=== PATIENT | male | born 1960 | race Caucasian/White ===

== ENCOUNTER 2016-07-23 08:04 | Inpatient (IN) | payer MEDICAID ==
[~2016-07-23] VITALS: Ht 180.3 cm; Wt 80.5 kg
[2016-07-23] VITALS (15 sets, daily range): BP systolic 80–159; BP diastolic 44–93
[2016-07-23] MEDS ORDERED: ACETAMINOPHEN 650 MG SUPP RC ONE (08:05)
--- NOTE | 2016-07-23 08:05 | NUR ---
Dr. Morales evaluating patient at bedside.
--- NOTE | 2016-07-23 08:05 | NUR ---
0755--Patient was BIBA at this time and taken to bed 01 via gurney per EMS.
--- NOTE | 2016-07-23 08:05 | NUR ---
PLACED BUSTER Amiigo CARESCAPE R860 VENTILATOR PLUGGED INTO RED OULTET TO A PORTEX #8 DCT CUFF PRESSURE CHECKED FOR MOV RN'S AT BEDSIDE FOR IV INSERTION, PHYSICAL HYGIENE AND OTHER PATIENT CARE LAY UP OPERATOR UNABLE TO OBTAIN OTHER VENTILATOR READINGS AT THIS TIME DUE TO FOREMENTIONED AND PATIENT MOVEMENT
--- NOTE | 2016-07-23 08:05 | NUR ---
RT at bedside.
[2016-07-23] MEDS ORDERED: ACETAMINOPHEN 325 MG SUPP RC ONE (08:10)
--- NOTE | 2016-07-23 08:14 | NUR ---
BIBA DUE RESP DISTRESS AND FEVER, APHASIC,FROM COMMUNITY EXTENDED, HX OF VENT DEPENDENTDENT DUE TO CVA, HX OF SEIZURES,MRSA SPUTUM, DM, HTN . PT EYES OPEN WITH TRACH, PORTEX 8, EMS BAGGING PT UPON ARRIVAL, PER EMS PT ALSO HAS EPISODES OF VOMITING DURING TRANSPORT, NOTED YELLOWISH OUTPUT ON GOWN, VITAL SIGN OBTAINED, PT WITH FEVER, COOLING MEAUSRES, WET WASH CLOT ON FOREHEAD, NOTED SMALL YELLOWISH BRUISE ON LEFT ARM, PT CONTRACTED ON UPPER AND LOWER EXTREMITIES, WITH GT, DRESSING APPLIED ON GT AND CHECK FOR RESIDUAL,NO RESIDUAL NOTED , ABLE TO FLUSH GT WITH 30 ML WATER, WITH CONDOM CATH IN PLACE, YELLOWISH URINE NOTED, DR. ENCISO AT BEDSIDE, AND CHARGE NURSE PUTTING IV LINE, WILL CHECK SACRAL LATER. HOB UP. Addendum: 07/23/16 at 0840 by [email or web address] SUCTIONED PT.
[2016-07-23] MEDS ORDERED: NACL 0.9% 1,000 ML IV SCH ×2 (08:19→14:40)
--- NOTE | 2016-07-23 08:30 | NUR ---
ER DIRECTOR Mauricio at bedside.
--- NOTE | 2016-07-23 08:33 | NUR ---
DR. ENCISO AWARE OF THE RESULT OF URINE DIPSTICK
--- NOTE | 2016-07-23 08:33 | NUR ---
LAB/XRAY AT BEDSIDE.
--- NOTE | 2016-07-23 08:39 | NUR ---
LAB AT BEDSIDE , DIRECTOR BUSTER TRYING TO PUT AN IV
[2016-07-23] MEDS ORDERED: LANOXIN0.125 MG GT (09:07)
[2016-07-23] MEDS ORDERED: ZOFRAN4 M1 GT (09:07)
[2016-07-23] MEDS ORDERED: DIOVAN80 M1 GT (09:07)
[2016-07-23] MEDS ORDERED: DULCOLAX10 M2 RC (09:07)
[2016-07-23] MEDS ORDERED: TYLENOL325 M2 GT (09:07)
[2016-07-23] MEDS ORDERED: ZAFIRLUKAST10 MG GT (09:07)
[2016-07-23] MEDS ORDERED: HYDRALAZINE10 MG GT (09:07)
[2016-07-23] MEDS ORDERED: NEXIUM20 MG GT (09:07)
[2016-07-23] MEDS ORDERED: DILANTIN-1125 MG/5 M GT (09:07)
[2016-07-23] MEDS ORDERED: KEPPRA100 MG/ML GT (09:07)
[2016-07-23] MEDS ORDERED: FERROUS SULF GT (09:07)
[2016-07-23] MEDS ORDERED: VITAMIN C500 MG/5 M GT (09:07)
[2016-07-23] MEDS ORDERED: NORCO 325 MG-51 TAB GT (09:07)
[2016-07-23] MEDS ORDERED: PRO STAT PO (09:07)
[2016-07-23] MEDS ORDERED: MULTIPLE VITAMI1 T25 GT (09:07)
--- NOTE | 2016-07-23 09:30 | NUR ---
ABG RESULTS GIVEN TO . ER PHYSICIAN REQUESTED PT BE PLACED ON FIO2 100%. VENT CHANGE CONFIRMED WITH ER PHYSICIAN.
--- NOTE | 2016-07-23 09:37 | NUR ---
DR. ENCISO INSERTING CENTRAL LINE AT BEDSIDE AT THIS TIME. WILL CONTINUE TO MONITOR.
--- NOTE | 2016-07-23 09:48 | NUR ---
DR. ENCISO FINISHED WITH CENTRAL LINE PLACEMENT ON RIGHT SUBCLAVIAN, WAITING FOR XRAY TO VERIFY PLACEMENT, PT EYES OPEN, PER DR. ENCISO ONE PORT HAS NO BLOOD RETURN, WILL RECHECK WHAT PORT HAS NO BLOOD RETURN , NOTED DRESSING ON SACRAL, WILL RECHECK MORE LATER.
--- NOTE | 2016-07-23 09:51 | NUR ---
XRAY AT BEDSIDE.
[2016-07-23] MEDS ORDERED: PIPERACILLIN/TAZOBACTAM 3.375 GM in DEXTROSE 5% 50 ML IV ONE (09:55)
[2016-07-23] MEDS ORDERED: NACL 0.9% 250 ML IV ONE (09:55)
[2016-07-23] MEDS ORDERED: NACL 0.9% 1,500 ML IV ONE (09:55)
[2016-07-23] MEDS ORDERED: PIPERACILLIN/TAZOBACTAM 3.375 GM VIAL IV ONE (10:01)
--- NOTE | 2016-07-23 10:12 | NUR ---
PER DR. ENCISO RED PORT NO BLOOD RETURN, PT EYES OPEN, MD AWARE STILL WITH FEVER AND PT PERSPIRING, LATEST VITAL SIGN OBTAINED, RT AT BEDSIDE,PER DR. ENCISO OK TO USE CENTRAL LINE.
[2016-07-23] MEDS ORDERED: ACETAMINOPHEN 325 MG TAB PO PRN (10:25)
[2016-07-23] MEDS ORDERED: ONDANSETRON 4 MG/2 ML VIAL IVP PRN ×2 (10:25→11:41)
[2016-07-23] MEDS ORDERED: DOCUSATE SODIUM 100 MG GELCAP PO PRN (10:25)
[2016-07-23] MEDS ORDERED: MORPHINE SULFATE 2 MG/ML SYR IVP PRN (10:25)
--- NOTE | 2016-07-23 10:25 | NUR ---
PATIENT TRANSFERRED TO RADIOLOGY FOR CT SCAN OF CHEST/ABDOMINAL REMOVED FROM VENTILATOR PLACED ON AMBU BAG TO SUPPLEMENTAL OXYGEN VIA E-TANK AT 15 LPM BAG DEPRESSION EVERY SIX SECONDS HR 112 SATURATION 100%
--- NOTE | 2016-07-23 10:26 | NUR ---
PT WENT TO CT VIA [facility] ASSSISTED BY CHARGE NURSE, AND RT WITH SECURITY SYSTEMS INTEGRATOR, PT EYES OPEN
--- NOTE | 2016-07-23 10:36 | NUR ---
TOLERATED CT SCAN PROCEDURE WELL WITHOUT INCIDENT TRANSFERRED BACK TO ED-1 AMBU BAG TO TRACH WITH SUPPLEMENATL OXYGEN AT 15 LPM BAG DEPRESSION EVERY SIX SECONDS HR 114 SATURATION 100% PLACED BACK ON A CorvaliusAPE R860 VENTILATOR WITH SAME SETIINGS PREVIOUS
--- NOTE | 2016-07-23 10:40 | NUR ---
Patient back from CT via [facility].
--- NOTE | 2016-07-23 10:45 | NUR ---
AWAKE TOLERATING VENTILATOR WELL WIHOUT INCIDENT BREATH SOUNDS RHONCHI BILATERAL WITH GOOD CHEST RISE DEEP TRACHEAL SUCTION FOR MODERATE THIN YELLOW SECRETIONS AIRWAY PATENT
--- NOTE | 2016-07-23 10:48 | NUR ---
PATIENT PRESENTING WITH EMESIS AT THIS TIME ORAL PHARYNGEAL SUCTION FOR COPIOUS GASTRIC CONTENT RN AT BEDSIDE AWARE
--- NOTE | 2016-07-23 10:50 | NUR ---
RT AT BEDSIDE SUCTIONING PT
[2016-07-23] MEDS ORDERED: ALBUTEROL SULFATE/IPRATROPIU 3 ML SOL IH PRN ×2 (11:05→11:40)
--- NOTE | 2016-07-23 11:07 | NUR ---
CHARGE NURSE INSERTING NEW CONDOM CATH
[2016-07-23] MEDS ORDERED: hydrALAZINE 10 MG TAB GT PRN (11:15)
[2016-07-23] MEDS ORDERED: ACETAMINOPHEN 325 MG TAB GT PRN (11:15)
[2016-07-23] MEDS ORDERED: HYDROcodone/APAP 5/325 MG 1 TAB TAB GT PRN ×2 (11:15)
[2016-07-23] MEDS: PHENYTOIN 100 MG/4 ML UDC GT SCH ×2 (11:15→21:19)
[2016-07-23] MEDS ORDERED: ONDANSETRON 4 MG TAB GT PRN (11:15)
[2016-07-23] MEDS ORDERED: BISACODYL 10 MG SUPP RC PRN (11:15)
--- NOTE | 2016-07-23 11:23 | NUR ---
Pt report given to junior. Transfer of care at this time.
--- NOTE | 2016-07-23 11:35 | NUR ---
PATIENT AND VENTILATOR TRANSFERRED TO ICU-7 PATIENT REMOVED CARESCAPE R860 VENTILATOR PLACED ON AMBU BAG TO TRACHEOSTOMY SUPPLEMENTAL OXYGEN PROVIDED VIA E-TANK AT 15 LPM BAG DEPRESSIN EVERY SIX SECONDS HR 106 SATURATION 100% TOLERATED TRANSFER WELL WITHOUT INCIDENT Aries BAZZI RCP AND Gabriel MANCINI RCP ATTENDING TRANSFER
--- NOTE | 2016-07-23 11:36 | NUR ---
Patient taken to ICU via gurney per nurse/RT.
--- NOTE | 2016-07-23 11:43 | NUR ---
PLACED PATIENT BACK ON A [employer] R860 VENTILATOR TO TRACHEOSTOMY TUBE WITH SAME SETTINGS NOTED PREVIUOSLY
--- NOTE | 2016-07-23 11:47 | NUR ---
ADMITTED 55 YEAR OLD MALE FROM ER VIA RNEY WITH A DX OF SEPSIS, ASPIRATION PNA, UTI. PT IS APHASIC, UNABLE TO FOLLOW SIMPLE COMMANDS, NON VERBAL, ABLE TO RESPOND TO PAINFUL STIMULI, VITALS STABLE AT THIS TIME, AFEBRILE WITH ST ON MONITOR, PT IS ON TRACH TO VENT WITH SETTINGS OF AC RATE OF 10, TIDAL VOLUME 600, FIO2 100%, PEEP OF 5, RHONCHI AUSCULTATED NOTED WITH GOOD CHEST RISING, PT HAS G-TUBE IN PLACE NOTED, ACTIVE BOWEL SOUNDS AUSCULTATED, CONDOM CATHETER IN PLACE WITH NO DRAINAGE NOTED AT THIS TIME, HAS SACRAL AREA DECUBITUS NOTED WITH MINIMAL DRAINAGE NOTED ON THE DRESSING, PT'S LEFT LEG IS CONTRACTED, NO S/S OF RESPIRATORY DISTRESS OR DISCOMFORT NOTED, MRSA SWAB COLLECTED, SAFETY/FALL/ASPIRATION/SZ PRECAUTION ENFORCED, WILL CONTINUE TO MONITOR.
--- NOTE | 2016-07-23 11:55 | NUR ---
DR. BAKER VISITED THE PT. WILL FOLLOW UP WITH ORDERS.
[2016-07-23] MEDS: CLINDAMYCIN 300 MG in DEXTROSE 5% 50 ML IV SCH ×3 (12:20→23:35)
--- NOTE | 2016-07-23 12:20 | NUR ---
DUE DILANTIN MEDICATION HELD, NOTIFIED PHARMACIST LITO REGARDING CURRENT DILANTIN LEVEL, PER LITO, HOLD THE DILANTIN.
--- NOTE | 2016-07-23 12:39 | NUR ---
PT ON VENTILATOR. VENT SETTINGS AC 10, VT 600, PEEP 5 AND FIO2 60%. TRACH CARE COMPLETED, GAUZE CHANGED ALONG WITH TRACH TIE AND INNER CANNULA. SITE AROUND STOMA SHOWS SLIGHT REDNESS AREA CLEANED. PT TRACH SIZE IS 8 PORTEX. AIRWAY IS PATENT AND TRACH IS SECURE. VENT ALARMS ARE ON AND FUNCTIONING. AMBU BAG IS PRESENT AT BEDSIDE. VENT IS PLUGGED INTO RED OUTLET. WILL CONTINUE TO MONITOR.
--- NOTE | 2016-07-23 13:03 | NUR ---
WOUND CARE NURSE AT BEDSIDE EVALUATING PT. PT HAD A LARGE SOLID BOWEL MOVEMENT, CLEANED AND CHANGED, WILL CONTINUE TO MONITOR.
[2016-07-23] MEDS: LEVOFLOXACIN 750 MG/D5W PREMIX 150 ML IV SCH (13:19)
[2016-07-23] MEDS: NACL 0.9% 1,000 ML IV SCH ×3 (13:20→21:34)
--- NOTE | 2016-07-23 13:20 | NUR ---
BP 81/58. DR. BEAULIEU NOTIFIED.
[2016-07-23] MEDS: ALBUTEROL SULFATE/IPRATROPIU 3 ML SOL IH SCH ×3 (15:14→23:18)
--- NOTE | 2016-07-23 15:22 | NUR ---
PT SUCTIONED OBTAINED LARGE AMOUNT OF BLOOD TINGED YELLOW SECRETIONS, AIRWAY IS PATENT. TRACH IS SECURE. WILL CONTINUE TO MONITOR.
--- NOTE | 2016-07-23 15:40 | NUR ---
PT CLEAN AND DRY, PT HAD LARGE AMOUNT OF SALIVA NOTED ON GOWN.
--- NOTE | 2016-07-23 16:19 | NUR ---
WOUND CARE EVALUATION NOTES: REASONS FOR EVALUATION: SACRAL WOUND COMPLETE SKIN ASSESSMENT DONE ON THIS 55 Y/O MALE PATIENT FROM [facility] TO [facility], WITH INITIAL DIAGNOSIS OF SEPSIS/ASPIRATION PNEUMONIA. PAST MEDICAL HISTORY INCLUDE CVA, CHRONIC RESPIRATORY FAILURE, DIABETES, HYPERTENSION AND SEIZURES. ALL ABOVE INFORMATION WAS OBTAINED FROM THE ADMISSION H&P. LABS ARE WBC 21.9, H/H 13.1/40.3, GLUCOSE 234, ALBUMIN 3.2, PT/INR 11.2/1.2 AND PTT 23.4. CURRENT MEDS INCLUDE MULTIVITAMINS, LEVOFLOXACIN, CLINDAMYCIN, NORCO AND MORPHINE. PATIENT IS AWAKE, NON VERBAL, EYES ARE NOT ABLE TO TRACK MOVEMENTS. SKIN WARM TO TOUCH WNL, TOENAILS WNL, NO EDEMA, FEW HAIR GROWTH AND +2 BILATERAL PEDAL PULSES. FC 14 FR PATENT AND INTACT TO YELLOW URINE IN MODERATE AMOUNT. RIGHT SUBCLAVIAN CENTRAL LINE NOTED WITH DRESSING DRY AND INTACT. NEEDS MAX ASSISTANCE IN TURNING. INITIAL PLAN OF CARE AND PRESSURE PREVENTIVE MEASURES DISCUSSED, UNABLE TO VERBALIZE UNDERSTANDING. WILL REINFORCE TEACHING. INTEGUMENTARY: COCCYX - ST III. PW WITH FUNGAL LIKE RASH RECOMMENDATIONS: -CLEANSE SACRALCOCCYX WITH NS AND GAUZE, PAT DRY, APPLY THERAHONEY GEL TO WOUND BED, ANTIGUNGAL CLEAR OINT TO PERIWOUND, COVER WITH COMPOSITE DRESSING Q DAY AND PRN WITH SOILING/DISPLACEMENT -TURN AND REPOSITION PATIETN Q 2H TO LEFT AND RIGHT SIDE ONLY TO OFFLOAD SACRALCOCCYX -ASSESS AND MONITOR SKIN CONDITION DURING POSITION CHANGE, PLEASE PAY PARTICULAR ATTENTION TO SACRALCOCCYX, ELBOWS AND HEELS -OFFLOAD BILATERAL HEELS BY PLACING PILLOWS UNDER CALVES AT ALL TIMES, UNLESS OTHERWISE CONTRAINDICATED -KEEP SKIN CLEAN AND DRY AT ALL TIMES. RECOMMENDATIONS DISCUSSED WITH PRIMARY RN AND RESIDENT PHYSICIAN, DR. VORA. WILL FOLLOW UP PATIENT Q 7 DAYS AND PRN. PLEASE CONTACT [facility] FOR ANY CONCERNS, QUESTIONS AND CHANGES IN WOUND CONDITION.
--- NOTE | 2016-07-23 17:18 | NUR ---
FIO2 DECREASED TO 50%. PT REMAINS ON DOCUMENTED VENT SETTINGS AC 10, VT 600, PEEP 5 FIO2 50%. PT SUCTIONED OBTAINED MODERATE AMOUNT OF THICK YELLOW SECRETIONS, AIRWAY IS PATENT. TRACH SECURE. VENT ALARMS REMAIN ON AND FUNCTIONING.
--- NOTE | 2016-07-23 17:23 | NUR ---
CALLED AND SPOKE TO DR. VORA AND INFORMED THAT PT HAS NO URINE NOTED ON CONDOM CATH. NEW ORDERS RECEIVED, WILL CARRY OUT NEW ORDER.
--- NOTE | 2016-07-23 17:35 | NUR ---
ENDORSED PT TO ADAL RAMIREZ FOR CONTINUITY OF CARE. PT IS STABLE AT THIS TIME.
--- NOTE | 2016-07-23 17:40 | NUR ---
ASSUMED CARE. TRACH TO VENT TV 600, FI02 50%, AC 10, PEEP 5. NO RESP. DISTRESS NOTED. RT. TLC W/ SMALL BLEEDING NOTED. IV 0.9 NS AT 120 ML/HR. GT TUBE INTACT. NPO FOR NOW. CONDOM CATH. LEAKING. COMPLETE BED BATH DONE. LINENS CHANGED. SCDS TO LOWER EXT.
--- NOTE | 2016-07-23 18:00 | NUR ---
OLIVARES CATH FR. 16 INSERTED ASEPTICALLY, OBTAINED 50 YELLOWISH URINE WITH WHITISH SEDIMENTS.
--- NOTE | 2016-07-23 19:35 | NUR ---
RECEIVED REPORT FROM CHARGE NURSE JAMES GALEAS. PATIENT IS AAOX1, NONVERBAL. EYES OPEN SPONTANEOUSLY BUT DOES NOT TRACK. PATIENT UNABLE TO FOLLOW VERBAL COMMANDS. BUE AND BLE ARE CONTRACTED. BREATH SOUNDS ARE CLEAR UPON AUSCULTATION. PATIENT IS TRACH TO VENT WITH SETTINGS OF FIO2 OF 50%, TIDAL VOLUME OF 600, A/C 10, AND PEEP OF 5. BOWEL SOUNDS ARE PRESENT. ABDOMEN IS DISTENDED, BUT IT IS SOFT AND NON-TENDER. THERE IS A G-TUBE PRESENT IN LEFT UPPER QUADRANT. THERE IS A OLIVARES CATHETER DRAINING TO GRAVITY WITH MODERATE AMOUNT OF YELLOW URINE NOTED. SCDS ARE IN PLACE FOR VTE PROPHYLAXIS. THERE IS A ISRAEL CATHETER IN THE THE RIGHT SUBCLAVIAN RECEIVING NORMAL SALINE AT 120 ML/HR. SITE IS DRY, INTACT AND ASYMPTOMATIC. THERE IS A SACRAL PRESSURE WOUND COVERED WITH DRESSING THAT IS DRY AND INTACT. HOB AT 30 DEGREES WITH BED IN LOW POSITION. CONTINUE TO MONITOR PATIENT.
--- NOTE | 2016-07-23 19:39 | NUR ---
PT RECEIVED FROM IRAM ON NOTED VENT SETTINGS. PT AWAKE, HAS A #8 PORTEX [address] IN [address]. BS COARSE BILATERALLY, DIMINISHED AFTER HHN TX AND SUCTIONING OF SCANT AMT THIN PINK TINGED SECRETIONS. NO ADVERSE EFFECTS NOTED. VENT ALARMS ON AND AUDIBLE, VENT PLUGGED INTO RED ELECTRICAL OUTLET, AMBU BAG ON SIDE OF VENT.
--- NOTE | 2016-07-23 19:50 | NUR ---
VAP ORAL CARE RENDERED. NO S/S OF SOB NOTED. CHANGED CVP DRESSING. CONTINUE TO MONITOR PATIENT.
--- NOTE | 2016-07-23 19:55 | NUR ---
PATIENT REPOSITIONED FOR COMFORT.
[2016-07-23] MEDS ORDERED: NACL 0.9% 1,000 ML IV PRN (20:50)
[2016-07-23] MEDS ORDERED: INSULIN ASPART SLIDING SCALE 100 UNITS/ML VIAL SUBQ PRN (20:50)
--- NOTE | 2016-07-23 20:50 | NUR ---
DR. VORA ON UNIT. PROVIDED DOCTOR WITH PATIENT'S STATUS. NEW PRN ORDERS GIVEN. WILL FOLLOW UP WITH NEW ORDERS.
[2016-07-23] MEDS ORDERED: VALSARTAN 80 MG TAB GT SCH (21:00)
[2016-07-23] MEDS ORDERED: levETIRAcetam 100 MG/ML ORASYR GT SCH (21:00)
[2016-07-23] MEDS: FERROUS SULFATE 300 MG/5 ML UDC GT SCH (21:17)
[2016-07-23] MEDS: SACCHAROMYCES 250 MG CAP GT SCH (21:17)
[2016-07-23] MEDS: MONTELUKAST SODIUM 10 MG TAB GT SCH (21:18)
--- NOTE | 2016-07-23 21:24 | NUR ---
VENT CHECKED. NO DISTRESS NOTED. NO SUCTIONING NEEDED AT THIS TIME.
[2016-07-23] MEDS: BLOOD GLUCOSE MONITORING 1 DEV DEV FS SCH (21:36)
--- NOTE | 2016-07-23 21:38 | NUR ---
TOLERATED SCHEDULED MEDICATION ADMINISTRATION WELL. DID NOT ADMINISTER SCHEDULED 2099 DIOVAN R/T BP IS 91/72. BLOOD SUGAR IS 112. NO INSULIN COVERAGE NEEDED AT THIS TIME. CONTINUE TO MONITOR PATIENT. Addendum: 07/23/16 at 2156 by Oscar Chavez RN CHARGE NURSE MADELYN GALEAS MADE AWARE THAT SCHEDULED 2099 DIOVAN WAS NOT ADMINISTERED R/T BP IS 91/72.
--- NOTE | 2016-07-23 22:32 | NUR ---
PATIENT REPOSITIONED FOR COMFORT. NO SIGNS OF SOB OR RESPIRATORY DISTRESS NOTED. HEAD OF THE BED AT 30 DEGREES WITH BED IN LOW POSITION. CONTINUE TO MONITOR PATIENT.
--- NOTE | 2016-07-23 23:32 | NUR ---
VENT CHECKED, PT AWAKE, INLINE HHN TX GIVEN. BS CLEAR. PT LAVAGED AND SUCTIONED SM AMT CREAM COLORED SECRETIONS. NO ADVERSE EFFECTS NOTED.
--- NOTE | 2016-07-23 23:41 | NUR ---
VAP ORAL CARE RENDERED. NO SIGNS OF SOB OR RESPIRATORY DISTRESS NOTED. HOB AT 30 DEGREES WITH BED IN LOW POSITION. CONTINUE TO MONITOR PATIENT.
[2016-07-24] VITALS (73 sets, daily range): BP systolic 67–143; BP diastolic 39–88
--- NOTE | 2016-07-24 01:13 | NUR ---
PATIENT REPOSITIONED FOR COMFORT. NO SIGNS OF SOB NOTED. HOB AT 30 DEGREES WITH BED IN LOW POSITION. CONTINUE TO MONITOR PATIENT.
[2016-07-24] MEDS: NACL 0.9% 1,000 ML IV SCH ×2 (01:16→09:02)
--- NOTE | 2016-07-24 01:40 | NUR ---
VENT CHECKED. PT AWAKE, BS APPEAR CLEAR, NO SUCTIONING NEEDED.
[2016-07-24] MEDS: ALBUTEROL SULFATE/IPRATROPIU 3 ML SOL IH SCH ×6 (03:43→23:45)
--- NOTE | 2016-07-24 04:00 | NUR ---
VENT CHECKED. HME AND TRACH GAUZE CHANGED. PT GIVEN HHN TX INLINE, LAVAGED AND SUCTIONED SMALL AMT CREAMY SECRETIONS. NO ADVERSE EFFECTS NOTED.
--- NOTE | 2016-07-24 04:30 | NUR ---
MORNING CARE RENDERED. BED BATH PROVIDED. CHANGED PATIENT'S GOWN AND LINENS. VAP ORAL CARE RENDERED. PATIENT REPOSITIONED FOR COMFORT. HOB AT 30 DEGREES WITH BED IN LOW POSITION. CONTINUE TO MONITOR PATIENT.
--- NOTE | 2016-07-24 04:50 | NUR ---
PATIENT RESTING IN BED, WATCHING TV. OFFERED TO ASSISTANCE FOR MORNING CARE TO PATIENT. PATIENT REFUSED MORNING CARE AT THIS TIME AND STATED "I WANT TO WAIT. I GOT A BATH YESTERDAY." PATIENT'S NEEDS MET AT THIS TIME. HOB AT 30 DEGREES WITH BED IN LOW POSITION. CALL LIGHT WITHIN PATIENT'S REACH. CONTINUE TO MONITOR PATIENT. Addendum: 07/24/16 at 0452 by Oscar Chavez RN WRONG PATIENT.
--- NOTE | 2016-07-24 04:52 | NUR ---
SOLE INKER AT BEDSIDE FOR SCHEDULED MORNING LAB DRAW.
[2016-07-24] MEDS: CLINDAMYCIN 300 MG in DEXTROSE 5% 50 ML IV SCH ×4 (06:25→23:19)
[2016-07-24] MEDS: BLOOD GLUCOSE MONITORING 1 DEV DEV FS SCH ×4 (06:28→21:08)
--- NOTE | 2016-07-24 06:32 | NUR ---
RECEIVED PT ON CARESCAPE ON A\C 12 VT 600 PEEP 5 FIO2 50 ALARMS ARE ON AND FUNCTIONAL BMV HOB PTS TRACH PORTEX 8 IS SECURE PT IN HF QUIET BS COARSE I\L LAVAGE AND SX LG YELLOW HHN GIVEN I\L WITH 3 MG DUONEB Addendum: 07/24/16 at 0857 by Kamilla Mae RT CORRECT RR IS 10
--- NOTE | 2016-07-24 06:42 | NUR ---
PATIENT REPOSITIONED FOR COMFORT. NO SIGNS OF SOB NOTED. HOB AT 30 DEGREES WITH BED IN LOW POSITION. CONTINUE TO MONITOR PATIENT.
--- NOTE | 2016-07-24 07:08 | NUR ---
ENDORSED CONTINUITY OF CARE TO LIZETH GALEAS.
--- NOTE | 2016-07-24 07:40 | NUR ---
RECEIVED REPORT FROM DRISS GALEAS. PATIENT IS NONVERBAL. OPEN EYES SPONTANEOUSLY BUT DOES NOT FOLLOW COMMANDS. BUE AND BLE ARE CONTRACTED. BREATH SOUNDS WHEEZES UPON AUSCULTATION. PATIENT IS TRACH TO VENT WITH SETTINGS OF FIO2 OF 50%, TIDAL VOLUME OF 600, A/C 10, AND PEEP OF 5. ACTIVE BOWEL SOUNDS . ABDOMEN IS DISTENDED, SOFT . G-TUBE PRESENT IN LEFT UPPER QUADRANT. THERE IS A OLIVARES CATHETER DRAINING TO GRAVITY WITH MODERATE AMOUNT OF LIGHT RIA URINE NOTED. SCDS ARE IN PLACE FOR VTE PROPHYLAXIS. A ISRAEL CATHETER IN THE THE RIGHT SUBCLAVIAN RECEIVING NORMAL SALINE AT 120 ML/HR. SITE IS DRY, INTACT AND ASYMPTOMATIC. SACRAL PRESSURE WOUND COVERED WITH DRESSING SITE DRY AND INTACT. NO FEVER AT THIS TIME. HOB AT 30 DEGREES WITH BED IN LOW POSITION. CONTINUE TO MONITOR PATIENT.
--- NOTE | 2016-07-24 07:54 | NUR ---
PATIENT HAS BEEN SCREENED AND CATEGORIZED HIGH NUTRITION RISK. PATIENT WILL BE SEEN WITHIN 1-2 DAYS OF ADMISSION. 07/24/16-07/25/[address]
[2016-07-24] MEDS ORDERED: LORazepam 2 MG/ML VIAL IVP PRN (08:00)
--- NOTE | 2016-07-24 08:13 | NUR ---
PT HAD SEIZURE FOR 45 SECONDS, ON AND OFF. TWITCH EYES AND MOUTH, SHAKING BUE. DR. APODACA AT BEDSIDE TO ASSESS PT. PER , ATIVAN 2MG IVP. ORDER CARRIED OUT, WILL CONTINUE TO MONITOR.
--- NOTE | 2016-07-24 08:54 | NUR ---
VENT CHECK BS CLEAR AIRWAY IS PATENT DECREASE FIO2 TO 40
[2016-07-24] MEDS: MULTIVITAMIN/MINERALS 15 ML UDBTL PO SCH (09:00)
[2016-07-24] MEDS ORDERED: levETIRAcetam 100 MG/ML ORASYR GT SCH (09:00)
[2016-07-24] MEDS: NOREPINEPHRINE 4 MG in DEXTROSE 5% 250 ML IV PRN ×3 (09:35→21:30)
--- NOTE | 2016-07-24 09:35 | NUR ---
STARTED PT ON LEVOPHED DRIP DUE TO PT'S HYPOTENSION PER MD ORDER.
[2016-07-24] MEDS: LANSOPRAZOLE 30 MG CAPDR GT SCH (09:39)
[2016-07-24] MEDS: DIGOXIN 0.125 MG TAB GT SCH (09:40)
[2016-07-24] MEDS: FERROUS SULFATE 300 MG/5 ML UDC GT SCH ×2 (09:40→21:09)
[2016-07-24] MEDS: SACCHAROMYCES 250 MG CAP GT SCH ×2 (09:42→21:09)
--- NOTE | 2016-07-24 10:00 | NUR ---
REPOSITIONED PT. PT HAD MODERATE AMOUNT OF GREENISH SOFT STOOL, CLEANED PT. SUCTIONED PT .
--- NOTE | 2016-07-24 10:16 | NUR ---
VENT CHECK BS COARSE I\L LAVAGE AND SX LG YELLOW I\L HHN WITH 3 MG DUONEB
--- NOTE | 2016-07-24 12:05 | NUR ---
PT IS UNRESPONSIVE TO NAME STIMULI. SMALL AMOUNT OF SOFT GREENISH STOOL NOTED WHEN REPOSITIONING PT. CLEANED PT. NO S/S OF RESPIRATORY DISTRESS NOTED. WILL CONTINUE TO MONITOR.
[2016-07-24] MEDS: FLUCONAZOLE 100 MG/NS PREMIX 50 ML IV SCH (12:12)
[2016-07-24] MEDS: HYDROCORTISONE NA SUCC 100 MG/2 ML VIAL IV SCH ×3 (12:27→23:20)
--- NOTE | 2016-07-24 12:56 | NUR ---
VENT CHECK BS CLEAR AIRWAY IS PATENT
--- NOTE | 2016-07-24 13:24 | NUR ---
07/24/16 RD INITIAL ASSESSMENT COMPLETED PLEASE REFER TO NUTRITION ASSESSMENT UNDER CARE ACTIVITY FOR ESTIMATED NUTRITIONAL NEEDS. RD RECOMMENDATIONS: 1. WHEN MEDICALLY APPROPRIATE CONSIDER INITIATE TUBE FEEDINGS NUTREN PULMONARY AT 10 ML/HR AND ADVANCE TOLERATED 10 ML Q6H TO GOAL OF 65 ML/HR --AT GOAL TUBE FEEDING PROVIDES 1560 ML TOTAL VOLUME, 2340 KCAL, 106 GM PROTEIN, 1220 ML FREE WATER AND MEETS 100% OF PT ESTIMATED KCAL AND 96% OF PT ESTIMATED PROTEIN NEEDS 2. RD WILL F/U 2-3 DAYS; HIGH RISK. HYACINTH KHAN RD
[2016-07-24] MEDS: PIPER/TAZO 3.375GM/D5W PREMIX 50 ML IV SCH ×2 (13:30→21:16)
--- NOTE | 2016-07-24 14:10 | NUR ---
REPOSITIONED PT. NO S/S OF RESPIRATORY DISTRESS NOTED. WILL CONTINUE TO MONITOR.
[2016-07-24] MEDS: LEVOFLOXACIN 750 MG/D5W PREMIX 150 ML IV SCH (14:19)
--- NOTE | 2016-07-24 14:52 | NUR ---
VENT CHECK BS COARSE I\L LAVAGE AND SX LG YELLOW CHANGE INNER CANNULA PORTEX 8 TRACH TIE GAUZE WITHOUT INCIDENT Addendum: 07/24/16 at 1511 by Kamilla Mae RT HHN GIVEN I\L WITH 3 MG DUONEB
[2016-07-24] MEDS: levETIRAcetam 1,000 MG in NACL 0.9% 100 ML IV SCH (16:25)
--- NOTE | 2016-07-24 16:48 | NUR ---
VENT CHECK BS COARSE I\L LAVAGE AND SX MOD YELLOW DECREASE FIO2 TO 30 SPO2 100
--- NOTE | 2016-07-24 17:00 | NUR ---
PT TEMP CHECKED 100 F. COOL MEASURE INITIATED. PUT COOL TOWEL ON PT'S FOREHEAD. WILL RECHECK.
--- NOTE | 2016-07-24 18:05 | NUR ---
PT OPEN EYES. PT SMALL AMOUNT OF GREENISH SOFT STOOL,CLEANED PT. NO S/S OF RESPIRATORY DISTRESS NOTED. STILL ON LEVOPHED DRIP 13MCG/MIN. VITALS STABLE AT THIS TIME. WILL CONTINUE TO MONITOR.
--- NOTE | 2016-07-24 19:10 | NUR ---
REPORT GIVEN TO DRISS GALEAS FOR THE CONTINUITY OF CARE. PT IN STABLE CONDITION AT THIS TIME.
[2016-07-24] MEDS ORDERED: THERAHONEY GEL 42.5 GM TP PRN (19:30)
--- NOTE | 2016-07-24 19:30 | NUR ---
RECEIVED PT ON THE SAME VENT SETTINGS, MED NEB IN LINE, SX LARGE WHITE FROTHY SECRETION, CHANGED DRESSING.
--- NOTE | 2016-07-24 19:48 | NUR ---
RECEIVED REPORT FROM LIZETH GALEAS. PATIENT IS AAOX1, NONVERBAL. EYES OPEN SPONTANEOUSLY BUT DOES NOT TRACK. PATIENT UNABLE TO FOLLOW VERBAL COMMANDS. BUE AND BLE ARE CONTRACTED. BREATH SOUNDS ARE CLEAR UPON AUSCULTATION. PATIENT IS TRACH TO VENT WITH SETTINGS OF FIO2 OF 50%, TIDAL VOLUME OF 600, A/C 10, AND PEEP OF 5. RESPIRATORY THERAPIST AT BEDSIDE TO COLLECT SPUTUM CULTURE PER DOCTOR'S ORDERS. BOWEL SOUNDS ARE PRESENT. ABDOMEN IS DISTENDED, BUT IT IS SOFT AND NON-TENDER. THERE IS A G-TUBE PRESENT IN LEFT UPPER QUADRANT. THERE IS A OLIVARES CATHETER DRAINING TO GRAVITY WITH MODERATE AMOUNT OF YELLOW URINE NOTED. SCDS ARE IN PLACE FOR VTE PROPHYLAXIS. THERE IS A ISRAEL CATHETER IN THE THE RIGHT SUBCLAVIAN RECEIVING NORMAL SALINE AT 50 ML/HR AND LEVOPHED AT 13 MCG/MIN. SITE IS DRY, INTACT AND ASYMPTOMATIC. THERE IS A SACRAL PRESSURE WOUND COVERED WITH DRESSING THAT IS DRY AND INTACT. VAP ORAL RENDERED. HOB AT 30 DEGREES WITH BED IN LOW POSITION. CONTINUE TO MONITOR PATIENT.
[2016-07-24] MEDS: MONTELUKAST SODIUM 10 MG TAB GT SCH (21:09)
--- NOTE | 2016-07-24 21:19 | NUR ---
TOLERATED SCHEDULED MEDICATIONS WELL WITH NO SIGNS OF SOB OR RESPIRATORY DISTRESS NOTED. BLOOD SUGAR IS 127. NO INSULIN COVERAGE NEEDED AT THIS TIME. SUCTIONED ORAL SECTION. MINIMAL AMOUNT OF WHITE CREAMY SPUTUM NOTED. HOB AT 30 DEGREES WITH BED IN LOW POSITION. CONTINUE TO MONITOR PATIENT.
--- NOTE | 2016-07-24 22:06 | NUR ---
PATIENT REPOSITIONED FOR COMFORT. NO SIGNS OF SOB OR RESPIRATORY DISTRESS NOTED. HOB AT 30 DEGREES WITH BED IN LOW POSITION. CONTINUE TO MONITOR PATIENT.
--- NOTE | 2016-07-24 23:28 | NUR ---
VAP ORAL CARE RENDERED.
[2016-07-25] VITALS (32 sets, daily range): BP systolic 93–147; BP diastolic 52–90
--- NOTE | 2016-07-25 01:11 | NUR ---
PATIENT REPOSITIONED FOR COMFORT. NO SIGNS OF SOB NOTED. HOB AT 30 DEGREES WITH BED IN LOW POSITION. CONTINUE TO MONITOR PATIENT.
[2016-07-25] MEDS: levETIRAcetam 1,000 MG in NACL 0.9% 100 ML IV SCH ×3 (01:12→16:56)
--- NOTE | 2016-07-25 01:30 | NUR ---
SX LARGE WHITE FROTHY SECRETION, NO DISTRESS NOTED
[2016-07-25] MEDS: NACL 0.9% 1,000 ML IV SCH (03:02)
--- NOTE | 2016-07-25 03:40 | NUR ---
MORNING CARE RENDERED. PATIENT HAD SMALL BM OF DARK GREEN LOOSE STOOL. BED BATH AND PERINEAL CARE PROVIDED. CHANGED LINENS AND GOWN. PATIENT REPOSITIONED FOR COMFORT. VAP ORAL CARE RENDERED. HOB AT 30 DEGREES WITH BED IN LOW POSITION. CONTINUE TO MONITOR PATIENT.
[2016-07-25] MEDS: ALBUTEROL SULFATE/IPRATROPIU 3 ML SOL IH SCH ×6 (03:50→23:59)
[2016-07-25] MEDS: PIPER/TAZO 3.375GM/D5W PREMIX 50 ML IV SCH ×3 (04:48→21:35)
[2016-07-25] MEDS: CLINDAMYCIN 300 MG in DEXTROSE 5% 50 ML IV SCH ×3 (05:54→17:50)
[2016-07-25] MEDS ORDERED: HYDROCORTISONE NA SUCC 100 MG/2 ML VIAL ONE (06:36)
[2016-07-25] MEDS: BLOOD GLUCOSE MONITORING 1 DEV DEV FS SCH ×4 (06:38→21:14)
[2016-07-25] MEDS: HYDROCORTISONE NA SUCC 100 MG/2 ML VIAL IV SCH ×3 (06:40→17:49)
--- NOTE | 2016-07-25 06:40 | NUR ---
BLOOD SUGAR IS 71. NO INSULIN COVERAGE IS NEEDED. CONTINUE TO MONITOR.
--- NOTE | 2016-07-25 06:57 | NUR ---
REC'D PT ON CARESCAPE VENT WITH SETTINGS AC10 VT 600 PEEP 5 FIO2 30% ALARMS ON AND FUNCTIONING PROPERLY, AMBU BAG AT SIDE OF VENTILATOR AND VENTILATOR IS PLUGGED INTO RED OUTLET, I\E TX GIVEN WITH DUONEB 3ML WITH NO ADVERSE REACTION POST TX B\S ARE COARSE BILATERALLY, SNX PT MODERATE AMT OF THICK CREAM COLOR SECRETIONS, PT IS TRACH WITH PORTEX #8 AND SKIN INTEGRITY IS INTACT.
--- NOTE | 2016-07-25 07:09 | NUR ---
ENDORSED CONTINUITY OF CARE TO LIZETH GALEAS.
--- NOTE | 2016-07-25 07:35 | NUR ---
RECEIVED REPORT FROM DRISS GALEAS. PATIENT IS NONVERBAL. EYES OPEN SPONTANEOUSLY BUT DOES NOT FOLLOW VERBAL COMMANDS. BUE AND BLE ARE CONTRACTED. BREATH SOUNDS ARE DIMINISHED UPON AUSCULTATION. PATIENT IS TRACH TO VENT WITH SETTINGS OF FIO2 OF 30%, TV 600, A/C 10, PEEP OF 5. BOWEL SOUNDS ACTIVE, ABDOMEN SOFT AND NON-TENDER. A G-TUBE PRESENT IN LEFT UPPER QUADRANT. OLIVARES CATHETER DRAINING TO GRAVITY WITH SMALL AMOUNT OF YELLOW URINE NOTED. SCDS ARE IN PLACE . CENTRAL LINE IN THE THE RIGHT SUBCLAVIAN RECEIVING NORMAL SALINE AT 50 ML/HR . SITE IS DRY, INTACT AND ASYMPTOMATIC. SACRAL PRESSURE WOUND COVERED WITH DRESSING WHICH IS DRY AND INTACT. VAP ORAL RENDERED. HOB AT 30 DEGREES WITH BED IN LOW POSITION. TEMP CHECKED 100.5, COOL MEASURE INITIATED. WILL CONTINUE TO MONITOR PATIENT. Addendum: 07/25/16 at 0810 by Tess Gillespie RN [employer] RECEIVED SHOWS [facility] S/S OF RESPIRATORY DISTRESS NOTED.
--- NOTE | 2016-07-25 08:05 | NUR ---
TEMP CHECKED 99.8 F. REPOSITIONED PT. SUCTIONED PT WITH SMALL AMOUNT OF CLEAR SECRETION . WILL CONTINUE TO MONITOR.
--- NOTE | 2016-07-25 08:46 | NUR ---
VENT CHECK, NO SXN REQUIRED AT THIS TIME, AIRWAY PATENT AND PT IS RESTING WITH NO SIGNS OF DISTRESS NOTED AT THIS TIME
[2016-07-25] MEDS: THERAHONEY GEL 42.5 GM TP SCH (09:00)
[2016-07-25] MEDS: ANTIFUNGAL CLEAR OINTMENT TP SCH (09:00)
[2016-07-25] MEDS ORDERED: levETIRAcetam 100 MG/ML VIAL IV ONE (09:18)
[2016-07-25] MEDS: DIGOXIN 0.125 MG TAB GT SCH (09:23)
[2016-07-25] MEDS: FERROUS SULFATE 300 MG/5 ML UDC GT SCH ×2 (09:24→21:34)
[2016-07-25] MEDS: LANSOPRAZOLE 30 MG CAPDR GT SCH (09:24)
[2016-07-25] MEDS: MULTIVITAMIN/MINERALS 15 ML UDBTL PO SCH (09:24)
[2016-07-25] MEDS: SACCHAROMYCES 250 MG CAP GT SCH ×2 (09:24→21:35)
--- NOTE | 2016-07-25 10:27 | NUR ---
VENT CHECK, I\L TX GIVEN WITH DUONEB 3ML WITH NO ADVERSE REACTION POST TX, B\S ARE COARSE BILATERALLY, SXN PT LARGE AMT OF CREAM COLOR SECRETIONS, PT IS RESTING WITH NO SIGNS OF DISTRESS NOTED AT THIS TIME
--- NOTE | 2016-07-25 10:32 | NUR ---
TEMP CHECKED 100.5 F, TYLENOL 325 MG GIVEN PER MD ORDER. WILL RECHECK.
--- NOTE | 2016-07-25 11:10 | NUR ---
TEMP CHECKED 99.3 F. WILL CONTINUE TO MONITOR.
[2016-07-25] MEDS: FLUCONAZOLE 100 MG/NS PREMIX 50 ML IV SCH (12:31)
--- NOTE | 2016-07-25 13:15 | NUR ---
PT DOES NOT FOLLOW COMMANDS. SUCTIONED PT WITH MODERATE AMOUNT OF CLEAR SECRETION. CLEANED PT.
--- NOTE | 2016-07-25 13:24 | NUR ---
VENT CHECK, NO SXN REQUIRED AT THIS TIME, PT IS RESTING WITH NO SIGNS OF DISTRESS NOTED AT THIS TIME
[2016-07-25] MEDS: LEVOFLOXACIN 750 MG/D5W PREMIX 150 ML IV SCH (13:46)
--- NOTE | 2016-07-25 14:12 | NUR ---
REPOSITION PT. SUCTIONED PT WITH SMALL AMOUNT OF CLEAR SECRETION. NO S/S OF RESPIRATORY DISTRESS NOTED, WILL CONTINUE TO MONITOR.
[2016-07-25] MEDS ORDERED: LIDOCAINE 1% 500 MG/50 ML VIAL INJ SCH (14:30)
--- NOTE | 2016-07-25 14:52 | NUR ---
WENT TO DO EEG BUT X-RAY DOING A LONG TEST. WILL DO EEG IN AM. DR DOLAN NOTIFIED.
--- NOTE | 2016-07-25 14:57 | NUR ---
PT HAVING XRAY PROCEDURE DONE THAT KEEPS TAKING XRAYS FOR THE NEXT HOUR
[2016-07-25] MEDS ORDERED: FUROSEMIDE 40 MG/4 ML VIAL IVP SCH (15:00)
--- NOTE | 2016-07-25 15:47 | NUR ---
SS NOTE: SENT CURRENT MICROBIOLOGY TO [facility], RECEIVED FAX CONFIRMATION
--- NOTE | 2016-07-25 16:05 | NUR ---
VENT CHECK, SXN PT SMALL AMT OF THICK CREAM COLOR SECRETIONS, PT IS DONE WITH XRAY PROCEDURE
--- NOTE | 2016-07-25 16:13 | NUR ---
PT HAD LARGE AMOUNT OF LIQUID GREENISH STOOL. CLEANED PT, CHANGED LINEN, GOWN , BED BATH GIVEN, WILL CONTINUE TO MONITOR.
--- NOTE | 2016-07-25 17:10 | NUR ---
VENT CHECK, SXN PT MODERATE AMT OF THICK CREAM COLOR SECRETIONS, PT IS GETTING CLEANED
--- NOTE | 2016-07-25 18:10 | NUR ---
PT HAD LARGE AMOUNT OF LIQUID GREENISH STOOL, CLEANED PT, REPOSITIONED PT. NO SOB. WILL CONTINUE TO MONITOR.
--- NOTE | 2016-07-25 19:15 | NUR ---
REPORT GIVEN TO JEWEL GALEAS. PT IN STABLE CONDITION AT THIS TIME. VITALS WITHIN NORMAL.
--- NOTE | 2016-07-25 19:15 | NUR ---
RECEIVED REPORT FROM ADAL STANLEY. PATIENT IS NONVERBAL. EYES OPEN SPONTANEOUSLY BUT DOES NOT FOLLOW VERBAL COMMANDS. TRACH TO VENT WITH SETTINGS OF FIO2 OF 30%, TV 600, A/C 10, PEEP 5. BREATHING EVEN AND UNLABORED, DIMINISHED LUNG SOUNDS. SR ON MONITOR. CENTRAL LINE AT RIGHT SUBCLAVIAN, C/D/I, RUNNING NS AT 50 ML/HR. ACTIVE BOWEL SOUNDS. GT PRESENT, RESIDUAL 30ML. NO TUBE FEEDING ORDER AT THIS TIME. ON OLIVARES CATHETER, DRAINING WELL TO GRAVITY WITH YELLOW URINE. BUE AND BLE ARE CONTRACTED. SCD'S IN PLACE. AFEBRILE, SKIN IS WARM AND DRY TO TOUCH, SACRAL PRESSURE WOUND PRESENT (SEE WOUND ASSESSMENT). SAFETY PRECAUTION, ASPIRATION PRECAUTION, AND SEIZURE PRECAUTION IN PLACE, VSS, WILL CONTINUE TO MONITOR.
--- NOTE | 2016-07-25 20:00 | NUR ---
POSITION CHANGED FOR OFF LOAD PRESSURE, ORAL CARE PROVIDED, NO CHANGE OF CONDITION AT THIS TIME, VSS.
[2016-07-25] MEDS ORDERED: PHENYTOIN 100 MG/4 ML UDC GT SCH (21:00)
--- NOTE | 2016-07-25 21:00 | NUR ---
SCHEDULED MEDICATION GIVEN VIA GT TUBE, PATIENT TOLERATED WELL.
[2016-07-25] MEDS: MONTELUKAST SODIUM 10 MG TAB GT SCH (21:35)
[2016-07-25] MEDS: PHENYTOIN 100 MG/4 ML UDC GT SCH (21:35)
--- NOTE | 2016-07-25 22:00 | NUR ---
NO CHANGE OF CONDITION, POSITION CHANGED FOR OFF LOAD PRESSURE.
[2016-07-26] VITALS (24 sets, daily range): BP systolic 99–144; BP diastolic 50–92
--- NOTE | 2016-07-26 | NUR ---
NO CHANGE OF CONDITION AT THIS TIME, POSITION CHANGED FOR OFF LOAD PRESSURE, ORAL CARE PROVIDED.
[2016-07-26] MEDS: HYDROCORTISONE NA SUCC 100 MG/2 ML VIAL IV SCH ×4 (00:04→18:01)
[2016-07-26] MEDS: CLINDAMYCIN 300 MG in DEXTROSE 5% 50 ML IV SCH (00:05)
--- NOTE | 2016-07-26 00:16 | NUR ---
ADMINISTERED HHNTX, SUCTION MOD AMT OF THIN/THICK/FROTHY CREAM SECRETIONS, CHANGED CHRISTINA, HME, TRACH GAUZE AND TRACH TIE, TOLERATED WELL. NO RESP DISTRESS NOTED, TOLERATING SUPPORT WELL.
--- NOTE | 2016-07-26 00:50 | NUR ---
DR. MAYFIELD CAME TO SEE PATIENT, NEW ORDER OBTAINED AND CARRIED OUT.
[2016-07-26] MEDS ORDERED: TOBRAMYCIN PER PHARMACY MC PRN ×2 (00:55)
[2016-07-26] MEDS: levETIRAcetam 1,000 MG in NACL 0.9% 100 ML IV SCH ×3 (01:16→18:00)
--- NOTE | 2016-07-26 02:00 | NUR ---
POSITION CHANGED FOR OFF LOAD PRESSURE, NO CHANGE OF CONDITION AT THIS TIME.
[2016-07-26] MEDS ORDERED: TOBRAMYCIN IV SCH (03:05)
[2016-07-26] MEDS ORDERED: DEXTROSE 5% IV SCH (03:05)
[2016-07-26] MEDS ORDERED: TOBRAMYCIN 80 MG/2 ML VIAL ONE ×2 (03:34→03:44)
[2016-07-26] MEDS: ALBUTEROL SULFATE/IPRATROPIU 3 ML SOL IH SCH ×6 (03:43→23:24)
[2016-07-26] MEDS ORDERED: MEROPENEM 1,000 MG in NACL 0.9% 100 ML IV SCH (03:56)
[2016-07-26] MEDS ORDERED: MEROPENEM 500 MG VIAL IV ONE (03:58)
--- NOTE | 2016-07-26 04:00 | NUR ---
AM CARE PROVIDED, [place] CARE PROVIDED, ORAL CARE PROVIDED. POSITION CHANGED FOR OFF LOAD PRESSURE.
[2016-07-26] MEDS ORDERED: HYDROCORTISONE NA SUCC 100 MG/2 ML VIAL ONE (05:59)
[2016-07-26] MEDS: NACL 0.9% 1,000 ML IV SCH (06:00)
--- NOTE | 2016-07-26 06:00 | NUR ---
NO CHANGE OF CONDITION, POSITION CHANGED FOR OFF LOAD PRESSURE.
[2016-07-26] MEDS: BLOOD GLUCOSE MONITORING 1 DEV DEV FS SCH ×4 (06:58→21:15)
--- NOTE | 2016-07-26 07:20 | NUR ---
REPORT GIVEN TO ADAL RANDHAWA. PT IN STABLE CONDITION AT THIS TIME. VITALS WITHIN NORMAL.
--- NOTE | 2016-07-26 07:30 | NUR ---
REPORT RECEIVED FROM JEWEL RN, PT AWAKE, BREATHING NORMALLY, TRACH TO VENT, VENT SETTING AT FIO2 30%, RESP 10, AND PEEP OF FIVE, LUNG SOUNDS DIMINISHED TO LOWER LOBES, SB TO SR ON THE MONITOR, S1 S2 HEARD,BOWEL SOUND PRESENT TO ALL QUADRANTS, MD APODACA MADE AWARE OF GT FEEDING POSSIBILITIES, BLADER NON DISTENDED, OLIVARES CATHETER INTACT AND DRAINING WELL. SKIN NON INTACT TO COCCYX AND SCROTUM, WILL CONTINUE TO MONITOR CLOSELY.
--- NOTE | 2016-07-26 07:51 | NUR ---
RECEIVED ON A [employer] R860 VENTILATOR PLUGGED INTO RED OUTLET TOLERATING WELL WITHOUT ADVERSE REACTIONS TO A PORTEX #8 DCT AIRWAY SECURED WITH A STOCKED TRACH TIE CUFF PRESSURE CHECKED FOR MOV AMBU BAG NOTED AT HOB LOC QUIET BREATH SOUNDS RHONCHI BILATERAL WITH GOOD CHEST RISE DEEP TRACHEAL SUCTION FOR LARGE THICK YELLOW SECRETIONS AIRWAY PATENT
--- NOTE | 2016-07-26 08:00 | NUR ---
DR. APODACA AND DR. XAVIER IS AWARE OF NO BLOOD RETURN FROM CENTRAL LINE. BOTH MD AWARE OF PT HR RANGING FROM 38 TO 70, NO NEW ORDER AT THIS TIME.
[2016-07-26] MEDS: PHENYTOIN 100 MG/4 ML UDC GT SCH ×2 (08:50→21:56)
[2016-07-26] MEDS: FERROUS SULFATE 300 MG/5 ML UDC GT SCH ×2 (08:50→21:56)
[2016-07-26] MEDS: DIGOXIN 0.125 MG TAB GT SCH (08:51)
[2016-07-26] MEDS: SACCHAROMYCES 250 MG CAP GT SCH ×2 (08:51→21:56)
[2016-07-26] MEDS: LANSOPRAZOLE 30 MG CAPDR GT SCH (08:51)
--- NOTE | 2016-07-26 08:52 | NUR ---
PT HR RANGING FROM 60 TO 70, LANOXIN GIVEN, MADE AWARE.
[2016-07-26] MEDS ORDERED: KCL 20 MEQ/WATER INJ PREMIX 200 ML IV SCH (09:00)
--- NOTE | 2016-07-26 09:05 | NUR ---
HEPARIN 166 UNITS INSTILL IN R SUBCLAVIAN CATHETER TO CHECK PLACEMENT, AT BED SIDE.
--- NOTE | 2016-07-26 09:07 | NUR ---
NOTIFIED DR. XAVIER THAT PATIENT'S HR GOES DOWN TO 35 TO 38 PERIODICALLY, BP 134/56. AWARE.
--- NOTE | 2016-07-26 09:20 | NUR ---
C-XRAY IS DONE FOR CENTRAL LINE PLACEMENT
--- NOTE | 2016-07-26 09:44 | NUR ---
NO EVIDENCE OF PULMONARY DISTRESS NOTED AT THIS TIME BREATH SOUNDS CLEAR BILATERAL WITH GOOD CHEST RISE
--- NOTE | 2016-07-26 10:04 | NUR ---
NOTIFIED DR. XAVIER THAT PATIENT'S XRAY IMAGE IS UP. ALSO THAT CENTRAL LINE IS STILL CLOTTED AND HR IS SUSTAINED AT 39BPM WITH BP 118/59. RN'S ARE TRYING TO PUT IN A PERIPHERAL IV AT THIS TIME TO GIVE POTASSIUM. STATED HE WILL PLAN TO PUT ANOTHER CENTRAL LINE IN.
[2016-07-26] MEDS: MULTIVITAMIN/MINERALS 15 ML UDBTL PO SCH (10:28)
[2016-07-26] MEDS: ANTIFUNGAL CLEAR OINTMENT TP SCH (10:29)
[2016-07-26] MEDS: THERAHONEY GEL 42.5 GM TP SCH (10:30)
--- NOTE | 2016-07-26 10:30 | NUR ---
PT HAD BM, REPOSITIONED, ORAL CARE PROVIDED, SECRETION NOTED. WILL CONTINUE TO MONITOR.
--- NOTE | 2016-07-26 12:16 | NUR ---
ASLEEP RESTING WELL NO DISTRESS NOTED BREATH SOUNDS CLEAR BILATERAL WITH GOOD CHEST RISE AIRWAY PATENT
--- NOTE | 2016-07-26 12:25 | NUR ---
EQUIPMENT CHANGED: PORTEX SUCTION CATHETER, DIC, HME, OMINI FLEX AND NEB STEPHANIE ADAPTER TOLERATED PROCEDURE WELL WITHOUT INCIDENT
--- NOTE | 2016-07-26 12:49 | NUR ---
PT ASLEEP, HR 66 ON THE MONITOR, REPOSITIONED, ORAL CARE PROVIDED.
[2016-07-26] MEDS: MEROPENEM 1,000 MG in NACL 0.9% 100 ML IV SCH ×2 (12:59→21:56)
--- NOTE | 2016-07-26 13:32 | NUR ---
ASLEEP RESTING WELL NO APPARENT DISTRESS NOTED BREATH SOUNDS RHONCHI BILATERAL GOOD CHEST RISE DEEP TRACHEAL SUCTION FOR LARGE THICK YELLOW SECRETIONS AIRWAY PATENT
--- NOTE | 2016-07-26 13:48 | NUR ---
PT COMFORTABLE, RT AT BEDSIDE, WILL CONTINUE TO MONITOR, NO S/S OF ANY DISTRESS AT THIS TIME.
--- NOTE | 2016-07-26 14:47 | NUR ---
DR. VORA AND STUDENT AT BEDSIDE TO REINSERT PT'S CENTRAL LINE.
--- NOTE | 2016-07-26 15:20 | NUR ---
RESIDENT MD'S AT BEDSIDE FOR CENTRAL LINE INSERTION TECHNICAL EDUCATION TEACHER TO ATTEMPT HHN THERAPY AT A LATER TIME NO SOB NOTED
[2016-07-26] MEDS ORDERED: INSULIN LISPRO SLIDING SCALE 100 UNITS/ML VIAL SUBQ PRN (15:55)
--- NOTE | 2016-07-26 15:58 | NUR ---
CENTRAL LINE PROCEDURE DONE LOC ASLEEP NO DISTRESS NOTED BREATH SOUNDS CLEAR BILATERAL GOOD CHEST RISE
[2016-07-26] MEDS ORDERED: ATROPINE 0.4 MG/ML VIAL IVP PRN (16:00)
--- NOTE | 2016-07-26 17:35 | NUR ---
NO RESPIRATORY DISTRESS NOTED BREATH SOUNDS COARSE RHONCHI BILATERAL GOOD CHEST RISE DEEP TRACHEAL SUCTION FOR LARGE THICK YELLOW SECRETIONS AIRWAY PATENT TRACH CARE DONE NO SKIN BREAKDOWN NOTED AT STOMA SITE TRACH DRAIN SPONGE CHANGED
[2016-07-26] MEDS ORDERED: PROBIOTIC SCREEN 1 EA MISC MC PRN (17:55)
--- NOTE | 2016-07-26 19:18 | NUR ---
REPORT GIVEN TO ADAL HOLLOWAY.
--- NOTE | 2016-07-26 19:20 | NUR ---
RECEIVED REPORT FROM ADAL RANDHAWA. PATIENT IS NONVERBAL. EYES OPEN SPONTANEOUSLY BUT DOES NOT FOLLOW VERBAL COMMANDS. TRACH TO VENT WITH SETTINGS OF FIO2 OF 30%, TV 600, A/C 10, PEEP 5. BREATHING EVEN AND UNLABORED, DIMINISHED LUNG SOUNDS. SB ON MONITOR. CENTRAL LINE AT RIGHT SUBCLAVIAN, ONLY BROWN CORD PATENT WITH GOOD BLOOD RETURN, WHITE CORD AND BLUE CORD ARE LEAKING WHEN FLUSH WITH NS, NO BLOOD RETURN AT THIS TIME. PERIPHERAL IV 24GA TO LEFT HAND, RUNNING NS AT 50 ML/HR. ACTIVE BOWEL SOUNDS. GT PRESENT, RESIDUAL 0ML. TUBE FEEDING WITH DIABETISOURCE AC AT 20ML/HR AND FREE WATER 100ML Q6HR. ON OLIVARES CATHETER, DRAINING WELL TO GRAVITY WITH DARK YELLOW URINE. BUE AND BLE ARE CONTRACTED. SCD'S IN PLACE. AFEBRILE, SKIN IS WARM AND DRY TO TOUCH, SACRAL PRESSURE WOUND PRESENT (SEE WOUND ASSESSMENT). SAFETY PRECAUTION, ASPIRATION PRECAUTION, AND SEIZURE PRECAUTION IN PLACE, VSS, WILL CONTINUE TO MONITOR. Addendum: 07/26/16 at 2107 by Anoop Brown RN CENTRAL LINE NOT ABLE TO USE AT THIS TIME DUE TO TWO LINES LEAKING AND NO BLOOD RETURN, WILL INFORM .
--- NOTE | 2016-07-26 20:20 | NUR ---
POSITION CHANGED FOR OFF LOAD PRESSURE, ORAL CARE PROVIDED, NO CHANGE OF CONDITION AT THIS TIME, VSS.
--- NOTE | 2016-07-26 21:20 | NUR ---
DR. MAYFIELD CAME IN TO SEE PATIENT, NO NEW ORDER AT THIS TIME.
--- NOTE | 2016-07-26 21:40 | NUR ---
SCHEDULED MEDICATION GIVEN VIA GT TUBE, PATIENT TOLERATED WELL, NO ADVERSE EFFECT NOTED.
[2016-07-26] MEDS: MONTELUKAST SODIUM 10 MG TAB GT SCH (21:56)
--- NOTE | 2016-07-26 22:15 | NUR ---
NO CHANGE OF CONDITION, POSITION CHANGED FOR OFF LOAD PRESSURE.
[2016-07-27] VITALS (24 sets, daily range): BP systolic 80–178; BP diastolic 47–111
--- NOTE | 2016-07-27 | NUR ---
NO CHANGE OF CONDITION AT THIS TIME, POSITION CHANGED FOR OFF LOAD PRESSURE.
[2016-07-27] MEDS: HYDROCORTISONE NA SUCC 100 MG/2 ML VIAL IV SCH ×4 (00:29→17:41)
[2016-07-27] MEDS: levETIRAcetam 1,000 MG in NACL 0.9% 100 ML IV SCH ×3 (00:29→17:12)
--- NOTE | 2016-07-27 02:00 | NUR ---
POSITION CHANGED FOR OFF LOAD PRESSURE, NO CHANGE OF CONDITION AT THIS TIME.
[2016-07-27] MEDS: ALBUTEROL SULFATE/IPRATROPIU 3 ML SOL IH SCH ×6 (03:34→23:19)
--- NOTE | 2016-07-27 04:00 | NUR ---
AM CARE PROVIDED, PATIENT HAD A WATERARY GREENISH COLORED STOOL, [place] CARE PROVIDED, ORAL CARE PROVIDED. POSITION CHANGED FOR OFF LOAD PRESSURE.
[2016-07-27] MEDS: MEROPENEM 1,000 MG in NACL 0.9% 100 ML IV SCH ×3 (04:49→21:31)
[2016-07-27] MEDS: NACL 0.9% 1,000 ML IV SCH ×2 (05:00→21:30)
--- NOTE | 2016-07-27 06:00 | NUR ---
NO CHANGE OF CONDITION AT THIS TIME, POSITION CHANGED FOR OFF LOAD PRESSURE.
[2016-07-27] MEDS: BLOOD GLUCOSE MONITORING 1 DEV DEV FS SCH ×4 (06:54→22:46)
--- NOTE | 2016-07-27 06:55 | NUR ---
RECEIVED TRACH PT ON VENT WITH PORTEX 8 TRACH. VENT SETTINGS AC 10, VT 600, PEEP 5 AND FIO2 30%. PT SUCTIONED AND OBTAINED MINIMAL AMOUNTS OF CLEAR/WHITE SECRETIONS. AIRWAY IS PATENT, TRACH IS SECURE. PT IS AWAKE , NOT ALERT. PT IS NOT SOB AND NOT IN RESPIRATORY DISTRESS AT THIS TIME. VENT IS PLUGGED INTO RED OUTLET WITH ALARMS ON AND FUNCTIONING. AMBU BAG IS PRESENT AT BEDSIDE .WILL CONTINUE TO MONITOR.
[2016-07-27] MEDS ORDERED: HYDROCORTISONE NA SUCC 100 MG/2 ML VIAL ONE (06:59)
--- NOTE | 2016-07-27 08:00 | NUR ---
RECEIVED REPORT FROM JEWEL GALEAS. PATIENT IS UNRESPONSIVE TO NAME STIMULI. BUSINESS LAW PROFESSOR SHOWS SB. TRACH TO VENT WITH SETTINGS OF FIO2 = 30%, TV 600, A/C 10, PEEP 5. BREATHING EVEN AND UNLABORED, DIMINISHED LUNG SOUNDS. CENTRAL LINE AT RIGHT SUBCLAVIAN, ONLY BROWN CORD PATENT WITH GOOD BLOOD RETURN, WHITE CORD AND BLUE CORD ARE LEAKING WHEN FLUSH WITH NS, NO BLOOD RETURN . PERIPHERAL IV 24GA TO LEFT HAND, RUNNING NS AT 50 ML/HR. ACTIVE BOWEL SOUNDS. GT PRESENT,NO RESIDUAL . TUBE FEEDING WITH DIABETISOURCE AC AT 20ML/HR AND FREE WATER 100ML Q6HR. ON OLIVARES CATHETER, DRAINING WELL TO GRAVITY WITH SMALL AMOUNT OF YELLOW URINE. BUE AND BLE ARE CONTRACTED. NO FEVER, BUE WEEPING, SACRAL PRESSURE WOUND PRESENT (SEE WOUND ASSESSMENT). SCD'S IN PLACE.SAFETY PRECAUTION, ASPIRATION PRECAUTION AND SEIZURE PRECAUTION IN PLACE, VSS, WILL CONTINUE TO MONITOR.
--- NOTE | 2016-07-27 08:30 | NUR ---
BEDSIDE MONITOR STILL SHOWS SB, PT DOES NOT OPEN EYES AT THIS TIME. ORAL CARE GIVEN, REPOSITIONED PT TO MAKE PT COMFORTABLE, OFF LOAD PRESSURE AREA. WILL CONTINUE TO MONITOR.
--- NOTE | 2016-07-27 09:10 | NUR ---
DR. VORA AWARE THE CENTRAL LINE DOES NOT HAVE BLOOD RETURN .
--- NOTE | 2016-07-27 09:11 | NUR ---
VENT CHECK COMPLETED. PT NOT SOB AND NOT IN RESPIRATORY DISTRESS AT THIS TIME. WILL CONTINUE TO MONITOR.
[2016-07-27] MEDS: SACCHAROMYCES 250 MG CAP GT SCH ×2 (09:29→21:30)
[2016-07-27] MEDS: MULTIVITAMIN/MINERALS 15 ML UDBTL PO SCH (09:29)
[2016-07-27] MEDS: FERROUS SULFATE 300 MG/5 ML UDC GT SCH ×2 (09:29→21:30)
[2016-07-27] MEDS: PHENYTOIN 100 MG/4 ML UDC GT SCH ×2 (09:29→21:30)
[2016-07-27] MEDS: LANSOPRAZOLE 30 MG CAPDR GT SCH (09:29)
[2016-07-27] MEDS: ANTIFUNGAL CLEAR OINTMENT TP SCH (09:31)
[2016-07-27] MEDS: THERAHONEY GEL 42.5 GM TP SCH (09:32)
[2016-07-27] MEDS: TOBRAMYCIN 500 MG in DEXTROSE 5% 100 ML IV SCH (10:15)
--- NOTE | 2016-07-27 10:20 | NUR ---
SUCTIONED PT WITH SMALL AMOUNT OF CLEAR SECRETION, NO SOB AT THIS TIME. REPOSITIONED PT.
--- NOTE | 2016-07-27 12:24 | NUR ---
PT SUCTIONED OBTAINED SMALL AMOUNT OF WHITE/CLEAR SECRETIONS. AIRWAY IS PATENT TRACH SECURE. PT ORALLY SUCTIONED OBTAINED SMALL AMOUNT OF CLEAR SECRETIONS. PT NOT IN ANY DISTRESS. WILL CONTINUE TO MONITOR.
--- NOTE | 2016-07-27 12:30 | NUR ---
CARDIOLOGY CALLED IN TO UPDATE IN PATIENT 'S CONDITION,MADE AWARE OF PATIENT STILL HAS SINUS BRADYCARDIA WITH HEART RATE IS IN 40'S/MIN AND BP IS WITHIN NORMAL. ORDERS RECEIVED FOR EKG , ECHOCARDIOGRAM,TROPONIN AND DIGOXIN LEVEL. NURSE LIZETH WAS INFORMED.
--- NOTE | 2016-07-27 13:27 | NUR ---
FORK LIFT MECHANIC AT BEDSIDE.
--- NOTE | 2016-07-27 13:38 | NUR ---
PT SUCTIONED OBTAINED SMALL AMOUNT OF PALE YELLOW SECRETIONS,AIRWAY IS PATENT, TRACH SECURE. WILL CONTINUE TO MONITOR.
--- NOTE | 2016-07-27 15:12 | NUR ---
07/27/16 RD FOLLOW UP COMPLETED PLEASE REFER TO NUTRITION ASSESSMENT UNDER CARE ACTIVITY FOR ESTIMATED NUTRITIONAL NEEDS. RD RECOMMENDATIONS: 1. RECOMMEND INCREASE TUBE FEEDING 10 ML Q6H TOLERATED TO GOAL OF DIABETISOURCE AC AT 65 ML/HR WITH PROSOURCE BID VIA GTUBE --AT GOAL TUBE FEEDING AND PROTEIN SUPPLEMENTATION TOGETHER WILL PROVIDE 1710 ML TOTAL VOLUME, 2136 KCAL, 131 GM PROTEIN, 1374 ML FREE WATER AND MEETS 98% OF PT ESTIMATED KCAL NEEDS AND 100% OF PT ESTIMATED PROTEIN NEEDS 2. RD WILL F/U 2-3 DAYS; HIGH RISK. HYACINTH KHAN RD
--- NOTE | 2016-07-27 16:15 | NUR ---
PT OPENS EYES SPONTANEOUSLY, TURNED PT, PT HAD MODERATE AMOUNT OF BROWNISH SOFT STOOL, CLEANED PT, WILL CONTINUE TO MONITOR.
[2016-07-27] MEDS ORDERED: LEVOTHYROXINE 0.025 MG TAB PO SCH (16:50)
[2016-07-27] MEDS ORDERED: LEVOTHYROXINE 0.025 MG TAB GT SCH (16:51)
--- NOTE | 2016-07-27 17:04 | NUR ---
PT REMAINS ON DOCUMENTED SETTINGS. PT SUCTIONED OBTAINED SMALL AMOUNT OF WHITE SECRETIONS. AIRWAY IS PATENT TRACH SECURE. VENT ALARMS REMAIN ON AND FUNCTIONING. PT NOT SOB AND NOT IN RESPIRATORY DISTRESS AT THIS TIME.
--- NOTE | 2016-07-27 19:10 | NUR ---
REPORT GIVEN TO VINCE GALEAS. PT HR 45, BP 148/62, O2 SAT 100% AT THIS TIME.
--- NOTE | 2016-07-27 20:07 | NUR ---
IN BED TRACH TO VENT BR UP GT, TF CONNECTED HOB UP IC OK, CENTRAL LINE NOT IN USE, PER REPORT, CATHFLO GIVEN, NOT WORKING, MD AWARE NO CVP OLIVARES IN [id number] PEEP5 RATE 10
[2016-07-27] MEDS: MONTELUKAST SODIUM 10 MG TAB GT SCH (21:29)
[2016-07-28] VITALS (24 sets, daily range): BP systolic 103–163; BP diastolic 58–93
[2016-07-28] MEDS: HYDROCORTISONE NA SUCC 100 MG/2 ML VIAL IV SCH ×4 (00:26→18:00)
[2016-07-28] MEDS: levETIRAcetam 1,000 MG in NACL 0.9% 100 ML IV SCH ×3 (00:26→18:00)
[2016-07-28] MEDS: ALBUTEROL SULFATE/IPRATROPIU 3 ML SOL IH SCH ×6 (03:32→23:17)
[2016-07-28] MEDS: MEROPENEM 1,000 MG in NACL 0.9% 100 ML IV SCH ×3 (04:06→20:03)
[2016-07-28] MEDS: BLOOD GLUCOSE MONITORING 1 DEV DEV FS SCH ×4 (06:28→20:43)
--- NOTE | 2016-07-28 06:44 | NUR ---
BED SCALE SCREEN STUCK ON KASEY, MSW AWARE
--- NOTE | 2016-07-28 06:45 | NUR ---
NO NEURO CHANGES SBP LESS THAN 160 (PRN HYDRALAZINE FOR 160+) NO DISTRESS NO SOB FREQUENT SUCTIONING TURNED, HAD BM OLIVARES DRAINING, LOW OUTPUT BASELINE
--- NOTE | 2016-07-28 07:35 | NUR ---
RECEIVED PATIENT ON BED.INITIAL ASSESSMENT DONE TO PATIENT.TRACHE TO VENT WITH VENT SETTING FOLLOWS.FIO2=30 PERCENT,UJ=557,AC=10.PEEP=5.PT IS NOT IN ANY CARDIORESPIRATORY DISTRESS.LEFT HAND 24 GAUGE PIV WITH NS AT 50 ML/H.NO SIGNS OF INFILTRATION .SB ON THE MONITOR.OLIVARES TO GRAVITY.GTUBE WITH DIABETISOURCE AT 40 ML/H.NO RESIDUAL NOTED.RIGHT SUBCLAVIAN TRIPLE LUMEN CENTRAL CATHETER INTACT.NO BLOOD RETURN NOTED.DR XAVIER MADE AWARE.
--- NOTE | 2016-07-28 07:35 | NUR ---
RECEIVED PT ON CARESCAPE ON A/C 10 VT 600 PEEP 5 FIO2 30 ALARMS ARE ON AND FUNCTIONAL BMV HOB PTS TRACH PORTEX 8 IS SECURE BS RHONCI I\L LAVAGE AND SX MOD YELLOW [\L HHN GIVEN WITH 3 MG DUONEB VENT PLUGGED INTO RED OUTLET
--- NOTE | 2016-07-28 07:45 | NUR ---
tube feeding goal 70. was increased to 40ml/hr
[2016-07-28] MEDS ORDERED: LEVOTHYROXINE 200 MCG VIAL IV SCH (09:00)
[2016-07-28] MEDS: FERROUS SULFATE 300 MG/5 ML UDC GT SCH ×2 (09:04→20:01)
[2016-07-28] MEDS: PHENYTOIN 100 MG/4 ML UDC GT SCH ×2 (09:04→20:01)
[2016-07-28] MEDS: SACCHAROMYCES 250 MG CAP GT SCH ×2 (09:04→20:02)
[2016-07-28] MEDS: LANSOPRAZOLE 30 MG CAPDR GT SCH (09:04)
[2016-07-28] MEDS: LEVOTHYROXINE 0.025 MG TAB GT SCH (09:04)
[2016-07-28] MEDS: MULTIVITAMIN/MINERALS 15 ML UDBTL PO SCH (09:05)
[2016-07-28] MEDS: TOBRAMYCIN 500 MG in DEXTROSE 5% 100 ML IV SCH (09:07)
[2016-07-28] MEDS: ANTIFUNGAL CLEAR OINTMENT TP SCH (09:09)
[2016-07-28] MEDS: THERAHONEY GEL 42.5 GM TP SCH (09:10)
--- NOTE | 2016-07-28 09:19 | NUR ---
VENT CHECK BS RHONCI I\L LAVAGE AND SX MOD YELLOW CHANGE GAUZE
[2016-07-28] MEDS ORDERED: POTASSIUM CHLORIDE 20% 40 MEQ/15 ML UDC GT SCH (11:00)
--- NOTE | 2016-07-28 11:28 | NUR ---
VENT CHECK BS RHONCI I\L LAVAGE AND SX LG YELLOW HHN GIVEN I\L WITH 3 MG DUONEB
--- NOTE | 2016-07-28 13:12 | NUR ---
VENT CHECK BS RHONCI I\L LAVAGE AND SX MOD YELLOW ORALLY SX COPIOUS YELLOW CHANGE INNER CANNULA PORTEX 8 TRACH TIE GAUZE WITHOUT INCIDENT
[2016-07-28] MEDS: LIDOCAINE 1% 500 MG/50 ML VIAL INJ SCH ×3 (13:38→19:36)
--- NOTE | 2016-07-28 15:20 | NUR ---
DR XAVIER REMOVED RIGHT SUBCLAVIAN TRIPLE LUMEN CATHETER.NO BLEEDING NOTED.
[2016-07-28] MEDS: NACL 0.9% 1,000 ML IV SCH (18:00)
--- NOTE | 2016-07-28 19:21 | NUR ---
PT RECEIVED FROM [facility] ON NOTED VENT SETTINGS. PT AWAKE, HAS A #[address] BS COARSE DIMINISHED BILATERALLY, HHN TX GIVEN INLINE. PT LAVAGED AND SUCTIONED SMALL AMT THIN CREAMY SECRETIONS. NO ADVERSE EFFECTS NOTED. VENT ALARMS ON AND AUDIBLE. VENT PLUGGED INTO RED ELECTRICAL OUTLET. AMBU BAG ON SIDE OF VENT.
--- NOTE | 2016-07-28 19:21 | NUR ---
RECEIVED REPORT FROM DAY NURSE SWETA RN AT PATIENT BEDSIDE FOR TRANSFER OF CARE. PT OPENS EYES SPONTANEOUSLY PT IS TRACH TO VENT WITH SETTINGS AT FIO2 30%, TV 600, AC 10, PEEP 5 WITH NOS/S OF RESP DISTRESS AT THIS TIME. AFTERNOON NANNY SHOWS NSR AT THIS TIME AT A RATE OF 67. PT HAS LEFT HAND #24G IV SITE RUNNING NS AT 50ML/HR. GOOD BLOOD RETURN NOTED. PT HAS G-TUBE FEEDING OF DIABETISOURCE RUNNING AT 50ML/HR AT THIS TIME WITH NO GASTRIC RESIDUAL NOTED. PT HAS SACRAL WOUND NOTED. PT HAS OLIVARES CATHETER IN PLACE. SCDS IN PLACE. BED IN LOW POSITION. WILL CONTINUE TO CLOSELY MONITOR.
[2016-07-28] MEDS: MONTELUKAST SODIUM 10 MG TAB GT SCH (20:02)
--- NOTE | 2016-07-28 21:25 | NUR ---
VENT CHECKED. PT QUIET. NO SUCTIONING NEEDED AT THIS TIME.
--- NOTE | 2016-07-28 22:15 | NUR ---
PT TURNED REPOSITIONED. PT SUCTIONED. NO SOB NOTED. TUBE FEEDING BAG CHANGED AND RATE INCREASED TO 65ML/HR AT THIS TIME. WILL CONTINUE TO CLOSELY MONITOR.
--- NOTE | 2016-07-28 23:36 | NUR ---
VENT CHECKED. PT ASLEEP, HHN TX GIVEN VIA INLINE. PT BREATH SOUNDS COARSE DIMINISHED. PT SUCTIONED SMALL AMT THIN CREAM COLORED SECRETIONS. NO ADVERSE EFFECTS NOTED.
[2016-07-29] VITALS (24 sets, daily range): BP systolic 122–151; BP diastolic 68–101
[2016-07-29] MEDS: HYDROCORTISONE NA SUCC 100 MG/2 ML VIAL IV SCH ×5 (00:34→23:53)
--- NOTE | 2016-07-29 00:35 | NUR ---
PT RESTING IN BED. MEDS GIVEN. TOLERATING WELL. NO SOB NOTED. WILL CONTINUE TO CLOSELY MONITOR.
[2016-07-29] MEDS: levETIRAcetam 1,000 MG in NACL 0.9% 100 ML IV SCH ×3 (00:36→16:39)
--- NOTE | 2016-07-29 01:28 | NUR ---
VENT CHECKED. PT ASLEEP. NO DISTRESS/SOB NOTED. ORALLY SUCTIONED FOR MOD AMT WHITE/CLEAR SECRETIONS. NO ADVERSE EFFECTS NOTED.
--- NOTE | 2016-07-29 02:45 | NUR ---
PT RESTING IN BED. PT SUCTIONED. SAFETY PRECAUTIONS STILL MAINTAINED. WILL CONTINUE TO MONITOR.
--- NOTE | 2016-07-29 03:44 | NUR ---
VENT CHECKED. PT AWAKE, BREATH SOUNDS COARSE DIMINISHED, HHN TX GIVEN INLINE. HME AND TRACH GAUZE CHANGED. NO ADVERSE EFFECTS NOTED.
[2016-07-29] MEDS: ALBUTEROL SULFATE/IPRATROPIU 3 ML SOL IH SCH ×6 (03:47→23:06)
[2016-07-29] MEDS: NACL 0.9% 1,000 ML IV SCH (04:40)
[2016-07-29] MEDS: MEROPENEM 1,000 MG in NACL 0.9% 100 ML IV SCH ×3 (04:41→21:01)
--- NOTE | 2016-07-29 05:10 | NUR ---
MORNING CARE RENDERED. PT BATHED, LINEN CHANGED, HUNG NEW BAG OF NS, INCREASED G-TUBE FEEDING RATE TO 65ML/HR. NO SOB NOTED. WILL CONTINUE TO MONITOR.
[2016-07-29] MEDS ORDERED: HYDROCORTISONE NA SUCC 100 MG/2 ML VIAL ONE (06:36)
[2016-07-29] MEDS: BLOOD GLUCOSE MONITORING 1 DEV DEV FS SCH ×4 (06:53→21:37)
--- NOTE | 2016-07-29 06:57 | NUR ---
REC'D PT ON CARESCAPE VENT SETTINGS AC10VT 600 PEEP 5 FIO2 30% ALARMS ON AND FUNCTIONING PROPERLY AMBU BAG IS AT SIDE OF VENT AND VENT IS PLUGGED INTO RED OUTLET, I\L GIVEN WITH DUONEB 3ML WITH NO ADVERSE REACTION POST TX B\S ARE COARSE BILATERALLY, SXN PT SMALL AMT OF CREAM COLOR SECRETIONS, PT IS TRACH WITH PORTEX 8 AND SKIN INTEGRITY IS INTACT-
--- NOTE | 2016-07-29 07:13 | NUR ---
ENDORSED PLAN OF CARE TO DAY NURSE ADAL STANLEY FOR CONTINUATION OF CARE. PT STABLE AT THIS TIME. NO SIGNS OF DISCOMFORT OR DISTRESS AT THIS TIME.
--- NOTE | 2016-07-29 07:40 | NUR ---
RECEIVED BEDSIDE REPORT FROM LEO GALEAS. PT OPENS EYES SPONTANEOUSLY BUT DOES NOT FOLLOW COMMANDS. BEDSIDE MONITOR SHOWS SB. PT TRACH TO VENTING SETTING AT FIO2=30%,AC 10,VT 600, PEEP 5. NO S/S OF RESPIRATORY DISTRESS NOTED. G-TUBE FEEDING IN PLACE RUNNING DIABETISOURCE AC AT 65ML/HR, NO RESIDUAL AT THIS TIME. ABDOMEN SOFT WITH ACTIVE BOWEL SOUND, OLIVARES CATH IN PLACE WITH SMALL AMOUNT OF CLEAR YELLOW URINE. SCDS IN PLACE, PT UNABLE TO MOVE ALL HIS EXTREMITIES. HOB ELEVATED 30 DEGREES. ASPIRATION/FALL/SEIZURE PRECAUTION MEASURES IN PLACE. ORAL CARE GIVEN, NO FEVER AT THIS TIME.REPOSITIONED PT, PT IS NON VERBAL, REINFORCEMENT NEEDED. WILL CONTINUE TO CLOSELY MONITOR PT.
[2016-07-29] MEDS: LEVOTHYROXINE 0.025 MG TAB GT SCH (07:41)
[2016-07-29] MEDS ORDERED: MAG SULF 2000 MG/WATER PREMIX 50 ML IV SCH (08:30)
--- NOTE | 2016-07-29 09:16 | NUR ---
VENT CHECK, NO SXN REQUIRED AT THIS TIME, B\S ARE COARSE AND AIRWAY IS PATENT
[2016-07-29] MEDS: PHENYTOIN 100 MG/4 ML UDC GT SCH ×2 (09:36→20:59)
[2016-07-29] MEDS: MULTIVITAMIN/MINERALS 15 ML UDBTL PO SCH (09:36)
[2016-07-29] MEDS: FERROUS SULFATE 300 MG/5 ML UDC GT SCH ×2 (09:36→21:00)
[2016-07-29] MEDS: LANSOPRAZOLE 30 MG CAPDR GT SCH (09:37)
[2016-07-29] MEDS: THERAHONEY GEL 42.5 GM TP SCH (09:37)
[2016-07-29] MEDS: ANTIFUNGAL CLEAR OINTMENT TP SCH (09:37)
[2016-07-29] MEDS: TOBRAMYCIN 500 MG in DEXTROSE 5% 100 ML IV SCH (10:00)
--- NOTE | 2016-07-29 10:00 | NUR ---
PT OPENS EYES SPONTANEOUSLY, NO RESPONSIVE TO NAME STIMULI. REPOSITIONED PT, SUCTIONED PT WITH SMALL AMOUNT OF WHITE SECRETION. WILL CONTINUE TO MONITOR.
[2016-07-29] MEDS: SACCHAROMYCES 250 MG CAP GT SCH ×2 (10:18→21:00)
--- NOTE | 2016-07-29 10:56 | NUR ---
VENT CHECK, I\L TX GIVEN WITH DUONEB 3ML WITH NO ADVERSE REACTION POST TX, B\S ARE COARSE AND SXN PT SMALL AMT OF CREAM COLOR SECRETIONS, PT IS RESTING
--- NOTE | 2016-07-29 12:05 | NUR ---
PT IS UNRESPONSIVE TO NAME STIMULI. REPOSITIONED PT AND SUCTIONED PT WITH MODERATE AMOUNT OF CLEAR SECRETION. ORAL CARE GIVEN. NO S/S OF RESPIRATORY DISTRESS NOTED. WILL CONTINUE TO MONITOR.
--- NOTE | 2016-07-29 13:11 | NUR ---
VENT CHECK, NO SXN REQURIED AT THIS TIME, AIRWAY IS PATENT AND PT IS SLEEPING WITH NO SIGNS OF DISTRESS
--- NOTE | 2016-07-29 14:10 | NUR ---
PT RESTING IN BED, NO SOB. O2 SAT 100%. REPOSITIONED PT, OFF LOAD PRESSURE AREA.
--- NOTE | 2016-07-29 14:51 | NUR ---
VENT CHECK, SXN PT SMALL AMT OF CREAM COLOR SECRETIONS, B\S ARE COARSE AND I\L TX GIVEN WITH DUONEB 3ML WITH NO ADVERSE REACTION POST TX TRACH CARE DONE: CHANGED TRACH TIE AND GAUZE AND INNER CANNULA
--- NOTE | 2016-07-29 15:40 | NUR ---
DR. TOLEDO PRESENT AT PT'S BEDSIDE TO ASSESS PT, UPDATED PT'S CONDITION. NO NEW ORDER RECEIVED THIS TIME.
--- NOTE | 2016-07-29 16:10 | NUR ---
PT RESTING IN BED, NO S/S OF RESPIRATORY DISTRESS NOTED. ORAL CARE GIVEN. REPOSITIONED PT.SUCTIONED PT WITH MODERATE WHITE SECRETION. WILL CONTINUE TO MONITOR.
--- NOTE | 2016-07-29 16:37 | NUR ---
VENT CHECK, NO SXN REQURIED AT THIS TIME, AIRWAY IS PATENT AND ADAL STANLEY AT BEDSIDE
--- NOTE | 2016-07-29 18:20 | NUR ---
PT OPEN EYES SPONTANEOUSLY, DOES NOT FOLLOW COMMANDS. REPOSITIONED PT WITH CHARGE NURSE. CLEANED PT . SUCTIONED PT. NO SOB AT THIS TIME.
--- NOTE | 2016-07-29 19:05 | NUR ---
RECEIVED REPORT FROM ADAL STANLEY AT PT BEDSIDE. PT OPENS EYES SPONTANEOUSLY BUT DOES NOT FOLLOW COMMANDS AND IS NON VERBAL. PT IS TRACH TO VENT WITH CURRENT SETTINGS AT FIO2 30%, TV 600, AC 10, PEEP 5 WITH NO S/S OF ACUTE RESPIRATORY DISTRESS NOTED AT THIS TIME. DIRECTOR SUPPLY CHAIN SHOWS SR AT THIS TIME AT A RATE OF 65. PT HAS G-TUBE FEEDING IN PLACE RUNNING DIABETISOURCE AC AT 65ML/HR, WITH NO GASTRIC RESIDUAL AT THIS TIME. SKIN NON-INTACT WITH SACRAL WOUND NOTED. SEE WOUND ASSESSMENT. PT HAS OLIVARES CATHETER IN PLACE WITH SMALL AMOUNT OF CLEAR YELLOW URINE DRAINING VIA GRAVITY. SCDS IN PLACE. HOB ELEVATED 30 DEGREES. ALL PRECAUTION MEASURES IN PLACE. WILL MONITOR CLOSELY.
--- NOTE | 2016-07-29 19:05 | NUR ---
ENDORSED PT TO PM ADAL BAILYE FOR THE CONTINUITY OF CARE.
[2016-07-29] MEDS: MONTELUKAST SODIUM 10 MG TAB GT SCH (21:00)
--- NOTE | 2016-07-29 21:26 | NUR ---
DR MAYFIELD HERE ON THE UNIT TO EVALUATE PT AT BEDSIDE.
[2016-07-30] VITALS (24 sets, daily range): BP systolic 110–153; BP diastolic 55–96
--- NOTE | 2016-07-30 00:11 | NUR ---
0000 CHANGED PATIENTS VENTILATOR. VENT CONTINUES TO ALARM CIRCUIT LEAK WHEN NO LEAK IS DETECTED.CHECKED THE CIRCUIT. CHECKED PTS CUFF. CHECKED TRACH SITE.CHANGED FILTER ON VENT. SO CHANGED OUT THE VENT FOR NEW ONE. NO ALARMS AT THIS TIME ON THE NEW VENT
--- NOTE | 2016-07-30 00:13 | NUR ---
PT TURNED, REPOSITIONED. VAP ORAL CARE GIVEN. NO SOB NOTED AT THIS TIME. WILL CONTINUE TO MONITOR.
[2016-07-30] MEDS: levETIRAcetam 1,000 MG in NACL 0.9% 100 ML IV SCH ×3 (01:24→17:23)
[2016-07-30] MEDS ORDERED: HYDROCORTISONE NA SUCC 100 MG/2 ML VIAL ONE (02:21)
[2016-07-30] MEDS: ALBUTEROL SULFATE/IPRATROPIU 3 ML SOL IH SCH ×6 (03:12→23:03)
--- NOTE | 2016-07-30 03:58 | NUR ---
MORNING CARE RENDERED, PT CLEANED, LINEN CHANGED. VAP ORAL KIT PROVIDED. NO S/S OF RESPIRATORY DISTRESS NOTED AT THIS TIME. PT TURNED AND REPOSITIONED.
--- NOTE | 2016-07-30 04:40 | NUR ---
PT LEFT HAND #24 IV SITE DISLODGED. NEW IV STARED IN LEFT AC #22. GOOD BLOOD RETURN NOTED. WILL CONTINUE TO MONITOR.
[2016-07-30] MEDS: MEROPENEM 1,000 MG in NACL 0.9% 100 ML IV SCH ×3 (04:41→20:57)
[2016-07-30] MEDS: HYDROCORTISONE NA SUCC 100 MG/2 ML VIAL IV SCH ×3 (05:47→18:36)
--- NOTE | 2016-07-30 06:20 | NUR ---
PT RESTING IN BED. NO SIGNS OF DISCOMFORT. SAFETY PRECAUTIONS STILL MAINTAINED
[2016-07-30] MEDS: BLOOD GLUCOSE MONITORING 1 DEV DEV FS SCH ×4 (06:44→21:01)
--- NOTE | 2016-07-30 06:59 | NUR ---
RECEIVED PT ON CARESCAPE ON A/C 10 VT600 PEEP 5 FIO2 30 ALARMS ARE ON AND FUNCTIONAL BMV HOB PTS TRACH PORTEX 8 IS SECURE PT IN HF QUIET BS RHONCI I\L LAVAGE AND SX MOD WHITE HHN GIVEN I\L WITH 3 MG DUONEB
--- NOTE | 2016-07-30 07:12 | NUR ---
ENDORSED PLAN OF CARE TO ADAL HAYWOOD AT PATIENT BEDSIDE FOR CONTINUATION OF CARE. PT STABLE AT THIS TIME.
--- NOTE | 2016-07-30 07:30 | NUR ---
RECEIVED REPORT FROM ADAL BAILEY. PT SEEN AT BEDSIDE. PT OPENS EYES SPONTANEOUSLY, BUT CANNOT FOLLOW COMMANDS; NONVERBAL. ON TRACH TO VENT, SETTINGS FIO2 30, RR 10, TV 600, PEEP 5. ON INFORMATION RESOURCES DIRECTOR RUNNING SINUS RHYTHM AT THIS TIME. LEFT AC 22G IV RUNNING IVF AT THIS TIME. IV IS PATENT AND INTACT WITH BLOOD RETURN VISIBLE. PT HAS HX OF CVA, X4 EXTREMITIES CONTRACTED. GT IN PLACE RUNNING TUBE FEEDING; RESIDUAL 5. OLIVARES CATHETER IN PLACE DRAINING CLOUDY, YELLOW URINE. SACRAL WOUND COVERED IN DRESSING. PT TURNED AND REPOSITIONED FOR COMFORT, ORAL CARE GIVEN WITH VAP KIT, SAFETY MEASURES CHECK, CALL LIGHT LEFT AT BEDSIDE. WILL CONTINUE TO MONITOR.
--- NOTE | 2016-07-30 08:00 | NUR ---
DR. APODACA AND RESIDENTS AT BEDSIDE. UPDATED MD ON PATIENT CONDITION. ALSO NOTIFIED MD THAT PATIENT'S MG IS 1.6. MD AWARE.
[2016-07-30] MEDS: NACL 0.9% 1,000 ML IV SCH (08:02)
--- NOTE | 2016-07-30 08:11 | NUR ---
SCDS IN PLACE, HOB AT 30 DEGREES.
[2016-07-30] MEDS: MULTIVITAMIN/MINERALS 15 ML UDBTL PO SCH (08:31)
[2016-07-30] MEDS: PHENYTOIN 100 MG/4 ML UDC GT SCH ×2 (08:31→21:24)
[2016-07-30] MEDS: LEVOTHYROXINE 0.025 MG TAB GT SCH (08:31)
[2016-07-30] MEDS: SACCHAROMYCES 250 MG CAP GT SCH ×2 (08:31→21:25)
[2016-07-30] MEDS: FERROUS SULFATE 300 MG/5 ML UDC GT SCH ×2 (08:31→21:25)
[2016-07-30] MEDS: LANSOPRAZOLE 30 MG CAPDR GT SCH (08:32)
[2016-07-30] MEDS: THERAHONEY GEL 42.5 GM TP SCH (08:32)
--- NOTE | 2016-07-30 08:45 | NUR ---
VENT CHECK BS RHONCI I\L LAVAGE AND SX SM WHITE SECRETIONS
[2016-07-30] MEDS ORDERED: ALBUTEROL SULFATE/IPRATROPIU 3 ML SOL IH PRN (08:46)
[2016-07-30] MEDS: TOBRAMYCIN 500 MG in DEXTROSE 5% 100 ML IV SCH (09:23)
[2016-07-30] MEDS ORDERED: MAGNESIUM OXIDE 400 MG TAB GT SCH ×2 (10:21→21:00)
--- NOTE | 2016-07-30 11:28 | NUR ---
WOUND CARE NOTES: SEEN PATIENT FOR FOLLOW UP S/P DEBRIDEMENT OF COCCYX ST III. PLEASE REFER TO WOUND ASSESSMENT FLOWSHEET FOR UPDATED ENTRY. WILL CONTINUE CURRENT PLAN OF CARE. WILL CONTINUE TO FOLLOW UP PATIENT WHILE IN HOUSE.
--- NOTE | 2016-07-30 12:00 | NUR ---
PT TURNED AND REPOSITIONED FOR COMFORT. GT RESIDUAL 0 AT THIS TIME. NO BM NOTED. WILL CONTINUE TO MONITOR.
--- NOTE | 2016-07-30 12:35 | NUR ---
SOLTERENCEORTEF NON-ADMIN FOR 07/30/16 0221: TIME IS FOR SALES RECRUITING COORDINATOR.
--- NOTE | 2016-07-30 13:18 | NUR ---
VENT CHECK BS RHONCI I\L LAVAGE AND SX SM WHITE
--- NOTE | 2016-07-30 14:26 | NUR ---
07/30/16 RD FOLLOW UP COMPLETED PLEASE REFER TO NUTRITION ASSESSMENT UNDER CARE ACTIVITY FOR ESTIMATED NUTRITIONAL NEEDS. RD RECOMMENDATIONS: 1. CONTINUE TUBE FEEDING DIABETISOURCE AT GOAL OF 65 ML/HR WITH PROSOURCE BID VIA GTUBE -- PROVIDES 1710 ML TOTAL VOLUME, 2136 KCAL, 131 GM PROTEIN, 1374 ML FREE WATER AND MEETS 98% OF PT ESTIMATED KCAL NEEDS AND 100% OF PT ESTIMATED PROTEIN NEEDS 2. RD WILL F/U 2-3 DAYS; HIGH RISK. HYACINTH KHAN RD
--- NOTE | 2016-07-30 14:27 | NUR ---
PT TURNED AND REPOSITIONED FOR COMFORT. NO BM NOTED. WILL CONTINUE TO MONITOR.
--- NOTE | 2016-07-30 14:51 | NUR ---
VENT CHECK BS RHONCI I\L LAVAGE AND SX MOD WHITE CAHNGE INNER CANNULA PORTEX 8 TRACH TIE GAUZE WITHOUT INCIDENT HHN GIVEN I\L WITH 3 MG DUONEB
--- NOTE | 2016-07-30 15:03 | NUR ---
DR. BAKER AT BEDSIDE ASSESSING PATIENT. UPDATED MD ON PATIENT CONDITION. WILL FOLLOW UP ON ANY ORDERS.
--- NOTE | 2016-07-30 16:00 | NUR ---
GT RESIDUAL 0 AT THIS TIME. PT TURNED AND REPOSITIONED FOR COMFORT. WILL CONTINUE TO MONITOR.
--- NOTE | 2016-07-30 17:00 | NUR ---
BATH GIVEN, LINEN CHANGED. PT TURNED AND REPOSITIONED. NO BM NOTED. WILL CONTINUE TO MONITOR.
--- NOTE | 2016-07-30 17:20 | NUR ---
VENT CHECK BS RHONCI I\L LAVAGE AND SX MOD WHITE SECRETIONS
--- NOTE | 2016-07-30 18:00 | NUR ---
PT SUCTIONED. TURNED AND REPOSITIONED FOR COMFORT. WILL CONTINUE TO MONITOR.
--- NOTE | 2016-07-30 19:10 | NUR ---
RECEIVED REPORT FROM ADAL HAYWOOD. PATIENT IS NONVERBAL. EYES OPEN SPONTANEOUSLY BUT DOES NOT FOLLOW VERBAL COMMANDS. TRACH TO VENT WITH SETTINGS OF FIO2 OF 30%, TV 600, A/C 10, PEEP 5. BREATHING EVEN AND UNLABORED, DIMINISHED LUNG SOUNDS. SR ON MONITOR. PERIPHERAL IV 22GA TO LEFT AC, RUNNING NS AT 50 ML/HR. ACTIVE BOWEL SOUNDS. GT TO TF, WITH DIABETISOURCE AC AT 65ML/HR AND FREE WATER 100ML Q6HR, RESIDUAL 15ML. ON OLIVARES CATHETER, DRAINING WELL TO GRAVITY WITH CLEAR YELLOW URINE. BUE AND BLE ARE CONTRACTED. SCD'S IN PLACE. AFEBRILE, SKIN IS WARM AND DRY TO TOUCH, SACRAL PRESSURE WOUND PRESENT (SEE WOUND ASSESSMENT). BUE AND BLE +2 PITTING EDEMA NOTED. SAFETY PRECAUTION, ASPIRATION PRECAUTION, AND SEIZURE PRECAUTION IN PLACE, VSS, WILL CONTINUE TO MONITOR.
--- NOTE | 2016-07-30 19:12 | NUR ---
REPORT GIVEN TO ADAL HOLLOWAY.
--- NOTE | 2016-07-30 19:21 | NUR ---
RCV'D PT ON CARESCAPE R860 #1353. PT IS TRACHED WITH PORTEX 8. TRACH IS IN PLACE AND SECURED. SKIN IS INTACT. VENT SETTINGS AC 500, 10,5, 30%. VENT IS PLUGGED INTO RED OUTLET. ALARMS ARE AUDIBLE. AMBU BAG AT BEDSIDE. HHN GIVEN SXND SMALL AMT OF WHITE CREAMY THIN SECRETIONS. NO SOB/DISTRESS NOTED. PT IS AWAKE AND QUIT. SAT 100% HR 69. WILL CONTINUE TO MONITOR.
--- NOTE | 2016-07-30 20:00 | NUR ---
NO CHANGE OF CONDITION AT THIS TIME. POSITION CHANGED FOR OFF LOAD PRESSURE, ORAL CARE PROVIDED.
--- NOTE | 2016-07-30 21:00 | NUR ---
SCHEDULED MEDICATION GIVEN, PATIENT TOLERATED WELL, NO S/S OF ADVERSE REACTION.
--- NOTE | 2016-07-30 21:20 | NUR ---
DR. MAYFIELD CAME TO SEE PATIENT, NO NEW ORDERS AT THIS TIME.
[2016-07-30] MEDS: MONTELUKAST SODIUM 10 MG TAB GT SCH (21:24)
--- NOTE | 2016-07-30 22:00 | NUR ---
NO CHANGE OF CONDITION AT THIS TIME, POSITION CHANGED FOR OFF LOAD PRESSURE
--- NOTE | 2016-07-30 23:10 | NUR ---
TX GIVEN. BS CLEAR. PT IS AWAKE QUIET AND RESTING COMFORTABLY . NO SOB OR DISTRESS NOTES. SXND SMALL AMT OF WHITE SECRETIONS. WILL CONTINUE TO MONITOR.
[2016-07-31] VITALS (18 sets, daily range): BP systolic 116–161; BP diastolic 62–79
--- NOTE | 2016-07-31 | NUR ---
NO CHANGE OF CONDITION AT THIS TIME, ORAL CARE PROVIDED, POSITION CHANGED FOR OFF LOAD PRESSURE.
[2016-07-31] MEDS: HYDROCORTISONE NA SUCC 100 MG/2 ML VIAL IV SCH ×3 (00:02→11:42)
[2016-07-31] MEDS: levETIRAcetam 1,000 MG in NACL 0.9% 100 ML IV SCH ×3 (01:00→17:00)
--- NOTE | 2016-07-31 01:08 | NUR ---
VENT CHECK DONE. PT IS ASLEEP. NO SOB OR DISTRESS NOTED. HR 55 SAT 100%. BS CLEAR. WILL CONTINUE TO MONITOR.
--- NOTE | 2016-07-31 02:00 | NUR ---
NO CHANGE OF CONDITION AT THIS TIME, POSITION CHANGED FOR OFF LOAD PRESSURE.
[2016-07-31] MEDS: ALBUTEROL SULFATE/IPRATROPIU 3 ML SOL IH SCH ×4 (03:12→14:57)
--- NOTE | 2016-07-31 03:29 | NUR ---
TX GIVEN. VENT CHECK DONE. NOTICED PT HR IS LOW ACCREDITATION MANAGER ENMA AWARE. PT TOLERATED TX WELL. SXND SMALL AMOUNT OF WHITE THIN SECRETIONS. TRACH CARE DONE. CHANGED GAUZE, HME, CLOSED SXN CATH,AND TRACH TIE WITHOUT INCIDENT. PT SAT IS 100%. WILL CONTINUE TO MONITOR.
--- NOTE | 2016-07-31 04:00 | NUR ---
AM CARE PROVIDED, [place] CARE PROVIDED, ORAL CARE PROVIDED. POSITION CHANGED FOR OFF LOAD PRESSURE. VSS.
[2016-07-31] MEDS: NACL 0.9% 1,000 ML IV SCH (05:26)
[2016-07-31] MEDS: MEROPENEM 1,000 MG in NACL 0.9% 100 ML IV SCH ×2 (05:26→13:28)
--- NOTE | 2016-07-31 06:00 | NUR ---
NO CHANGE OF CONDITION AT THIS TIME, POSITION CHANGED FOR OFF LOAD PRESSURE.
[2016-07-31] MEDS ORDERED: HYDROCORTISONE NA SUCC 100 MG/2 ML VIAL ONE (06:16)
[2016-07-31] MEDS: BLOOD GLUCOSE MONITORING 1 DEV DEV FS SCH ×3 (06:38→17:03)
--- NOTE | 2016-07-31 06:38 | NUR ---
REC'D PT ON CARESCAPE VENT SETTINGS AC10 VT 600 PEEP 5 FIO2 30% ALARMS ON AND FUNCTIONING PROPERLY, AMBU BAG AT SIDE OF VENTILATOR AND VENTILATOR IS PLUGGED INTO RED OUTLET, I\L TX GIVEN WITH DUONEB 3ML WITH NO ADVERSE REACTION POST TX, B\S ARE COARSE BILATERALLY, SXN PT MODERATE AMT OF CREAM COLOR SECRETIONS, PT IS TRACH WITH PORTEX #8 AND SKIN INTEGRITY IS INTACT PT IS RESTING WITH NO SIGNS OF DISTRESS NOTED AT THIS TIME
--- NOTE | 2016-07-31 07:04 | NUR ---
REPORT GIVEN TO ADAL STANLEY AT BEDSIDE, PATIENT IS IN STABLE CONDITION, VSS.
--- NOTE | 2016-07-31 07:40 | NUR ---
RECEIVED BEDSIDE REPORT FROM JEWEL GALEAS. PT OPENS EYES SPONTANEOUSLY BUT DOES NOT FOLLOW COMMANDS. NON VERBAL.BEDSIDE MONITOR SHOWS SB. PT TRACH TO VENTING SETTING AT FIO2=30%,AC 10,VT 500, PEEP 5. NO S/S OF RESPIRATORY DISTRESS NOTED. G-TUBE FEEDING IN PLACE RUNNING DIABETISOURCE AC AT 65ML/HR, 50 ML RESIDUAL AT THIS TIME, RETURNED IT BACK. ABDOMEN SOFT WITH HYPOACTIVE BOWEL SOUND, OLIVARES CATH IN PLACE WITH SMALL AMOUNT OF CLEAR YELLOW URINE. LEFT AC #22 IV RUNNING IVF AT THIS TIME. SITE INTACT AND PATENT. SCDS IN PLACE. ALL EXTREMITIES CONTRACTED. SKIN NON INTACT ( SEE WOUND ASSESSMENT). HOB ELEVATED 30 DEGREES. ASPIRATION/FALL/SEIZURE PRECAUTION MEASURES IN PLACE. ORAL CARE GIVEN, NO FEVER AT THIS TIME.REPOSITIONED PT. WILL CONTINUE TO CLOSELY MONITOR PT.
[2016-07-31] MEDS: LEVOTHYROXINE 0.025 MG TAB GT SCH (08:25)
[2016-07-31] MEDS: LANSOPRAZOLE 30 MG CAPDR GT SCH (08:25)
[2016-07-31] MEDS: PHENYTOIN 100 MG/4 ML UDC GT SCH (08:26)
[2016-07-31] MEDS: SACCHAROMYCES 250 MG CAP GT SCH (08:26)
[2016-07-31] MEDS: FERROUS SULFATE 300 MG/5 ML UDC GT SCH (08:26)
[2016-07-31] MEDS: MULTIVITAMIN/MINERALS 15 ML UDBTL PO SCH (08:26)
[2016-07-31] MEDS: THERAHONEY GEL 42.5 GM TP SCH (08:27)
--- NOTE | 2016-07-31 09:00 | NUR ---
CALLED DR. XAVIER. NOTIFIED PT LAB REPORT MG LEVEL 1.8. PER DR. XAVIER " DO NOT GIVE MAG-OX".
--- NOTE | 2016-07-31 09:14 | NUR ---
VENT CHECK, NO SXN REQUIRED AIRWAY IS PATENT AND PT IS RESTING WITH NO SIGNS OF DISTRESS NOTED AT THIS TIME
[2016-07-31] MEDS: TOBRAMYCIN 500 MG in DEXTROSE 5% 100 ML IV SCH (10:03)
--- NOTE | 2016-07-31 10:05 | NUR ---
PT OPENS EYES, DOES NOT FOLLOW COMMANDS. REPOSITIONED PT TO MAKE PT COMFORTABLE . NO S/S OF RESPIRATORY DISTRESS NOTED. WILL CONTINUE TO MONITOR.
--- NOTE | 2016-07-31 10:40 | NUR ---
VENT CHECK, SXN PT SMALL AMT OF CREAM COLOR SECRETIONS, B\S ARE COARSE I\L TX GIVEN WITH DUONEB 3ML WITH NO ADVERSE REACTION POST TX
--- NOTE | 2016-07-31 11:50 | NUR ---
PT RESTING IN BED, CAN NOT MAKE NEEDS KNOWN. BEDSIDE MONITOR SHOWS SB, NO SOB. REPOSITIONED PT, WILL CONTINUE TO MONITOR.
--- NOTE | 2016-07-31 12:54 | NUR ---
SS NOTE: [place] [phone] PT CAN GO TO ROOM [address] GAYLA SOSA. RESEARCH NURSEADAL SCHWARTZ.
--- NOTE | 2016-07-31 13:00 | NUR ---
RESIDENT WAS NOTIFIED OF THE PATIENT GOT ACCEPTED TO [facility] TODAY AND WE NEED THE ODER TO DISCHARGE THE PATIENT.
--- NOTE | 2016-07-31 13:01 | NUR ---
VENT CHECK, NO SXN REQUIRED AT THIS TIME, AIRWAY IS PATENT AND PT IS RESTING
--- NOTE | 2016-07-31 14:15 | NUR ---
PT OPENS EYES SPONTANEOUSLY. ORAL CARE GIVEN, SUCTIONED PT WITH SMALL AMOUNT OF WHITE SECRETION , NO SOB. REPOSITIONED PT,WILL CONTINUE TO MONITOR.
[2016-07-31] MEDS ORDERED: KEPPRA750 MG GT (14:50)
[2016-07-31] MEDS ORDERED: PHENYTOIN100 MG/4 M GT (14:50)
--- NOTE | 2016-07-31 14:57 | NUR ---
VENT CHECK, I\L TX GIVEN WITH DUONEB 3ML WITH NO ADVERSE REACTION POST TX B\S ARE COARSE AND SXN PT MODERATE AMT TO CREAM COLOR SECRETIONS. PT IS RESTING NOW WITH NO SIGNS OF DISTRESS NOTED AT THIS TIME
[2016-07-31] MEDS ORDERED: MEROPENEM-1 GM/50 ML IV (15:00)
[2016-07-31] MEDS ORDERED: [UNRECOGNIZED DRUG - OTHER] IV (15:04)
[2016-07-31] MEDS ORDERED: FLORASTOR250 MG PO (15:05)
--- NOTE | 2016-07-31 15:30 | NUR ---
REPORT GIVEN TO JACQUI GALEASWIRE [facility].
--- NOTE | 2016-07-31 16:30 | NUR ---
[facility] CCT TEAM PRESENT IN ICU BED 7.REPORT AND DISCHARGE PACKAGE GIVEN TO MAXIMILIANO PARKER RN.
--- NOTE | 2016-07-31 17:25 | NUR ---
PT CONDITION IS STABLE, NO CHANGE IN NEURO STATUS OR CARDIAC STATUS.NO SIGN OF RESPIRATORY DISTRESS. SALINE LOCK IV, FLUSHED G-TUBE, CLAMPED G-TUBE PRIOR TO DISCHARGE, EMPTIED OLIVARES CATH WITH 1400 ML URINE OUTPUT. FINGER STICK BLOOD SUGAR CHECKED WITH NORMAL RESULT. DISCHARGED PT WITH [facility] CCT TEAM .
== END 2016-07-31 17:25 | DRG 720 ==
LOC: MED 08:04 → MIC 10:51
PROVIDERS: ADMIT Family Medicine; ATTEND Family Medicine
PROC: 5A1955Z Respiratory Ventilation, Greater than 96 Consecutive Hours (ICD-10-PCS; principal; 2016-07-23)
PROC: 02HV33Z Insertion of Infusion Device into Superior Vena Cava, Percutaneous Approach (ICD-10-PCS; 2016-07-23)
PROC: 02PYX3Z Removal of Infusion Device from Great Vessel, External Approach (ICD-10-PCS; 2016-07-26)
PROC: 02HV33Z Insertion of Infusion Device into Superior Vena Cava, Percutaneous Approach (ICD-10-PCS; 2016-07-26)
PROC: 0JB70ZZ Excision of Back Subcutaneous Tissue and Fascia, Open Approach (ICD-10-PCS; 2016-07-28)
DX: A41.9 Sepsis, unspecified organism (principal); J96.21 Acute and chronic respiratory failure with hypoxia; N17.0 Acute kidney failure with tubular necrosis; R65.21 Severe sepsis with septic shock; J69.0 Pneumonitis due to inhalation of food and vomit; G93.1 Anoxic brain damage, not elsewhere classified; L89.154 Pressure ulcer of sacral region, stage 4; E87.1 Hypo-osmolality and hyponatremia; B37.9 Candidiasis, unspecified; E43 Unspecified severe protein-calorie malnutrition; E87.8 Other disorders of electrolyte and fluid balance, not elsewhere classified; G40.909 Epilepsy, unspecified, not intractable, without status epilepticus; E11.9 Type 2 diabetes mellitus without complications; K21.9 Gastro-esophageal reflux disease without esophagitis; I10 Essential (primary) hypertension; J96.22 Acute and chronic respiratory failure with hypercapnia; J15.1 Pneumonia due to Pseudomonas; E87.6 Hypokalemia; I45.2 Bifascicular block; E02 Subclinical iodine-deficiency hypothyroidism; D63.8 Anemia in other chronic diseases classified elsewhere; E83.42 Hypomagnesemia; K44.9 Diaphragmatic hernia without obstruction or gangrene; N39.0 Urinary tract infection, site not specified; Z16.12 Extended spectrum beta lactamase (ESBL) resistance; R47.01 Aphasia; Z93.1 Gastrostomy status; Z99.11 Dependence on respirator [ventilator] status; Z93.0 Tracheostomy status; I69.351 Hemiplegia and hemiparesis following cerebral infarction affecting right dominant side; Z88.1 Allergy status to other antibiotic agents; Z79.899 Other long term (current) drug therapy; Z68.24 Body mass index [BMI] 24.0-24.9, adult

== ENCOUNTER 2016-08-19 14:16 | Inpatient (IN) | payer MEDICAID ==
[2016-08-19] VITALS (10 sets, daily range): BP systolic 79–119; BP diastolic 55–78
[~2016-08-19] VITALS: Ht 172.7 cm; Wt 73.5 kg
[~2016-08-19 14:16] MED LIST: DILANTIN-1125 MG/5 M GT; DIOVAN80 M1 GT; DULCOLAX10 M2 RC; FERROUS SULF GT; FLORASTOR250 MG PO; HYDRALAZINE10 MG GT; KEPPRA100 MG/ML GT; KEPPRA750 MG GT; LANOXIN0.125 MG GT; MEROPENEM-1 GM/50 ML IV; MULTIPLE VITAMI1 T25 GT; NEXIUM20 MG GT; NORCO 325 MG-51 TAB GT; PHENYTOIN100 MG/4 M GT; PRO STAT PO; TYLENOL325 M2 GT; VITAMIN C500 MG/5 M GT; ZAFIRLUKAST10 MG GT; ZOFRAN4 M1 GT; [UNRECOGNIZED DRUG - OTHER] IV
--- NOTE | 2016-08-19 14:16 | NUR ---
55M BIBA FROM [facility] C/O INCREASED HEART RATE X THIS MORNING; PT HAS HX OF STROKE; ALERT, BUT APHASIC; NO CRYING OR FACIAL GRIMMACE NOTED AT THIS TIME; RHONCHI HEARD ON BL LUNGS; PT ARRIVED TO ER W/ MECHANICAL VENTILATOR, TRACH, G-TUBE, AND OLIVARES CATHETER; ABDOMEN FIRM, ROUND, ASCITIC, HYPOACTIVE BOWEL SOUNDS X 4 QUADRANTS; PT NOTED W/ OPEN PRESSURE ULCER TO SACRUM; NO BLEEDING OR DRAINAGE NOTED AT THIS TIME; SKIN IS COOL/ DRY AT THIS TIME; PT NOTED W/ BL FLACCID UPPER EXTREMITIES, AND CONTRACTURES TO BL LOWER EXTREMITIES; BED BOUND; SKIN IS COOL/ DRY; PT PLACED ON MONITOR, RESTING IN BED W/ HOB ELEVATED AND IN LOWEST POSITION; POSITIONED FOR COMFORT; ER MD MADE AWARE OF STATUS. WILL CONTINUE TO MONITOR.
--- NOTE | 2016-08-19 14:16 | NUR ---
[place] [facility] [place] [facility]. RN evaluating patient at bedside.
--- NOTE | 2016-08-19 14:17 | NUR ---
Dr. Smiley evaluating patient at bedside.
[2016-08-19] MEDS ORDERED: PIPERACILLIN/TAZOBACTAM 4.5 GM in DEXTROSE 5% 100 ML IV ONE (14:25)
[2016-08-19] MEDS ORDERED: LEVOFLOXACIN 750 MG/D5W PREMIX 150 ML IV ONE (14:25)
[2016-08-19] MEDS ORDERED: VANCOMYCIN 1,000 MG in DEXTROSE 5% 250 ML IV ONE (14:25)
[2016-08-19] MEDS ORDERED: LANOXIN0.125 MG GT (14:34)
--- NOTE | 2016-08-19 14:50 | NUR ---
RN'S AT BEDSIDE FOR IV INSERTION; BUSINESS SYSTEMS DEVELOPER AT BEDSIDE FOR BLOOD DRAWS RESTAURANT ASSISTANT TO ATTEMPT ABG PROCEDURE AT A LATER TIME
--- NOTE | 2016-08-19 15:00 | NUR ---
RADIOLOGY AT BEDSIDE FOR CHEST X-RAY SITE FOREMAN TO ATTEMPT ANG PROCEDURE AT A LATER TIME
--- NOTE | 2016-08-19 15:15 | NUR ---
industrial hygiene technician at bedside.
[2016-08-19] MEDS ORDERED: PIPERACILLIN/TAZOBACTAM 2.25 GM VIAL IV ONE (15:27)
[2016-08-19] MEDS ORDERED: VANCOMYCIN 1,000 MG VIAL ONE (15:28)
--- NOTE | 2016-08-19 15:28 | NUR ---
Dr. Smiley at bedside for insertion/placement of internal jugular central venous line.
--- NOTE | 2016-08-19 16:00 | NUR ---
PT REPOSITIONED FOR COMFORT TO RT SIDE W/ PILLOWS TO BACK/BETWEEN LEGS; PT APPEARS TO BE RESTING COMFORTABLY IN BED; VSS A THIS TIME; WILL CONTINUE TO MONITOR.
[2016-08-19] MEDS ORDERED: NACL 0.9% 2,500 ML IV ONE (16:05)
[2016-08-19] MEDS ORDERED: BISACODYL 10 MG SUPP RC PRN (16:45)
[2016-08-19] MEDS ORDERED: HYDROcodone/APAP 5/325 MG 1 TAB TAB PO PRN (16:45)
[2016-08-19] MEDS ORDERED: ACETAMINOPHEN 325 MG TAB GT PRN ×2 (16:45)
[2016-08-19] MEDS ORDERED: ONDANSETRON 4 MG TAB GT PRN (16:45)
[2016-08-19] MEDS ORDERED: hydrALAZINE 10 MG TAB GT PRN (16:45)
[2016-08-19] MEDS ORDERED: MORPHINE SULFATE 2 MG/ML SYR IVP PRN (16:45)
[2016-08-19] MEDS ORDERED: VANCOMYCIN PER PHARMACY MC PRN (17:00)
[2016-08-19] MEDS ORDERED: SODIUM POLYSTYRENE 15 GM/60 ML UDBTL GT SCH (17:05)
[2016-08-19] MEDS ORDERED: DEXTROSE 50% 50 ML SYR IVP PRN (17:10)
[2016-08-19] MEDS ORDERED: ALBUTEROL SULFATE/IPRATROPIU 3 ML SOL IH PRN (17:10)
[2016-08-19] MEDS ORDERED: INSULIN LISPRO SLIDING SCALE 100 UNITS/ML VIAL SUBQ PRN (17:10)
[2016-08-19] MEDS ORDERED: LACTULOSE 20 GM/30 ML UDC GT SCH (17:10)
--- NOTE | 2016-08-19 17:39 | NUR ---
GAVE REPORT TO ADAL SHARP; WILL TRANSFER PT IN 15 MINUTES PER ICU REQUEST.
--- NOTE | 2016-08-19 17:51 | NUR ---
PATIENT TRANSFERRING TO ICU-8 AT THIS TIME
--- NOTE | 2016-08-19 17:55 | NUR ---
Patient will be admitted to care of DR. SANDRA LARRY. Admited to ICU. Will go to room ICU 8. Belongings list completed. Report to ADAL SHARP.
--- NOTE | 2016-08-19 18:10 | NUR ---
ADMITTED FROM ER THIS 55 YR. OD WHITE MALE PER TRISTEN ACCPD. BY ER NURSES. UNABLE TO OBTAIN INFO. FROM PT. DUE TO ALOC. TRACH TO VENT TV 500, FI02 70%, AC10/MIN, PEEP 5. SUCTIONED MOD. MELINDA COFFEE GROUND SECRETIONS. NO RESP. DISTRESS NOTED. VOMITING MOD. AMT. COFFEE GROUND SECRETIONS. GT CONNECTED TO DRAINAGE BAG. DRAINED [address]EE GROUND [address] INITIALLY. RT IJ TLC IN PLACE. LEVAQUIN INFUSING.
--- NOTE | 2016-08-19 18:30 | NUR ---
DR. HELMS NOTIFIED OF GT DRAINAGE.
[2016-08-19] MEDS: NACL 0.9% 1,000 ML IV SCH ×2 (18:47→22:15)
--- NOTE | 2016-08-19 19:00 | NUR ---
DR. BAKER HERE TO SEE AND EXAMINE PT.
--- NOTE | 2016-08-19 19:34 | NUR ---
REPORT GIVEN TO ABIGAIL GALEAS.
[2016-08-19] MEDS ORDERED: NACL 0.9% 1,000 ML IV ONE (19:35)
--- NOTE | 2016-08-19 19:35 | NUR ---
RECEIVED REPORT FROM ADAL SHARP. INITIAL ASSESSMENT COMPLETED. PT IS NON VERBAL, AROUSABLE TO VERBAL STIMULI, DOES NOT FOLLOW COMMANDS. PT IS ON TRACH TO VENT, FIO2 70%, TV 500, AC 10, PEEP 5. IV ACCESS LEFT IJ TLC, IVF INFUSING UPON INITIAL ASSESSMENT. G-TUBE IN PLACE, DRAIN BY GRAVITY, NOTED TO COFFEE GROUND TO DARK GREEN GASTRIC DRAINAGE. OLIVARES CATH IN PLACE. WOUND DRESSING SACRAL AREA DRY AND INTACT. RIGHT UPPER AND LOWER EXTREMITIES EDEMA. SAFETY MEASURE ENSURE, CONTACT PRECAUTION MAINTAINED. BED IN LOW POSITION. WILL CONTINUE TO MONITOR. NO SIGNS OF SOB AT THIS TIME.
[2016-08-19] MEDS: ALBUTEROL SULFATE/IPRATROPIU 3 ML SOL IH SCH (20:02)
--- NOTE | 2016-08-19 20:09 | NUR ---
FIO2 DECREASED TO 50% BY RT WILLIE. WILL CONTINUE TO MONITOR.
--- NOTE | 2016-08-19 20:21 | NUR ---
PAGED AND SPOKE TO DR. John LARRY ABOUT PATIENT'S CENTRAL LINE. DR. LARRY AWARE OF XRAY RESULTS. DR. John LARRY SAID IT IS OK TO USE CENTRAL LINE AND HE WILL PUT IN THE ORDER.
[2016-08-19] MEDS: BLOOD GLUCOSE MONITORING 1 DEV DEV FS SCH (20:28)
[2016-08-19] MEDS: levETIRAcetam 500 MG TAB GT SCH (20:58)
[2016-08-19] MEDS: FERROUS SULFATE 300 MG/5 ML UDC GT SCH (20:59)
[2016-08-19] MEDS: PHENYTOIN 100 MG/4 ML UDC GT SCH (20:59)
[2016-08-19] MEDS ORDERED: NON-FORMULARY ITEM (Amino Acids/Protein Hydrolys (Pro-Stat Sugar Free Liquid) 30 ML) PO SCH (21:00)
[2016-08-19] MEDS ORDERED: ZAFIRLUKAST 20 MG GT SCH (21:00)
[2016-08-19] MEDS: VALSARTAN 80 MG TAB GT SCH (21:00)
--- NOTE | 2016-08-19 22:00 | NUR ---
FIO2 DECREASED TO 40% BY ADAL TAPIA. NO SOB NOTED. WILL CONTINUE TO MONITOR.
--- NOTE | 2016-08-19 23:35 | NUR ---
LOWERED FIO2 TO 30% SATS 98%. NO SOB NOTED
[2016-08-20] VITALS (63 sets, daily range): BP systolic 82–157; BP diastolic 42–88
[2016-08-20] MEDS ORDERED: PIPERACILLIN/TAZOBACTAM 4.5 GM VIAL IV ONE ×2 (00:48→05:38)
--- NOTE | 2016-08-20 01:00 | NUR ---
SACRAL WOUND DRESSING STILL DRY AND INTACT. DRESSING NOT CHANGED. WILL CONTINUE TO MONITOR.
[2016-08-20] MEDS: PIPERACILLIN/TAZOBACTAM 4.5 GM in DEXTROSE 5% 100 ML IV SCH ×5 (01:01→23:58)
--- NOTE | 2016-08-20 02:25 | NUR ---
COOLING MEASURE APPLIED. T = 99.8 WILL CONTINUE TO MONITOR.
--- NOTE | 2016-08-20 04:30 | NUR ---
MORNING CARE DONE. PT HAD MODERATE AMOUNT OF PASTY BROWN STOOL.
[2016-08-20] MEDS: BLOOD GLUCOSE MONITORING 1 DEV DEV FS SCH ×4 (06:54→21:37)
--- NOTE | 2016-08-20 07:40 | NUR ---
RECEIVED REPORT FROM TUBE REBUILDER RN. PT IS NON VERBAL, DOES NOT FOLLOW COMMANDS. ON TRACH TO VENT, FIO2 70%, TV 500, AC 10, PEEP 5. NO S/S OF RESPIRATORY DISTRESS NOTED. LUNG SOUNDS RHONCHI. G-TUBE IN PLACE, DRAIN BY GRAVITY, COFFEE GROUND TO DARK GREEN GASTRIC DRAINAGE NOTED. OLIVARES CATH IN PLACE. ABDOMEN SOFT WITH ACTIVE BOWEL SOUND.SKIN NON INTACT ( SEE WOUND ASSESSMENT). IV ACCESS LEFT IJ TLC, IVF INFUSING UPON INITIAL ASSESSMENT. SITE INTACT AND PATENT. NO FEVER.SAFETY MEASURE ENSURE, CONTACT PRECAUTION MAINTAINED. BED IN LOW POSITION. WILL CONTINUE TO MONITOR.
--- NOTE | 2016-08-20 07:44 | NUR ---
REPORT GIVEN TO ADAL STANLEY FOR CONTINUITY OF CARE. NO SOB/NO DISTRESS NOTED.
[2016-08-20] MEDS: NACL 0.9% 1,000 ML IV SCH ×2 (07:45→21:13)
[2016-08-20] MEDS ORDERED: NACL 0.9% 1,000 ML IV ONE (07:45)
[2016-08-20] MEDS ORDERED: NOREPINEPHRINE 4 MG in DEXTROSE 5% 250 ML IV PRN (07:50)
[2016-08-20] MEDS ORDERED: CLINICAL MONITORING MC PRN (07:50)
--- NOTE | 2016-08-20 07:57 | NUR ---
PATIENT HAS BEEN SCREENED AND CATEGORIZED HIGH NUTRITION RISK. PATIENT WILL BE SEEN WITHIN 1-2 DAYS OF ADMISSION. 08/20/16-08/21/[address]
--- NOTE | 2016-08-20 08:00 | NUR ---
PT HAD LARGE AMOUNT OF WATERY GREENISH STOOL, CLEANED PT. TURNED AND REPOSITIONED PT.
[2016-08-20] MEDS ORDERED: ACETAMINOPHEN 650 MG/20.3 ML UDC GT PRN (08:05)
--- NOTE | 2016-08-20 08:05 | NUR ---
RN'S AT BEDSIDE FOR PATIENT WOUND CARE, PHYSICAL HYGIENE AND REPOSITION NO DISTRESS NOTED VENTILATOR ON AND FUNCTIONING WELL PROSTHETICS TECHNICIAN TO ATTEMPT HHN THERAPY AT A LATER TIME
[2016-08-20] MEDS: ALBUTEROL SULFATE/IPRATROPIU 3 ML SOL IH SCH ×4 (08:26→19:20)
--- NOTE | 2016-08-20 08:26 | NUR ---
RECEIVED ON A QuantopianSCAPE R860 VENTILATOR PLUGGED INTO RED OUTLET TOLERATING WELL WITHOUT INCIDENT TO A PORTEX #8 DCT AIRWAY SECURED WITH A MARIA T TRACH TIE CUFF PRESSURE CHECKED FOR MOV AMBU BAG NOTED AT HOB LOC AWAKE BREATHS SOUNDS COARSE RHONCHI BILATERAL GOOD CHEST RISE PRE AND POST HYPEROXYGENATION FOR SUCTIONING DEEP TRACHEAL SUCTION FOR MODERATE THIN YELLOW SECRETIONS AIRWAY PATENT SUCTION STOMA DRAINAGE FOR SMALL THIN YELLOW TO CLEAR SECRETIONS
[2016-08-20] MEDS ORDERED: DIGOXIN 0.125 MG TAB GT SCH (09:00)
[2016-08-20] MEDS ORDERED: MULTIVITAMIN 1 TAB PO SCH (09:00)
--- NOTE | 2016-08-20 10:00 | NUR ---
PT OPENS EYES BUT DOES NOT FOLLOW COMMANDS. TURNED AND REPOSITIONED PT. NO SOB AT THIS TIME. WILL CONTINUE TO MONITOR.
--- NOTE | 2016-08-20 10:01 | NUR ---
AWAKE STABLE NO EVIDENCE OF RESPIRATORY DISTRESS NOTED BREATH SOUNDS RHONCHI BILATERAL GOOD CHEST RISE PRE AND POST HYPEROXYGENATION FOR SUCTIONING DEEP TRACHEAL SUCTION FOR MODERATE THICK YELLOW SECRETIONS AIRWAY PATENT STOMA DRAINAGE SUCTION FOR LARGE GELATINOUS YELLOW TO CLEAR SECRETION CHANGED STOMA DRAIN SPONGE
[2016-08-20] MEDS: LEVOFLOXACIN 750 MG/D5W PREMIX 150 ML IV SCH (10:09)
[2016-08-20] MEDS: FERROUS SULFATE 300 MG/5 ML UDC GT SCH ×2 (10:10→21:14)
[2016-08-20] MEDS: PHENYTOIN 100 MG/4 ML UDC GT SCH ×2 (10:10→21:14)
[2016-08-20] MEDS: LACTOBACILLUS RHAMNOSUS GG 1 EACH CAP GT SCH ×2 (10:11→21:14)
[2016-08-20] MEDS: levETIRAcetam 500 MG TAB GT SCH (10:11)
[2016-08-20] MEDS: VALSARTAN 80 MG TAB GT SCH (10:12)
[2016-08-20] MEDS: LANSOPRAZOLE 30 MG CAPDR GT SCH ×2 (10:12→21:14)
[2016-08-20] MEDS ORDERED: ONDANSETRON 4 MG/5 ML ORASYR GT PRN (11:13)
[2016-08-20] MEDS: VANCOMYCIN 750 MG in DEXTROSE 5% 250 ML IV SCH ×2 (11:42→21:16)
--- NOTE | 2016-08-20 11:51 | NUR ---
PT HAS HYPOTENSION T THIS TIME. STARTED PT ON LEVOPHED DRIP 5MCG/MIN . WILL CONTINUE TO CLOSELY MONITOR PT.
[2016-08-20] MEDS ORDERED: POTASSIUM CHLORIDE 20% 40 MEQ/15 ML UDC GT SCH (12:04)
[2016-08-20] MEDS ORDERED: MAG SULF 2000 MG/WATER PREMIX 50 ML IV SCH (12:05)
--- NOTE | 2016-08-20 12:09 | NUR ---
SS NOTE: MESSAGE LEFT FOR PT'S PUBLIC GUARDIANLILIBETH REGARDING PT'S CONSERVATORSHIP PAPERWORK AND PT'S D/C PLAN
--- NOTE | 2016-08-20 12:20 | NUR ---
ASLEEP RESTING WELL ULTRA SOUND PROCEDURE DONE BREATH SOUNDS RHONCHI BILATERAL GOOD CHEST RISE PRE AND POST HYPEROXYGENATION FOR SUCTIONING DEEP TRACHEAL SUCTIONING FOR LARGE THICK YELLOW SECRETIONS AIRWAY PATENT STOMA DRAINAGE SUCTION FOR SMALL GELATINOUS CLEAR SECRETIONS
[2016-08-20] MEDS ORDERED: MAGNESIUM HYDROXIDE 2400 MG/30 ML UDC PO SCH (13:00)
--- NOTE | 2016-08-20 14:10 | NUR ---
PT BP IN NORMAL RANGE. TURNED AND REPOSITIONED PT. NO S/S OF RESPIRATORY DISTRESS NOTED.
--- NOTE | 2016-08-20 14:42 | NUR ---
08/20/16 RD INITIAL ASSESSMENT COMPLETED PLEASE REFER TO NUTRITION ASSESSMENT UNDER CARE ACTIVITY FOR ESTIMATED NUTRITIONAL NEEDS. RD RECOMMENDATIONS: 1. RECOMMEND NUTRITION SUPPORT DIABETISOURCE AC AT 10 ML/HR AND ADVANCE TOLERATED 10 ML Q6H VIA GTUBE TO GOAL 70 ML/HR --AT GOAL OF 70 ML/HR THIS WILL PROVIDE 1680 ML TOTAL VOLUME, 2016 KCAL, 101 GM PROTEIN TO MEET 100% OF PT ESTIMATED KCAL AND 96% OF PT ESTIMATED PROTEIN NEEDS 2. RD WILL F/U 2-3 DAYS; HIGH RISK. HYACINTH KHAN RD
--- NOTE | 2016-08-20 15:06 | NUR ---
ASLEEP RESTING WELL NO EVIDENCE OF RESPIRATORY DISTRESS NOTED TOLERATING VENTILATOR SUPPORT WELL WITHOUT INCIDENT BREATH SOUNDS DIFFUSE RHONCHI BILATERAL GOOD CHEST RISE PRE AND POST HYPEROXYGENATION FOR SUCTIONING DEEP TRACHEAL SUCTION FOR SMALL THIN PALE YELLOW SECRETIONS AIRWAY PATENT
[2016-08-20] MEDS ORDERED: THERAHONEY WOUND DRESSING TP PRN (15:50)
--- NOTE | 2016-08-20 15:55 | NUR ---
CALLED PATIENT'S DEPUTY PUB.GUARDIAN AND LEFT A MESSAGE FOR LILIBETH WATSON TO CALL BACK REGARDING TO OBTAINING THE CONSENT FOR EGD PROCEDURE.
--- NOTE | 2016-08-20 16:10 | NUR ---
TURNED AND REPOSITIONED PT. NO SOB.
--- NOTE | 2016-08-20 16:39 | NUR ---
AWAKE NO SOB NOTED TOLERATING VENTILATOR SUPPORT WELL WITHOUT INCIDENT BREATH SOUNDS RHONCHI BILATERAL GOOD CHEST RISE DEEP TRACHEAL SUCTION FOR MODERATE THICK YELLOW SECRETIONS AIRWAY PATENT
[2016-08-20] MEDS: METOCLOPRAMIDE 10 MG/2 ML INJ VIAL IVP SCH (17:47)
--- NOTE | 2016-08-20 17:59 | NUR ---
AWAKE STABLE NO DISTRESS NOTED BREATH SOUNDS RHONCHI BILATERAL GOOD CHEST RISE DEEP TRACHEAL SUCTION FOR MODERATE THICK YELLOW SECRETIONS AIRWAY PATENT
--- NOTE | 2016-08-20 19:10 | NUR ---
REPORT GIVEN TO DRISS GALEAS.
--- NOTE | 2016-08-20 19:30 | NUR ---
RCV'D PT ON MECHANICAL VENT WITH PORTEX 8 TRACH. VENT SETTINGS ARE AC 10,500,5,30%. TRACH IS IN PLACE AND SECURED. VENT IS CONNECTED TO RED OUTLET. ALARMS ARE AUDIBLE. SXN'D SMALL AMT OF THICK CREAMY WHITE SECRETIONS. AMBU BAG AT BEDSIDE. NO DISTRESS OR SOB NOTED. WILL CONTINUE TO MONITOR.
--- NOTE | 2016-08-20 19:36 | NUR ---
RECEVIED REPORT FROM LIZETH GALEAS. PATIENT IS AAOX1, NONVERBAL, OPENS EYES SPONTANEOUSLY, BUT DOES NOT FOLLOW SIMPLE COMMANDS. PATIENT IS BEDBOUND. PATIENT IS TRACH TO VENT WITH SETTINGS OF FIO2 30%, TV 500, A/C 10 AND PEEP 5. NO S/S OF ACUTE RESPIRATORY DISTRESS OR SOB NOTED. BREATH SOUNDS ARE COARSE UPON AUSCULTATION. BOWEL SOUNDS ARE ACTIVE. THERE IS A G-TUBE PRESENT. PATIENT IS RECEIVING FIBERSOURCE AT 20 ML/HR. PATIENT IS TOLERATING FEEDING WELL WITH NO RESIDUAL NOTED. THERE IS A OLIVARES CATHETER PRESENT DRAINING TO GRAVITY WITH MODERATE AMOUNT OF LIGHT RIA COLOR URINE NOTED. SCDS ARE IN PLACE FOR VTE PROPHYLAXIS. THERE IS A TRIPLE LUMEN CATETHER IN THE LEFT IJ WITH PATIENT RECEIVING NORMAL SALINE AT 90 ML/HR AND LEVOPHED AT 5MCG/MIN. SITE IS DRY, INTACT, AND PATENT. VITALS ARE STABLE. VAP ORAL CARE RENDERED. HOB AT 30 DEGREES WITH BED IN LOW POSITION. CONTINUE TO MONITOR PATIENT.
[2016-08-20] MEDS: levETIRAcetam 100 MG/ML ORASYR GT SCH (21:14)
[2016-08-20] MEDS: CHLORHEXADINE GLUC 2% CLOTH TP SCH (21:15)
[2016-08-20] MEDS: MUPIROCIN 2% OINT 22 GM TUBE TP SCH (21:15)
[2016-08-20] MEDS: MONTELUKAST SODIUM 10 MG TAB PO SCH (21:15)
--- NOTE | 2016-08-20 21:43 | NUR ---
TOLERATED SCHEDULED MEDICATIONS. NO SIGNS OF SOB NOTED. PATIENT REPOSITIONED FOR COMFORT. BLOOD SUGAR IS 119. NO INSULIN COVERAGE NEEDED AT THIS TIME. HOB AT 30 DEGREES WITH BED IN LOW POSITION. CONTINUE TO MONITOR PATIENT.
[2016-08-21] VITALS (24 sets, daily range): BP systolic 87–148; BP diastolic 47–94
[2016-08-21] MEDS: METOCLOPRAMIDE 10 MG/2 ML INJ VIAL IVP SCH ×4 (00:02→17:52)
--- NOTE | 2016-08-21 00:12 | NUR ---
VAP ORAL CARE RENDERED. NO SIGNS OF SOB NOTED. HOB AT 30 DEGREES WITH BED IN LOW POSITION. CONTINUE TO MONITOR PATIENT.
--- NOTE | 2016-08-21 01:38 | NUR ---
MORNING CARE RENDERED. BED BATH AND PERINEAL CARE GIVEN. CHANGED PATIENT'S GOWN AND LINENS. REPOSITIONED PATIENT FOR COMFORT. NO SIGNS OF SOB NOTED. HOB AT 30 DEGREES WITH BED IN LOW POSITION. CONTINUE TO MONITOR PATIENT.
--- NOTE | 2016-08-21 03:16 | NUR ---
PATIENT REPOSITIONED FOR COMFORT. VAP ORAL CARE RENDERED. NO SIGNS OF RESPIRATORY DISTRESS NOTED. HOB AT 30 DEGREES WITH BED IN LOW POSITION. CONTINUE TO MONITOR PATIENT.
--- NOTE | 2016-08-21 05:27 | NUR ---
TRACH CARE DONE. TRACH IS IN PLACE AND SECURED. NO SOB OR DISTRESS NOTED. WILL CONTINUE TO MONITOR.
[2016-08-21] MEDS: PIPERACILLIN/TAZOBACTAM 4.5 GM in DEXTROSE 5% 100 ML IV SCH ×3 (05:32→17:52)
[2016-08-21] MEDS: NACL 0.9% 1,000 ML IV SCH ×2 (05:42→23:21)
[2016-08-21] MEDS: BLOOD GLUCOSE MONITORING 1 DEV DEV FS SCH ×4 (06:33→21:56)
--- NOTE | 2016-08-21 06:33 | NUR ---
BLOOD SUGAR IS 97. NO INSULIN COVERAGE NEEDED AT THIS TIME. PATIENT IS SLEEPING IN BED WITH NO SIGNS OF SOB OR RESPIRATORY DISTRESS NOTED. HOB AT 30 DEGREES WITH BED IN LOW POSITION. CONTINUE TO MONITOR PATIENT.
[2016-08-21] MEDS: ALBUTEROL SULFATE/IPRATROPIU 3 ML SOL IH SCH ×4 (07:04→19:55)
--- NOTE | 2016-08-21 07:04 | NUR ---
RECEIVED PT ON CARESCAPE ON A\C 10 VT 500 PEEP5 FIO2 30 ALARMS ARE ON AND FUNCTIONAL BMV HOB PTS TRACH PORTEX 8 IS SECURE BS RHONCI I\L LAVAGE AND SX COPIOUS YELLOW PT IN HF NOT AWAKE VENT PLUGGED INTO RED OUTLET HHN GIVEN I\L WITH 3 MG DUONEB
--- NOTE | 2016-08-21 07:09 | NUR ---
PATIENT IN STABLE CONDITION. ENDORSED CONTINUITY OF CARE TO LIZETH GALEAS.
--- NOTE | 2016-08-21 07:40 | NUR ---
RECEVIED REPORT FROM DRISS GALEAS. PATIENT IS UNRESPONSIVE TO NAME STIMULI. OPENS EYES SPONTANEOUSLY BUT DOES NOT FOLLOW SIMPLE COMMANDS. TRACH TO VENT WITH SETTINGS OF FIO2 30%, TV 500, A/C 10 AND PEEP 5. NO S/S OF ACUTE RESPIRATORY DISTRESS OR SOB NOTED. BREATH SOUNDS ARE RHONCHI UPON AUSCULTATION. G-TUBE IS RECEIVING FIBERSOURCE AT 20 ML/HR , RESIDUAL CHECKED, NO RESIDUAL. OLIVARES CATHETER IN PLACE WITH SMALL AMOUNT OF YELLOW COLOR URINE NOTED. SCDS IN PLACE. ABDOMEN SOFT, BOWEL SOUNDS ACTIVE. PT HAD A LARGE AMOUNT OF WATERY GREENISH STOOL, CLEANED PT, GOWN CHANGED. A TRIPLE LUMEN CATHETER IN THE LEFT IJ RECEIVING NORMAL SALINE AT 90 ML/HR . SITE IS INTACT AND PATENT. VAP ORAL CARE GIVEN. HOB AT 30 DEGREES WITH BED IN LOW POSITION. WILL CONTINUE TO MONITOR PATIENT.
[2016-08-21] MEDS: FERROUS SULFATE 300 MG/5 ML UDC GT SCH ×2 (08:01→21:41)
[2016-08-21] MEDS: MULTIVITAMIN 5 ML ORASYR GT SCH (08:02)
[2016-08-21] MEDS: PHENYTOIN 100 MG/4 ML UDC GT SCH ×2 (08:02→21:40)
[2016-08-21] MEDS: LACTOBACILLUS RHAMNOSUS GG 1 EACH CAP GT SCH ×2 (08:04→21:40)
[2016-08-21] MEDS: LEVOFLOXACIN 750 MG/D5W PREMIX 150 ML IV SCH (08:05)
[2016-08-21] MEDS: LANSOPRAZOLE 30 MG CAPDR GT SCH (08:05)
--- NOTE | 2016-08-21 08:10 | NUR ---
CALLED PATIENT'S PUB.GUARDIAN AT [phone] REGARDING TO OBTAINING THE CONSENT FOR EGD PER ORDERED,BUT NO ONE ANSWER THE PHONE AND THERE IS NO VOICE MESSAGE SYSTEM AVAILABLE AT THIS TIME. WILL TRY TO CALL AGAIN.
[2016-08-21] MEDS ORDERED: ALBUTEROL SULFATE/IPRATROPIU 3 ML SOL IH PRN (08:15)
[2016-08-21] MEDS ORDERED: POTASSIUM CHLORIDE 20% 40 MEQ/15 ML UDC GT SCH (08:30)
--- NOTE | 2016-08-21 08:59 | NUR ---
VENT CHECK BS RHONCI I\L LAVAGE AND SX COPIOUS YELLOW
[2016-08-21] MEDS: VALSARTAN 80 MG TAB GT SCH (09:00)
[2016-08-21] MEDS ORDERED: VALSARTAN 80 MG TAB GT SCH (09:00)
[2016-08-21] MEDS ORDERED: VANCOMYCIN 1GM/DEXT 5% PREMIX 200 ML IV SCH (09:05)
--- NOTE | 2016-08-21 09:15 | NUR ---
PT TOLERATED DUE MEDS WELL.
[2016-08-21] MEDS: levETIRAcetam 100 MG/ML ORASYR GT SCH ×2 (09:39→21:41)
--- NOTE | 2016-08-21 10:15 | NUR ---
CALLED PT'S PUB.GUARDIAN AGAIN. STILL HAS NO ONE ANSWER THE PHONE,UNABLE TO LEAVE A MESSAGE.
--- NOTE | 2016-08-21 12:20 | NUR ---
CAME IN TO SEE PT,UPDATED PT'S HGB 6.6 AND HCT 19.7, ORDER RECEIVED, WILL CARRY OUT.
--- NOTE | 2016-08-21 13:15 | NUR ---
PT HAD MODERATE AMOUNT OF WATERY GREENISH STOOL, CLEANED PT .
--- NOTE | 2016-08-21 13:32 | NUR ---
VENT CHECK BS RHONCI I\L LAVAGE AND SX COPIOUS YELLOW
[2016-08-21] MEDS ORDERED: ACETAMINOPHEN 325 MG TAB PO SCH (14:02)
[2016-08-21] MEDS: ACETAMINOPHEN 325 MG TAB PO SCH ×2 (14:14→18:23)
--- NOTE | 2016-08-21 15:08 | NUR ---
STARTED PT ON BLOOD TRANSFUSION. T 98.1, P 76, BP 106/63,RR 11.
--- NOTE | 2016-08-21 15:20 | NUR ---
VENT CHECK BS RHONCI I\L LAVAGE AND SX COPIOUS YELLOW I\L HHN GIVEN WITH 3 MG DUONEB
--- NOTE | 2016-08-21 17:41 | NUR ---
VENT CHECK BS RHONCI I\L LAVAGE AND SX LG YELLOW
[2016-08-21] MEDS: FUROSEMIDE 20 MG TAB PO SCH (18:17)
--- NOTE | 2016-08-21 18:35 | NUR ---
STARTED PT ON THE SECOND UNIT BLOOD TRANSFUSION. T 97.6, P 75, BP 118/87, RR 19. NO S/S OF RESPIRATORY DISTRESS NOTED.
--- NOTE | 2016-08-21 19:05 | NUR ---
REPORT GIVEN TO DRISS GALEAS. NO S/S OF RESPIRATORY DISTRESS NOTED, VSS.
--- NOTE | 2016-08-21 19:25 | NUR ---
RECEIVED PT ON THE SAME VENT SETTINGS, MED NEB IN LINE, SX MOD PALE SECRTION, NO DISTRES NOTED.
--- NOTE | 2016-08-21 19:40 | NUR ---
RECEIVED REPORT FROM LIZETH GALEAS. PATIENT IS AAOX1, NONVERBAL, OPENS EYES SPONTANEOUSLY, BUT DOES NOT FOLLOW SIMPLE COMMANDS. PATIENT IS BEDBOUND. PATIENT IS TRACH TO VENT WITH SETTINGS OF FIO2 30%, TV 500, A/C 10 AND PEEP 5. NO S/S OF ACUTE RESPIRATORY DISTRESS OR SOB NOTED. BREATH SOUNDS ARE COARSE UPON AUSCULTATION. BOWEL SOUNDS ARE ACTIVE. THERE IS A G-TUBE PRESENT. PATIENT IS RECEIVING FIBERSOURCE AT 20 ML/HR. THERE IS A OLIVARES CATHETER PRESENT DRAINING TO GRAVITY WITH MODERATE AMOUNT OF CLEAR YELLOW COLOR URINE NOTED. SCDS ARE IN PLACE FOR VTE PROPHYLAXIS. THERE IS A TRIPLE LUMEN CATETHER IN THE LEFT IJ WITH PATIENT RECEIVING NORMAL SALINE AT 40 ML/HR AND TRANSFUSION OF PRBC AT 120 ML/HR. THIS IS THE 2ND UNIT OF PRBC. SITE IS DRY, INTACT, AND PATENT. VITALS ARE STABLE. VAP ORAL CARE RENDERED. HOB AT 30 DEGREES WITH BED IN LOW POSITION. CONTINUE TO MONITOR PATIENT.
--- NOTE | 2016-08-21 20:04 | NUR ---
RESPIRATORY AT BEDSIDE ADMINISTERING BREATHING TX. CHECKED PATIENT'S G-TUBE FEEDING RESIDUAL. 10 ML RESIDUAL NOTED. PATIENT TOLERATING FEEDING WELL. INCREASED G-TUBE FEEDING TO 40 ML/HR. CONTINUE TO MONITOR.
[2016-08-21] MEDS: VANCOMYCIN 1GM/DEXT 5% PREMIX 200 ML IV SCH (21:36)
[2016-08-21] MEDS: CHLORHEXADINE GLUC 2% CLOTH TP SCH (21:36)
[2016-08-21] MEDS: MONTELUKAST SODIUM 10 MG TAB PO SCH (21:41)
[2016-08-21] MEDS: PANTOPRAZOLE 40 MG INJ VIAL IVP SCH (21:41)
[2016-08-21] MEDS: MUPIROCIN 2% OINT 22 GM TUBE TP SCH (21:42)
--- NOTE | 2016-08-21 21:45 | NUR ---
SECOND PACK OF PRBC COMPLETED. VITALS ARE STABLE. TEMPERATURE 97.5, BLOOD PRESSURE 131/85, 100%, RR 18, HR 74. CONTINUE TO MONITOR PATIENT.
--- NOTE | 2016-08-21 21:56 | NUR ---
TOLERATED DUE MEDICATIONS. NO S/S OF SOB OR RESPIRATORY DISTRESS NOTED. BLOOD SUGAR IS 107. NO INSULIN COVERAGE NEEDED AT THIS TIME. CONTINUE TO MONITOR PATIENT.
--- NOTE | 2016-08-21 22:49 | NUR ---
PATIENT HAD SCANTY SMEAR BM OF DARK GREEN COLOR. PERINEAL CARE PROVIDED. PATIENT REPOSITIONED FOR COMFORT. NO SIGNS OF RESPIRATORY DISTRESS NOTED. HOB AT 30 DEGREES WITH BED IN LOW POSITION. CONTINUE TO MONITOR PATIENT.
[2016-08-22] VITALS (22 sets, daily range): BP systolic 100–170; BP diastolic 54–94
--- NOTE | 2016-08-22 | NUR ---
NO CHANGES IN PT STATUS, VITALS STABLE, NO DISTRESS NOTED
[2016-08-22] MEDS: METOCLOPRAMIDE 10 MG/2 ML INJ VIAL IVP SCH ×3 (00:01→11:21)
[2016-08-22] MEDS: FUROSEMIDE 20 MG TAB PO SCH (00:01)
--- NOTE | 2016-08-22 00:01 | NUR ---
HELD G-TUBE FEEDING. PATIENT IS NPO AT MIDNIGHT PER DR. CORTES'S ORDER FOR SCHEDULED PROCEDURE. CONTINUE TO MONITOR.
[2016-08-22] MEDS: PIPERACILLIN/TAZOBACTAM 4.5 GM in DEXTROSE 5% 100 ML IV SCH ×5 (00:02→23:22)
--- NOTE | 2016-08-22 00:05 | NUR ---
VAP ORAL CARE RENDERED. NO SIGNS OF SOB NOTED. CONTINUE TO MONITOR.
--- NOTE | 2016-08-22 02:00 | NUR ---
PATIENT HAD MODERATE BM OF PASTY DARK GREEN STOOL. PERINEAL CARE PROVIDED. REPOSITIONED PATIENT FOR COMFORT. NO SIGNS OF SOB NOTED. HOB AT 30 DEGREES WITH BED IN LOW POSITION. CONTINUE TO MONITOR PATIENT. Addendum: 08/22/16 at 0245 by Oscar Chavez RN DRESSING CHANGED R/T BEING SOILED FROM BM. NO DISCHARGE OR ODOR NOTED ON DRESSING THAT WAS REMOVED.
[2016-08-22] MEDS: LORazepam 2 MG/ML VIAL IVP PRN (03:41)
--- NOTE | 2016-08-22 03:41 | NUR ---
ADMINISTERED ATIVAN 1MG IVP R/T PATIENT HAVING SEIZURE. WILL CONTINUE TO MONITOR.
--- NOTE | 2016-08-22 04:15 | NUR ---
PATIENT REPOSITIONED. VAP ORAL CARE RENDERED. NO SIGNS OF SOB NOTED. CONTINUE TO MONITOR PATIENT.
[2016-08-22] MEDS: BLOOD GLUCOSE MONITORING 1 DEV DEV FS SCH ×4 (06:24→20:23)
--- NOTE | 2016-08-22 06:29 | NUR ---
BLOOD SUGAR IS 79. NO INSULIN COVERAGE NEEDED AT THIS TIME. CONTINUE TO MONITOR PATIENT.
[2016-08-22] MEDS: ALBUTEROL SULFATE/IPRATROPIU 3 ML SOL IH SCH ×4 (06:54→19:52)
--- NOTE | 2016-08-22 06:54 | NUR ---
RECEIVED PT ON CARESCAPE ON A/C 10 VT500 PEEP5 FIO2 30 ALARMS ARE ON AND FUNCTIONAL PTS TRACH PORTEX 8 IS SECURE BS COARSE I\L LAVAGE AND SX COPIOUS YELLOW PT IN HF NOT AWAKE I\L HHN GIVEN WITH 3MG DUONEB VENT PLUGGED INTO RED OUTLET BMV HOB
--- NOTE | 2016-08-22 07:16 | NUR ---
ENDORSED CONTINUITY OF CARE TO CLIFFORD GALEAS.
--- NOTE | 2016-08-22 07:17 | NUR ---
RECEIVED REPORT FROM ADAL NAQVI. NO SIGNS OF ACUTE DISTRESS AT THIS TIME, FLACC 0. PT IS TRACH TO VENT. FIO2: 30%, AC: 10, TV: 500, PEEP: 5. PT IS NONVERBAL. LEFT IJ X3 LUMEN, ALL PORTS PATENT AND INTACT. G TUBE IN PLACE, CLAMPED AT THIS TIME. OLIVARES CATHETER IN PLACE DRAINING TO GRAVITY DRAINAGE BAG. WOUND NOTED TO SACRUM. PT IS ON CONTACT ISOLATION WITH SIGNS POSTED OUTSIDE OF PT'S ROOM. PT IS CURRENTLY SINUS RHYTHM AT THIS TIME. SAFETY PRECAUTIONS IN PLACE WITH BED IN LOWEST POSITION AND SIDE RAILS UP. CALL LIGHT WITHIN REACH. WILL CONTINUE TO MONITOR
[2016-08-22] MEDS: METOCLOPRAMIDE 10 MG/10 ML SYRP UDC GT SCH ×3 (07:30→17:37)
--- NOTE | 2016-08-22 07:49 | NUR ---
DR. LARRY'S GROUP IN TO SEE PT. WILL FOLLOW UP ON ORDERS.
[2016-08-22] MEDS: FERROUS SULFATE 300 MG/5 ML UDC GT SCH ×2 (08:00→20:21)
[2016-08-22] MEDS: LACTOBACILLUS RHAMNOSUS GG 1 EACH CAP GT SCH ×2 (08:00→20:22)
[2016-08-22] MEDS: VALSARTAN 80 MG TAB GT SCH (08:00)
[2016-08-22] MEDS: VANCOMYCIN 1GM/DEXT 5% PREMIX 200 ML IV SCH ×2 (08:00→20:23)
[2016-08-22] MEDS: PHENYTOIN 100 MG/4 ML UDC GT SCH ×2 (08:00→20:22)
[2016-08-22] MEDS: MULTIVITAMIN 5 ML ORASYR GT SCH (08:01)
[2016-08-22] MEDS: LEVOFLOXACIN 750 MG/D5W PREMIX 150 ML IV SCH (08:01)
[2016-08-22] MEDS: PANTOPRAZOLE 40 MG INJ VIAL IVP SCH (08:01)
[2016-08-22] MEDS: levETIRAcetam 100 MG/ML ORASYR GT SCH ×2 (08:01→20:22)
--- NOTE | 2016-08-22 08:10 | NUR ---
PT TOLERATED MEDS WELL.
--- NOTE | 2016-08-22 08:55 | NUR ---
TELEPHONE CONSENT FOR EGD GIVEN BY CONSERVATOR. SIGNED BY TWO RN'S AND PLACED IN PT'S CHART.
--- NOTE | 2016-08-22 09:04 | NUR ---
VENT CHECK BS COARSE I\L LAVAGE AND SX COPIOUS YELLOW PT IN HF NOT AWAKE
--- NOTE | 2016-08-22 09:38 | NUR ---
DR. SEAMAN IN TO SEE PT. WILL FOLLOW UP ON ORDERS.
--- NOTE | 2016-08-22 10:33 | NUR ---
CHECKED ON PT. NO SIGNS OF ACUTE DISTRESS AT THIS TIME. FLACC 0. WILL CONTINUE TO MONITOR.
--- NOTE | 2016-08-22 10:34 | NUR ---
DR. CORTES NOTIFIED OF SIGNED CONSENT FOR EGD.
--- NOTE | 2016-08-22 10:41 | NUR ---
VENT CHECK BS COARSE I\L LAVAGE AND SX COPIUOS WHITE FROTHY I\L HHN GIVEN WITH 3 MG DUONEB PT IS NOT ALERT
--- NOTE | 2016-08-22 11:21 | NUR ---
PT TOLERATED MEDS WELL.
[2016-08-22] MEDS ORDERED: diphenhydrAMINE 50 MG/ML VIAL ONE (12:37)
[2016-08-22] MEDS ORDERED: MIDAZOLAM 2 MG/2 ML VIAL ONE (12:37)
--- NOTE | 2016-08-22 12:54 | NUR ---
DR. CORTES IN TO SEE PT FOR EGD PROCEDURE.
[2016-08-22] MEDS: MIDAZOLAM 2 MG/2 ML VIAL ONE ×2 (13:02→13:30)
[2016-08-22] MEDS: fentaNYL 0.05 MG/ML VIAL ONE ×2 (13:04→13:30)
--- NOTE | 2016-08-22 13:22 | NUR ---
EGD COMPLETE, PT TOLERATED WELL. ALL VSS, WILL CONTINUE TO MONITOR.
--- NOTE | 2016-08-22 13:25 | NUR ---
VENT CHECK BS COARSE I\L LAVAGE AND SX LG YELLOW
--- NOTE | 2016-08-22 13:29 | NUR ---
PER DR. CORTES, TUBE FEEDING CONTINUED AT 40 ML/HR. NO RESIDUAL NOTED. WILL CONTINUE TO MONITOR.
--- NOTE | 2016-08-22 16:02 | NUR ---
DR. ORO IN TO SEE PT. WILL FOLLOW UP ON ORDERS.
[2016-08-22] MEDS ORDERED: LIDOCAINE 1% 500 MG/50 ML VIAL INJ SCH (16:15)
[2016-08-22] MEDS ORDERED: LIDOCAINE 1% 50 ML ONE (16:22)
--- NOTE | 2016-08-22 16:30 | NUR ---
TIME OUT CALLED. DR. ORO PERFORMED DEBRIDEMENT OF SACRUM WITH WOUND CARE NURSE, YOVANA, PRESENT. PT TOLERATED WELL. PHOTOS TAKEN, TIME OUT FORM AND PHOTOS PLACED IN PT'S CHART.
--- NOTE | 2016-08-22 16:30 | NUR ---
WOUND CARE NOTES: S/P BEDSIDE DEBRIDEMENT BY RESIDENT, PHYSICIAN DR. ORO. PRIMARY RN AT BEDSIDE DURING PROCEDURE. PRE AND POST DEBRIDEMENT PHOTOS OBTAINED AND PLACED IN THE CHART. PATIENT TOLERATED PROCEDURE WELL.
--- NOTE | 2016-08-22 17:10 | NUR ---
VENT CHECK BS COARSE I\L LAVAGE AND SX COPIOUS YELLOW
[2016-08-22] MEDS ORDERED: PROBIOTIC SCREEN 1 EA MISC MC PRN (17:15)
--- NOTE | 2016-08-22 17:41 | NUR ---
CHECKED TUBE FEEDING RESIDUAL: NONE NOTED. ADMINISTERED MEDICATION ORDERED. PT TOLERATED WELL.
[2016-08-22] MEDS: SULFAMETH/TRIMETH DS 800/160MG 1 TAB PO SCH (18:37)
--- NOTE | 2016-08-22 19:18 | NUR ---
ENDORSED CARE TO ADAL CEJA. PT IN STABLE CONDITION.
--- NOTE | 2016-08-22 20:00 | NUR ---
AWAKE, DOES NOT FOLLOW COMMANDS. SR ON THE MONITOR, TLC ON LIJ PATENT AND INTACT, OLIVARES CATH WITH YELLOW URINE OUTPUT, TURNED AND REPOSITIONED, FLACC 0.
[2016-08-22] MEDS: MONTELUKAST SODIUM 10 MG TAB PO SCH (20:22)
[2016-08-22] MEDS: CHLORHEXADINE GLUC 2% CLOTH TP SCH (20:23)
[2016-08-22] MEDS: MUPIROCIN 2% OINT 22 GM TUBE TP SCH (20:23)
[2016-08-22] MEDS: NACL 0.9% 1,000 ML IV SCH (20:23)
--- NOTE | 2016-08-22 20:30 | NUR ---
STOPPED INFUSION OF VANCOMYCIN 1 GM IVPB SCANNED AT 2022, RECEIVED VANCOMYCIN TROUGH RESULT, 19.
--- NOTE | 2016-08-22 21:00 | NUR ---
PATIENT'S OLIVARES CATHETER LEAKING, REINSERTED NEW OLIVARES CATH WITH YELLOW URINE RETURN.
--- NOTE | 2016-08-22 22:00 | NUR ---
SLEEPING COMFORTABLY, NO RESPIRATORY DISTRESS, FLACC 0.
[2016-08-23] VITALS (23 sets, daily range): BP systolic 125–167; BP diastolic 72–92
--- NOTE | 2016-08-23 | NUR ---
TURNED AND REPOSITIONED, SUCTIONED WITH YELLOW SECRETIONS, NO SOB, FLACC 0.
--- NOTE | 2016-08-23 04:00 | NUR ---
PATIENT WITH LARGE GREENISH SOFT STOOL, WASHED AND CLEANED, TURNED AND REPOSITIONED, FLACC 0, NO DISTRESS.
--- NOTE | 2016-08-23 04:00 | NUR ---
GT FEEDING WITH NO RESIDUAL OBTAINED, RATE INCREASED TO 50 ML/HR NOW.
[2016-08-23] MEDS: PIPERACILLIN/TAZOBACTAM 4.5 GM in DEXTROSE 5% 100 ML IV SCH ×4 (05:51→23:48)
[2016-08-23] MEDS: LANSOPRAZOLE 30 MG CAPDR PO SCH (05:51)
[2016-08-23] MEDS: SULFAMETH/TRIMETH DS 800/160MG 1 TAB PO SCH ×2 (05:52→20:34)
--- NOTE | 2016-08-23 06:41 | NUR ---
AM CARE PROVIDED, BLOOD SUGAR 100 MG/DL, NO COVERAGE. GT FEEDING TOLERATED WELL, NO RESPIRATORY DISTRESS, TURNED AND REPOSITIONED, HOB ELEVATED, FLACC 0.
[2016-08-23] MEDS: BLOOD GLUCOSE MONITORING 1 DEV DEV FS SCH ×4 (06:46→20:34)
[2016-08-23] MEDS: METOCLOPRAMIDE 10 MG/10 ML SYRP UDC GT SCH ×4 (06:52→16:31)
--- NOTE | 2016-08-23 07:00 | NUR ---
RECIVED PT ON VENT WITH SETTINGS CHARTED BREATH SOUNDS PRESENT BILAT COARSE SXN PT WITH YELLOW SECS PT WITH TRACH PORTEX #8 CHECKED CANULA ALL CLEAR VENT PLUGGED INTO RED OUTLET AMBU BAG AT BEDSIDE
[2016-08-23] MEDS: ALBUTEROL SULFATE/IPRATROPIU 3 ML SOL IH SCH ×4 (07:09→19:36)
--- NOTE | 2016-08-23 07:20 | NUR ---
RECEIVED PATIENT ON BED.INITIAL ASSESSMENT DONE TO PATIENT.TRACHE TO VENT WITH VENT SETTING FOLLOWS.AC=10,TI=204,FIO2=30 PERCENT.PEEP=5.NO SIGNS OF RESPIRATORY DISTRESS.OLIVARES TO GRAVITY.GTUBE FEEDING WITH FIBERSOURCE AT 50 ML/H.NO RESIDUAL NOTED.NSR.WILL MONITOR.
[2016-08-23] MEDS: VANCOMYCIN 1GM/DEXT 5% PREMIX 200 ML IV SCH ×2 (09:19→20:34)
[2016-08-23] MEDS: VALSARTAN 80 MG TAB GT SCH (09:20)
[2016-08-23] MEDS: FERROUS SULFATE 300 MG/5 ML UDC GT SCH ×2 (09:20→20:36)
[2016-08-23] MEDS: LACTOBACILLUS RHAMNOSUS GG 1 EACH CAP GT SCH ×2 (09:20→20:35)
[2016-08-23] MEDS: MULTIVITAMIN 5 ML ORASYR GT SCH (09:20)
[2016-08-23] MEDS: PHENYTOIN 100 MG/4 ML UDC GT SCH ×2 (09:21→20:37)
[2016-08-23] MEDS: levETIRAcetam 100 MG/ML ORASYR GT SCH ×2 (09:21→20:37)
[2016-08-23] MEDS ORDERED: MAGNESIUM OXIDE 400 MG TAB GT SCH (09:30)
--- NOTE | 2016-08-23 11:30 | NUR ---
INCREASE TUBE FEEDING TO 60 ML/H as ordered.
--- NOTE | 2016-08-23 12:09 | NUR ---
08/23/16 RD FOLLOW UP COMPLETED PLEASE REFER TO NUTRITION ASSESSMENT UNDER CARE ACTIVITY FOR ESTIMATED NUTRITIONAL NEEDS. RD RECOMMENDATIONS: 1. CONTINUE FIBERSOURCE AT 40 ML/HR AND ADVANCE TOLERATED 10 ML Q4H TO GOAL OF 70 ML/HR WITH FREE WATER FLUSH 50 ML Q6H AND PROSURCE BID VIA GTUBE. --AT GOAL OF 70 ML/HR THIS IS ADEQUATE TO MEET 100% OF PT ESTIMATED KCAL AND PROTEIN NEEDS DAILY 2. RD WILL F/U 2-3 DAYS; HIGH RISK. HYACINTH KHAN RD
--- NOTE | 2016-08-23 13:41 | NUR ---
SS NOTE: SENT CURRENT MICROBIOLOGY TO [facility], RECEIVED FAX CONFIRMATION
--- NOTE | 2016-08-23 17:20 | NUR ---
CONTINUED TO MONITOR PT ON VENT WITH SETTINGS CHARTED BREATHS SOUNDS PRESENT VENT PLUGGED INTO RED OUTLET AMBU BAG AT BEDSIDE
--- NOTE | 2016-08-23 17:30 | NUR ---
INCREASE TUBE FEEDING TO 70 ML/H ORDERED.
--- NOTE | 2016-08-23 19:23 | NUR ---
REPORT GIVEN TO MARCIAL ENRIQUE FOR CONTINUITY OF CARE
--- NOTE | 2016-08-23 20:00 | NUR ---
AWAKE, DOES NOT FOLLOW COMMANDS, SR ON THE MONITOR, TRACHE TO VENT, TLC ON LIJ PATENT AND INTACT, ON COMNTACT ISOLATION, OLIVARES CATH DRAINING CLEAR YELLOW URINE WITH SMALL SEDIMENTS, GT FEEDING TOLERATING WELL, NO RESIDUAL, HOB ELEVATED, TURNED AND REPOSITIONED, FLACC 0.
[2016-08-23] MEDS: MONTELUKAST SODIUM 10 MG TAB PO SCH (20:35)
[2016-08-23] MEDS: MUPIROCIN 2% OINT 22 GM TUBE TP SCH (20:38)
[2016-08-23] MEDS: CHLORHEXADINE GLUC 2% CLOTH TP SCH (20:38)
--- NOTE | 2016-08-23 22:00 | NUR ---
TURNED AND REPOSITIONED, SUCTIONED WITH SMALL WHITE SECRETIONS, FLACC 0.
[2016-08-23] MEDS: NACL 0.9% 1,000 ML IV SCH (23:47)
[2016-08-24] VITALS (23 sets, daily range): BP systolic 88–165; BP diastolic 51–109
--- NOTE | 2016-08-24 | NUR ---
SUCTIONED ORALLY, ORAL CARE WITH VAP KIT PROVIDED, NO DISTRESS.
--- NOTE | 2016-08-24 04:00 | NUR ---
PATIENT HAS MODERATE AMOUNT OF GREENISH STOOL, WASHED AND CLEANED, ORAL CARE WITH VAP KIT PROVIDED, FLACC 0, NO SOB.
[2016-08-24] MEDS: PIPERACILLIN/TAZOBACTAM 4.5 GM in DEXTROSE 5% 100 ML IV SCH (05:28)
--- NOTE | 2016-08-24 06:00 | NUR ---
AM CARE PROVIDED, GT FEEDING TOLERATED WELL, NO RESPIRATORY DISTRESS, TURNED AND REPOSITIONED, FLACC 0.
[2016-08-24] MEDS: LANSOPRAZOLE 30 MG CAPDR PO SCH (06:10)
[2016-08-24] MEDS: METOCLOPRAMIDE 10 MG/10 ML SYRP UDC GT SCH ×3 (06:10→16:24)
[2016-08-24] MEDS: ALBUTEROL SULFATE/IPRATROPIU 3 ML SOL IH SCH ×4 (06:51→18:56)
[2016-08-24] MEDS ORDERED: VANCOMYCIN PER PHARMACY MC PRN ×2 (07:00→10:20)
--- NOTE | 2016-08-24 07:18 | NUR ---
RECEIVED REPORT FROM ADAL CEJA. NO SIGNS OF ACUTE DISTRESS AT THIS TIME, FLACC 0. TRACH TO VENT. FIO2: 30%, AC: 10, TV: 500, PEEP: 5. LEFT IJ X3 LUMEN IN PLACE, ALL PORTS PATENT AND INTACT. WOUND NOTED TO SACRUM. G TUBE IN PLACE TO TUBE FEEDING. NO RESIDUAL NOTED. OLIVARES CATHETER IN PLACE DRAINING TO GRAVITY DRAINAGE BAG. PT IS ON CONTACT ISOLATION WITH SIGNS POSTED OUTSIDE OF PT'S ROOM. SAFETY PRECAUTIONS IN PLACE WITH BED IN LOWEST POSITION AND SIDE RAILS UP. PT IS CURRENTLY SINUS RHYTHM ON THE MONITOR. WILL CONTINUE TO MONITOR.
--- NOTE | 2016-08-24 07:22 | NUR ---
recived pt on vent with settings as charted breath sounds present bilat coarse sxn pt with mod amt off white secs vent plugged into red outlet ambu bag at bedside
[2016-08-24] MEDS: BLOOD GLUCOSE MONITORING 1 DEV DEV FS SCH ×4 (07:30→21:27)
--- NOTE | 2016-08-24 08:00 | NUR ---
DR. PADILLA'S GROUP IN TO SEE PT. WILL FOLLOW UP ON ORDERS.
[2016-08-24] MEDS: levETIRAcetam 100 MG/ML ORASYR GT SCH ×2 (08:41→21:13)
[2016-08-24] MEDS: VALSARTAN 80 MG TAB GT SCH (08:41)
[2016-08-24] MEDS: SULFAMETH/TRIMETH DS 800/160MG 1 TAB PO SCH (08:42)
[2016-08-24] MEDS: PHENYTOIN 100 MG/4 ML UDC GT SCH ×2 (08:42→21:14)
[2016-08-24] MEDS: LACTOBACILLUS RHAMNOSUS GG 1 EACH CAP GT SCH ×2 (08:42→21:12)
[2016-08-24] MEDS: MULTIVITAMIN 5 ML ORASYR GT SCH (08:43)
[2016-08-24] MEDS: FERROUS SULFATE 300 MG/5 ML UDC GT SCH ×2 (08:43→21:14)
[2016-08-24] MEDS: VANCOMYCIN 1GM/DEXT 5% PREMIX 200 ML IV SCH (08:44)
--- NOTE | 2016-08-24 09:01 | NUR ---
CHECKED TUBE FEEDING RESIDUAL: NONE NOTED. ADMINISTERED MEDICATION ORDERED. PT TOLERATED WELL.
[2016-08-24] MEDS: MAGNESIUM OXIDE 400 MG TAB GT SCH ×2 (09:38→21:13)
--- NOTE | 2016-08-24 10:05 | NUR ---
DR. SEAMAN IN TO SEE PT. WILL FOLLOW UP ON ORDERS.
--- NOTE | 2016-08-24 10:13 | NUR ---
SPOKE WITH DR. MAYFIELD. INFORMED OF ELEVATED WBC: 32.6. WILL FOLLOW UP ON ORDERS.
--- NOTE | 2016-08-24 10:38 | NUR ---
SS NOTE: PER ERMA FROM [facility] ([phone]), PT CAN GO TO ROOM 24A UNDER DR. GAYLA SOSA WHEN PT IS READY FOR DISCHARGE.
[2016-08-24] MEDS: ONDANSETRON 4 MG/2 ML VIAL IVP PRN ×3 (11:16→11:20)
--- NOTE | 2016-08-24 11:23 | NUR ---
PT HAD MODERATE EMESIS, YELLOW IN COLOR. ADMINISTERED ZOFRAN ORDERED PRN. PT TOLERATED WELL. WILL CONTINUE TO MONITOR.
--- NOTE | 2016-08-24 11:30 | NUR ---
PT WITH MODERATE AMT GOLD EMESIS RN AWARE
[2016-08-24] MEDS ORDERED: PIPERACILLIN/TAZOBACTAM 4.5 GM in DEXTROSE 5% 100 ML IV SCH (12:00)
[2016-08-24] MEDS ORDERED: PIPER/TAZO 3.375GM/D5W PREMIX 50 ML IV SCH (12:00)
[2016-08-24] MEDS: MEROPENEM 1,000 MG in NACL 0.9% 100 ML IV SCH ×2 (12:11→21:15)
--- NOTE | 2016-08-24 12:42 | NUR ---
CHECKED TUBE FEEDING RESIDUAL: NONE NOTED. ADMINISTERED MEDICATION ORDERED. PT TOLERATED WELL.
--- NOTE | 2016-08-24 13:05 | NUR ---
HAD MODERATE AMT. YELLOWISH EMESIS. SUCTIONED ORALLY AND VIA TRACH. HOB ELEVATED.
--- NOTE | 2016-08-24 13:10 | NUR ---
DR. ORO NOTIFIED OF VOMITING.
--- NOTE | 2016-08-24 13:12 | NUR ---
GT RESIDUAL CHECKED. 0 RES.
--- NOTE | 2016-08-24 13:25 | NUR ---
PT STILL WITH MOD AMT GOLD EMESIS RN AWARE
--- NOTE | 2016-08-24 13:26 | NUR ---
PT CONTINUES TO HAVE MODERATE EMESIS, YELLOW IN COLOR. HELD TUBE FEEDING AT THIS TIME.
--- NOTE | 2016-08-24 13:57 | NUR ---
INCREASED FIO2 TO 100% PT DESATURATING RN AWARE
--- NOTE | 2016-08-24 13:59 | NUR ---
PT PROJECTILE VOMITING LARGE AMOUNT OF YELLOW EMESIS. NGT INSERTED ORDERED TO RIGHT NARE, OUTPUT OF 400ML FROM NGT, 750ML OUTPUT FROM G TUBE. AWAITING CONFIRMATION OF PLACEMENT FROM XRAY AT THIS TIME. DR. XAVIER AWARE OF PT'S ELEVATED HR, AND DESAT TO MID 80'S.
--- NOTE | 2016-08-24 14:51 | NUR ---
PT HAD LARGE BOWEL MOVEMENT, SOFT AND DARK GREEN IN COLOR. PROVIDED HYGIENE CARE. TURNED AND REPOSITIONED FOR COMFORT. WILL CONTINUE TO MONITOR.
--- NOTE | 2016-08-24 15:18 | NUR ---
CHECKED TEMP: 101.4. COOLING MEASURES IN PLACE, WILL ADMINISTER TYLENOL ORDERED PRN.
--- NOTE | 2016-08-24 16:09 | NUR ---
RECHECKED TEMP: 99.9. WILL CONTINUE TO MONITOR.
--- NOTE | 2016-08-24 16:24 | NUR ---
PER DR. XAVIER, HOLD GT TUBE AT THIS TIME.
[2016-08-24] MEDS ORDERED: METOCLOPRAMIDE 10 MG/2 ML INJ VIAL IVP PRN (16:30)
--- NOTE | 2016-08-24 17:14 | NUR ---
DR. FOY IN TO SEE PT. WILL FOLLOW UP ON ORDERS.
[2016-08-24] MEDS ORDERED: NACL 0.9% 1,000 ML IV SCH (17:32)
--- NOTE | 2016-08-24 17:34 | NUR ---
CONTINUED TO MONITOR PT ON VENT WITH SETTINGS CHARTED BREATH SOUNDS PRESENT BILAT COARSE SXN PT WITH MO AMT OFF WHITE SECS VENT PLUGGED INTO RED OUTLET AMBU BAG AT BEDSIDE
--- NOTE | 2016-08-24 17:37 | NUR ---
DECREASED PT TO .40 RN AWARE
--- NOTE | 2016-08-24 19:10 | NUR ---
ENDORSED CARE TO ADAL BAILEY. PT IN STABLE CONDITION.
--- NOTE | 2016-08-24 19:20 | NUR ---
RECEIVED REPORT FROM DAY NURSE ADAL HORTON AT PATIENT BEDSIDE. PT OPENS EYES SPONTANEOUSLY, TRACH TO VENT WITH CURRENT SETTINGS AT FIO2 40%, TV 500, AC 10, PEEP OF 5 WITH NO S/S OF ACUTE RESP DISTRESS NOTED AT THIS TIME. PT IS CURRENTLY NPO AND HAS NG-TUBE TO RIGHT NARE CONNECTED TO LOW INTERMITTENT SUCTION. PT HAS LEFT IJ TLC RUNNING NS AT 100ML/HR AT THIS TIME AND GOOD BLOOD RETURN NOTED TO ALL PORTS. CASKET ASSEMBLER METAL SHOWS SINUS TACH AT THIS TIME AT A RATE OF 121. PT HAS G-TUBE CONNECTED TO DRAINAGE BAG DRAINING VIA GRAVITY AT THIS TIME. PT HAS OLIVARES CATHETER IN PLACE DRAINING YELLOW URINE. WOUND TO SACRUM AREA NOTED. BED IN LOW POSITION, HOB UP, CONTACT AND SAFETY PRECAUTIONS MAINTAINED, WILL CONTINUE TO CLOSELY MONITOR.
[2016-08-24] MEDS: COLISTIMETHATE SODIUM 150 MG in NACL 0.9% 100 ML IV SCH (20:16)
--- NOTE | 2016-08-24 20:31 | NUR ---
DR MAYFIELD HERE ON UNIT TO SEE PATIENT AT BEDSIDE. PER DR MAYFIELD, PT STATUS TO CHANGE FROM NPO TO NPO EXCEPT MEDS. STATED PT NEEDS TO RECEIVE ALL HIS MEDS TONIGHT.
[2016-08-24] MEDS ORDERED: VANCOMYCIN 1GM/DEXT 5% PREMIX 200 ML IV SCH (21:00)
[2016-08-24] MEDS ORDERED: CHLORHEXADINE GLUC 2% CLOTH TP SCH (21:00)
[2016-08-24] MEDS: MONTELUKAST SODIUM 10 MG TAB PO SCH (21:12)
[2016-08-24] MEDS: MUPIROCIN 2% OINT 22 GM TUBE TP SCH (21:15)
[2016-08-24] MEDS: NACL 0.9% 1,000 ML IV SCH (22:00)
[2016-08-25] VITALS (24 sets, daily range): BP systolic 88–132; BP diastolic 42–82
--- NOTE | 2016-08-25 00:13 | NUR ---
PT TURNED, REPOSITIONED, VAP ORAL KIT PROVIDED. NO FEVER NOTED, NO SOB NOTED AT THIS TIME. WILL CONTINUE TO CLOSELY MONITOR.
--- NOTE | 2016-08-25 02:38 | NUR ---
PT RESTING IN BED. CONTACT PRECAUTIONS MAINTAINED, SAFETY PRECAUTIONS MAINTAINED, NO S/S OF DISCOMFORT OR ACUTE RESP DISTRESS NOTED AT THIS TIME WILL CONTINUE TO CLOSELY MONITOR.
[2016-08-25] MEDS: MEROPENEM 1,000 MG in NACL 0.9% 100 ML IV SCH ×3 (04:46→21:27)
--- NOTE | 2016-08-25 05:05 | NUR ---
MORNING CARE RENDERED, PT CLEANED, LINEN CHANGED, WOUND DRESSING CHANGED. VAP ORAL KIT PROVIDED, PT TURNED AND REPOSITIONED. NO S/S OF ACUTE DISCOMFORT OR RESP DISTRESS AT THIS TIME. WILL CONTINUE TO MONITOR.
[2016-08-25] MEDS: LANSOPRAZOLE 30 MG CAPDR PO SCH (06:32)
--- NOTE | 2016-08-25 06:42 | NUR ---
PT RESTING IN BED. NO SOB NOTED AT THIS TIME. WILL CONTINUE TO MONITOR.
[2016-08-25] MEDS: ALBUTEROL SULFATE/IPRATROPIU 3 ML SOL IH SCH ×4 (06:52→19:19)
--- NOTE | 2016-08-25 06:52 | NUR ---
REC'D PT ON CARESCAPE VENT SETTINGS AC10 VT 500 PEEP 5 FIO2 30% ALARMS ON AND FUNCTIONING PROPERLY, AMBU BAG AT SIDE OF VENTILATOR AND VENTILATOR IS PLUGGED INTO RED OUTLET, I\L TX GIVEN WITH DUONEB 3ML WITH NO ADVERSE REACTION POST TX, B\S ARE RHONCHI BILATERALLY, SXN PT MODERATE AT OF THICK YELLOW SECRETIONS, PT IS TRACH WITH PORTEX 8 AND SKIN INTEGRITY IS INTACT
--- NOTE | 2016-08-25 07:08 | NUR ---
RESIDENTS DR XAVIER AND DR FRIEND AT BEDSIDE TO SEE PATIENT.
--- NOTE | 2016-08-25 07:15 | NUR ---
ENDORSED PLAN OF CARE TO DAY NURSE ADAL HOLLOWAY AT PATIENT BEDSIDE.
--- NOTE | 2016-08-25 07:15 | NUR ---
RECEIVED REPORT FROM ADAL BAILEY AT PATIENT BEDSIDE. PT OPENS EYES SPONTANEOUSLY, PERRL, NON-VERBAL, NOT ABLE TO FOLLOW COMMANDS, TRACH TO VENT WITH FIO2 30%, TV 500, AC 10, PEEP 5, NO S/S OF ACUTE RESP DISTRESS NOTED AT THIS TIME, CLEAR LUNG SOUNDS. ST ON AUTOMATIC SILK SCREEN PRINTER, GENERALIZED EDEMA NOTED. SOFT ABD WITH ACTIVE BOWL SOUNDS, CURRENTLY ON NPO EXCEPT MEDS, HAS G-TUBE CONNECTED TO DRAINAGE BAG DRAINING VIA GRAVITY, HAS NG-TUBE TO RIGHT NARE CONNECTED TO LOW INTERMITTENT SUCTION, NO GASTRIC CONTENTS AT THIS TIME, PLACEMENT CHECKED WITH TWO RNS, NOT INPLACE, FOUND THE TIP OF NGT CURLING IN THE MOUTH, REMOVED THE NGT, INSERTED NEW NGT TO LEFT NARE WITH POSITIVE PLACEMENT CONFIRMED WITH 2 RNS, 0 RESIDUAL AT THIS TIME. PT HAS LEFT IJ TLC RUNNING NS AT 100ML/HR AND GOOD BLOOD RETURN NOTED TO ALL PORTS. PT HAS OLIVARES CATHETER IN PLACE DRAINING CLEAR DARK YELLOW URINE TO GRAVITY. AFEBRILE, SKIN IS WARM AND DRY TO TOUCH, OPEN WOUND TO SACRUM AREA (SEE WOUND ASSESSMENT), SCD'S ON BLE. ASPIRATION PRECAUTION AND SAFETY PRECAUTIONS MAINTAINED, POSITION CHANGED FOR OFF LOAD PRESSURE, ORAL CARE PROVIDED, PT TOLERATED WELL, VSS, WILL CONTINUE TO CLOSELY MONITOR.
[2016-08-25] MEDS: BLOOD GLUCOSE MONITORING 1 DEV DEV FS SCH ×4 (07:30→21:26)
[2016-08-25] MEDS: METOCLOPRAMIDE 10 MG/10 ML SYRP UDC GT SCH ×3 (07:30→16:37)
--- NOTE | 2016-08-25 08:41 | NUR ---
VENT CHECK, NO SXN REQUIRED AT THIS TIME, AIRWAY IS PATENT AND PT IS RESTING WITH NO SIGNS OF DISTRESS NOTED
[2016-08-25] MEDS: LACTOBACILLUS RHAMNOSUS GG 1 EACH CAP GT SCH ×2 (08:43→20:43)
[2016-08-25] MEDS: levETIRAcetam 100 MG/ML ORASYR GT SCH ×2 (08:43→20:43)
[2016-08-25] MEDS: FERROUS SULFATE 300 MG/5 ML UDC GT SCH ×2 (08:43→20:44)
[2016-08-25] MEDS: NACL 0.9% 1,000 ML IV SCH ×2 (08:44→19:36)
[2016-08-25] MEDS: MULTIVITAMIN 5 ML ORASYR GT SCH (08:44)
[2016-08-25] MEDS: PHENYTOIN 100 MG/4 ML UDC GT SCH ×2 (08:44→20:44)
[2016-08-25] MEDS: VALSARTAN 80 MG TAB GT SCH (08:45)
[2016-08-25] MEDS: COLISTIMETHATE SODIUM 150 MG in NACL 0.9% 100 ML IV SCH ×2 (09:00→20:42)
--- NOTE | 2016-08-25 09:00 | NUR ---
SCHEDULED MEDICATION GIVEN, PT TOLERATED WELL.
--- NOTE | 2016-08-25 10:00 | NUR ---
NO CHANGE OF CONDITION AT THIS TIME, POSITION CHANGED FOR OFF LOAD PRESSURE, VSS.
[2016-08-25] MEDS ORDERED: MAGNESIUM CITRATE 300 ML BTL PO SCH (10:14)
--- NOTE | 2016-08-25 10:40 | NUR ---
STARTED G-TUBE FEEDING ORDERED AT 20ML/HR, WATER FLUSH 50ML Q6HR.
--- NOTE | 2016-08-25 10:51 | NUR ---
VENT CHECK, SXN PT MODERATE AMT OF YELLOW SECRETIONS, PT IS RESTING WITH NO SIGNS OF DISTRESS NOTED Addendum: 08/25/16 at 1534 by Julia Chaney RT NO HHN GIVEN AT THIS TIME
--- NOTE | 2016-08-25 11:30 | NUR ---
DR. CORTES AND DR. XAVIER CAME TO EVALUATE PT, NEW ORDER OBTAINED AND CARRIED OUT.
--- NOTE | 2016-08-25 11:40 | NUR ---
RD CAME TO EVALUATE PT AT BEDSIDE.
--- NOTE | 2016-08-25 11:50 | NUR ---
REMOVED NGT ORDERED. PT TOLERATED WELL.
--- NOTE | 2016-08-25 12:00 | NUR ---
ORAL CARE PROVIDED WITH VAP ORAL KIT, POSITION CHANGED FOR OFF LOAD PRESSURE, VSS.
--- NOTE | 2016-08-25 13:29 | NUR ---
VENT CHECK, SXN PT SMALL AMT OF YELLOW SECRETIONS PT IS RESTING WITH NO SIGNS OF DISTRESS NOTED AT THIS TIME
--- NOTE | 2016-08-25 14:00 | NUR ---
NO CHANGE OF CONDITION AT THIS TIME, VSS. POSITION CHANGED FOR OFF LOAD PRESSURE.
--- NOTE | 2016-08-25 15:22 | NUR ---
08/25/16 RD FOLLOW UP COMPLETED PLEASE REFER TO NUTRITION PROGRESS NOTE UNDER CARE ACTIVITY FOR ESTIMATED NUTRITION NEEDS. RD RECOMMENDATIONS: 1. CONTINUE NPO MEDICALLY APPROPRIATE. 2. IF/WHEN PT IS MEDICALLY STABLE TO BEGIN NUTRITION SUPPORT, CONSIDER NUTREN PULMONARY AT 60 ML PLUS PROSOURCE BID D/T PT ON TRACH TO VENT AND PT WITH SEPSIS WITH WATER FLUSH PER MD D/T PT WITH GENERAL EDEMA. --AT GOAL RATE, NUTREN PULMONARY WILL PROVIDE 1440 ML TOTAL VOLUME, 2240 KCAL, 90 GM PROTEIN, AND 1126 ML FREE WATER. AT GOAL RATE, TUBE FEEDING IS ADEQUATE TO MEET 100% OF PT ESTIMATED KCAL NEEDS AND 87% OF PT ESTIMATED PROTEIN NEEDS. 3. RD WILL F/U 2-3 DAYS; HIGH RISK. RADHAMES ACEVEDO, RD
--- NOTE | 2016-08-25 15:27 | NUR ---
VENT CHECK, I\L TX GIVEN WITH DUONEB 3ML WITH NO ADVERSE REACTION POST TX B\S RHONCHI SXN PT LARGE AMT OF YELLOW SECRETIONS, TRACH CARE DONE:CHANGED TRACH TIE AND GAUZE AND INNER CANNULA
--- NOTE | 2016-08-25 16:00 | NUR ---
AM CARE PROVIDED, ORAL CARE PROVIDED, POSITION CHANGED FOR OFF LOAD PRESSURE, VSS, WILL CONTINUE TO MONITOR.
--- NOTE | 2016-08-25 17:00 | NUR ---
PT HAD A LARGE AMOUNT OF BLACK GREENISH LIQUID STOOL, [place] CARE PROVIDED. VSS.
--- NOTE | 2016-08-25 17:04 | NUR ---
VENT CHECK, NO SXN REQUIRED AT THIS TIME, AIRWAY IS PATENT AND RN LIZETH AND RN JEWLE AT BEDSIDE CLEANING PT
[2016-08-25] MEDS: LORazepam 2 MG/ML VIAL IVP PRN (17:40)
--- NOTE | 2016-08-25 17:40 | NUR ---
FOCAL SEIZURE WITH EYE TWITCHING FOR 45 SEC, ATIVAN GIVEN, PT RELAXED, TWITCHING EYES RESOLVED.
--- NOTE | 2016-08-25 18:10 | NUR ---
PT HAD A LARGE AMOUNT OF BLACK GREENISH LIQUID STOOL, [place] CARE PROVIDED. VSS. POSITION CHANGED FOR OFF LOAD PRESSURE.
--- NOTE | 2016-08-25 19:03 | NUR ---
DR FOY HERE ON THE UNIT TO SEE THE PATIENT. NO NEW ORDERS AT THIS TIME.
--- NOTE | 2016-08-25 19:08 | NUR ---
REPORT GIVEN TO LEO FOR CONTINUE OF CARE AT BEDSIDE, PT IS STABLE IN CONDITION AT THIS TIME, VSS.
--- NOTE | 2016-08-25 19:13 | NUR ---
RECEIVED REPORT FROM DAY NURSE ADAL HOLLOWAY AT PATIENT BEDSIDE. PT OPENS EYES SPONTANEOUSLY, PT IS TRACH TO VENT WITH CURRENT SETTINGS AT FIO2 30%, TV 500, AC 10, PEEP OF 5 WITH NO S/S OF ACUTE RESPIRATORY DISTRESS NOTED AT THIS TIME. PT HAS G-TUBE RUNNING FIBERSOURCE AT 20ML/HR AT THIS TIME WITH 0 GASTRIC RESIDUAL ASPIRATED. PT HAS LEFT IJ TLC RUNNING NS AT 100ML/HR AT THIS TIME AND GOOD BLOOD RETURN NOTED TO ALL PORTS. SPEECH AND LANGUAGE CLINICIAN SHOWS SINUS TACH AT THIS TIME AT A RATE OF 103. PT HAS OLIVARES CATHETER IN PLACE DRAINING YELLOW URINE. WOUND TO SACRUM AREA NOTED COVERED BY DRESSING. SCDS IN PLACE, BED IN LOW POSITION, HOB UP, CONTACT AND SAFETY PRECAUTIONS MAINTAINED, WILL CONTINUE TO CLOSELY MONITOR.
--- NOTE | 2016-08-25 19:19 | NUR ---
RECEIVED PT ON CARESCAPE ON A/C 10 VT 500 PEEP5 FIO2 30 ALARMS ARE ON AND FUNCTIONAL BMV HOB PTS TRACH PORTEX 8 IS SECURE PT IN HF NOT ALERT BS COARSE I\L LAVAGE AND SX COPIOUS YELLOW HHN GIVEN I\L WITH 3 MG DUONEB VENT PLUGGED INTO RED OUTLET
[2016-08-25] MEDS: MONTELUKAST SODIUM 10 MG TAB PO SCH (20:43)
--- NOTE | 2016-08-25 21:14 | NUR ---
PT HAD A SMALL AMOUNT OF SOFT GREENISH BLACK BM. PT CLEANED. LINEN CHANGED. NO SOB NOTED AT THIS TIME. WILL CONTINUE TO MONITOR.
--- NOTE | 2016-08-25 21:20 | NUR ---
VENT CHECK BS COARSE I\L LAVAGE AND SX MOD YELLOW
[2016-08-26] VITALS (25 sets, daily range): BP systolic 96–138; BP diastolic 53–112
--- NOTE | 2016-08-26 00:15 | NUR ---
PT TURNED AND REPOSITIONED. ORAL CARE GIVEN VIA VAP KIT. NO S/S OF DISCOMFORT AT THIS TIME. NO S/S OF ACUTE RESP DISTRESS NOTED AT THIS TIME. CONTACT PRECAUTIONS MAINTAINED, SAFETY PRECAUTIONS MAINTAINED. WILL CONTINUE TO CLOSELY MONITOR.
--- NOTE | 2016-08-26 01:39 | NUR ---
REC'D PT ON CARESCAPE VENT SETTING AC10 VT 500 PEEP 5 FIO2 30% ALARMS ON AND FUNCTIONING PROPERLY, AMBU BAG AT SIDE OF VENT AND VENT IS PLUGGED INTO RED OUTLET, B\S ARE COARSE BILATERALLY, SXN PT MODERATE AMT OF THICK YELLOW SECRETIONS, PT IS TRACH WITH PORTEX 8 AND SKIN INTEGRITY IS INTACT
--- NOTE | 2016-08-26 02:41 | NUR ---
PT RESTING IN BED. NO SOB NOTED AT THIS TIME. WILL CONTINUE TO CLOSELY MONITOR.
--- NOTE | 2016-08-26 03:11 | NUR ---
VENT CHECK, NO SXN REQUIRED AT THIS TIME AIRWAY IS PATENT
[2016-08-26] MEDS: MEROPENEM 1,000 MG in NACL 0.9% 100 ML IV SCH ×3 (04:26→20:25)
--- NOTE | 2016-08-26 04:54 | NUR ---
MORNING CARE RENDERED. PT HAD LARGE AMOUNT OF GREENISH-BLACK BM. PT CLEANED, LINEN CHANGED. ORAL VARE PROVIDED VIA VAP KIT. NO SOB NOTED. PT TURNED, REPOSITIONED. NO SIGNS OF DISCOMFORT. SAFETY PRECAUTIONS STILL MAINTAINED. WILL CONTINUE TO CLOSELY MONITOR.
--- NOTE | 2016-08-26 05:12 | NUR ---
VENT CHECK, SXN PT SMALL AMT OF YELLOW SECRETIONS B\S ARE COARSE CHANGED HME PT IS SLEEPING
[2016-08-26] MEDS: NACL 0.9% 1,000 ML IV SCH ×2 (05:21→08:00)
[2016-08-26] MEDS: LANSOPRAZOLE 30 MG CAPDR PO SCH (05:39)
[2016-08-26] MEDS: ALBUTEROL SULFATE/IPRATROPIU 3 ML SOL IH SCH ×4 (06:45→20:06)
--- NOTE | 2016-08-26 06:51 | NUR ---
PT RESTING IN BED. NO S/S OF ACUTE RESP DISTRESS NOTED AT THIS TIME. WILL CONTINUE TO MONITOR CLOSELY.
--- NOTE | 2016-08-26 07:04 | NUR ---
ENDORSED PLAN OF CARE TO DAY NURSE ADAL HOLLOWAY FOR CONTINUATION OF CARE. PT STABLE AT THIS TIME.
--- NOTE | 2016-08-26 07:05 | NUR ---
RECEIVED REPORT FROM LEO RN AT PATIENT BEDSIDE. PT OPENS EYES SPONTANEOUSLY, PERRL, NON-VERBAL, NOT ABLE TO FOLLOW COMMANDS, TRACH TO VENT WITH FIO2 30%, TV 500, AC 10, PEEP 5, NO S/S OF ACUTE RESP DISTRESS NOTED AT THIS TIME, CLEAR LUNG SOUNDS. SR ON SUPERVISOR MOLD CLEANING AND STORAGE, GENERALIZED EDEMA NOTED. SOFT ABD WITH ACTIVE BOWL SOUNDS, G-TUBE PATENT, FEEDING WITH FIBERSOURCE AT 20ML/HR, 0 RESIDUAL AT THIS TIME. CENTRAL LINE TO LEFT IJ TLC RUNNING NS AT 100ML/HR, NO BLOOD RETURN NOTED TO BLUE AND BROWN PORTS. OLIVARES CATHETER IN PLACE DRAINING CLEAR DARK YELLOW URINE TO GRAVITY. AFEBRILE, SKIN IS WARM AND DRY TO TOUCH, OPEN WOUND TO SACRUM AREA (SEE WOUND ASSESSMENT), SCD'S ON BLE. ASPIRATION PRECAUTION AND SAFETY PRECAUTIONS MAINTAINED, ORAL CARE PROVIDED, PT TOLERATED WELL, VSS, WILL CONTINUE TO CLOSELY MONITOR.
[2016-08-26] MEDS: BLOOD GLUCOSE MONITORING 1 DEV DEV FS SCH ×4 (07:18→21:32)
--- NOTE | 2016-08-26 07:30 | NUR ---
RECEIVED REPORT FROM ADAL HOLLOWAY AT PATIENT BEDSIDE. PT OPENS EYES SPONTANEOUSLY, NON-VERBAL, UNABLE TO FOLLOW SIMPLE COMMANDS, BEDSIDE MONITOR SHOWS SR. TRACH TO VENT WITH FIO2 30%, TV 500, AC 10, PEEP 5, NO S/S OF RESP DISTRESS NOTED AT THIS TIME, SOFT ABDOMEN WITH ACTIVE BOWL SOUNDS, G-TUBE PATENT, FEEDING WITH FIBERSOURCE AT 25ML/HR, NO RESIDUAL AT THIS TIME. OLIVARES CATHETER IN PLACE DRAINING WITH SMALL AMOUNT OF CLEAR YELLOW URINE TO GRAVITY. CENTRAL LINE TO LEFT IJ TLC RUNNING 0.9 %NS AT 100ML/HR, NO BLOOD RETURN NOTED TO BLUE AND BROWN PORTS. GENERALIZED EDEMA NOTED. NO FEVER, SKIN IS WARM AND DRY TO TOUCH, NON INTACT(SEE WOUND ASSESSMENT), SCD'S IN PLACE. ASPIRATION PRECAUTION AND SAFETY PRECAUTIONS IN PLACE, ORAL CARE GIVEN, WILL CONTINUE TO CLOSELY MONITOR. Addendum: 08/26/16 at 2002 by Tess Gillespie RN [phone] INSTEAD OF [phone]
[2016-08-26] MEDS: METOCLOPRAMIDE 10 MG/10 ML SYRP UDC GT SCH ×3 (07:40→16:19)
--- NOTE | 2016-08-26 08:00 | NUR ---
PT HAD A MODERATE LIQUID BLACK GREENISH STOOL, [place] CARE PROVIDED, POSITION CHANGED FOR OFF LOAD PRESSURE, VSS.
[2016-08-26] MEDS: LACTOBACILLUS RHAMNOSUS GG 1 EACH CAP GT SCH ×2 (08:53→20:24)
[2016-08-26] MEDS: COLISTIMETHATE SODIUM 150 MG in NACL 0.9% 100 ML IV SCH ×2 (08:54→21:46)
[2016-08-26] MEDS: PHENYTOIN 100 MG/4 ML UDC GT SCH ×2 (08:54→20:23)
[2016-08-26] MEDS: FERROUS SULFATE 300 MG/5 ML UDC GT SCH ×2 (08:54→20:23)
[2016-08-26] MEDS: levETIRAcetam 100 MG/ML ORASYR GT SCH ×2 (08:54→20:22)
[2016-08-26] MEDS: MULTIVITAMIN 5 ML ORASYR GT SCH (08:54)
[2016-08-26] MEDS: VALSARTAN 80 MG TAB GT SCH (08:55)
--- NOTE | 2016-08-26 09:00 | NUR ---
SCHEDULED MEDICATION GIVEN, PT TOLERATED WELL.
--- NOTE | 2016-08-26 09:15 | NUR ---
RECEIVED PT ON [place] ON A/C 10 VT500 PEEP5 FIO2 30 ALARMS ARE ON AND FUNCTIONAL BMV HOB PTS TRACH PORTEX 8 IS SECURE BS CLEAR AIRWAY IS PATENT PT I NHF ASLEEP NO DISTRESS NOTED VENT PLUGGED INTO RED OUTLET
[2016-08-26] MEDS: VANCOMYCIN 750 MG in DEXTROSE 5% 250 ML IV SCH ×2 (09:44→22:31)
--- NOTE | 2016-08-26 10:00 | NUR ---
NO CHANGE OF CONDITION AT THIS TIME, POSITION CHANGED FOR OFF LOAD PRESSURE, VSS.
--- NOTE | 2016-08-26 10:42 | NUR ---
VENT CHECK BS COARSE I\L LAVAGE AND SX LG YELLOW I\L HHN GIVEN WITH 3 MG DUONEB
[2016-08-26] MEDS: LORazepam 2 MG/ML VIAL IVP PRN (10:50)
--- NOTE | 2016-08-26 10:50 | NUR ---
FOCAL SEIZURE WITH EYE TWITCHING FOR 5 SEC, ATIVAN GIVEN, PT RELAXED, TWITCHING EYES RESOLVED.
--- NOTE | 2016-08-26 11:00 | NUR ---
PT TOLERATED WELL ON GT FEEDING, 0 RESIDUAL AT THIS TIME, INCREASED FEEDING RATE TO 25ML/HR ORDER.
--- NOTE | 2016-08-26 11:15 | NUR ---
DR. XAVIER CAME TO EVALUATE PT AT BEDSIDE.
[2016-08-26] MEDS: MAGNESIUM OXIDE 400 MG TAB GT SCH ×2 (11:57→20:23)
[2016-08-26] MEDS ORDERED: POTASSIUM CHLORIDE 20% 40 MEQ/15 ML UDC GT SCH (12:00)
--- NOTE | 2016-08-26 12:00 | NUR ---
NO CHANGE OF CONDITION AT THIS TIME, ORAL CARE PROVIDED, POSITION CHANGED FOR OFF LOAD PRESSURE. VSS.
[2016-08-26] MEDS: Z-GUARD PASTE TP SCH (13:16)
--- NOTE | 2016-08-26 13:51 | NUR ---
VENT CHECK BS COARSE I\L LAVAGE AND SX LG YELLOW
--- NOTE | 2016-08-26 14:00 | NUR ---
NO CHANGE OF CONDITION AT THIS TIME, POSITION CHANGED FOR OFF LOAD PRESSURE. VSS.
--- NOTE | 2016-08-26 15:12 | NUR ---
VENT CHECK BS CIOARSE I\L LAVAGE AND SX MOD YELLOW I\L HHN GIVEN WITH 3 MG DUONEB
--- NOTE | 2016-08-26 16:00 | NUR ---
PT HAD A LIQUID MODERATE BLACK GREENISH STOOL, [facility] CARE PROVIDED, ORAL CARE PROVIDED, PM CARE PROVIDED, PT TOLERATED WELL. VSS.
--- NOTE | 2016-08-26 18:00 | NUR ---
NO CHANGE OF CONDITION AT THIS TIME, VSS, POSITION CHANGED FOR OFF LOAD PRESSURE.
--- NOTE | 2016-08-26 19:30 | NUR ---
REPORT GIVEN TO ADAL STANLEY FOR CONTINUITY OF CARE. PT IS IN STABLE CONDITION, VSS. AT THIS TIME.
--- NOTE | 2016-08-26 19:30 | NUR ---
RECEIVED REPORT FROM ADAL HOLLOWAY AT PATIENT BEDSIDE. PT OPENS EYES SPONTANEOUSLY, NON-VERBAL, UNABLE TO FOLLOW SIMPLE COMMANDS, BEDSIDE MONITOR SHOWS SR. TRACH TO VENT WITH FIO2 30%, TV 500, AC 10, PEEP 5, NO S/S OF RESP DISTRESS NOTED AT THIS TIME, SOFT ABDOMEN WITH ACTIVE BOWL SOUNDS, G-TUBE PATENT, FEEDING WITH FIBERSOURCE AT 25ML/HR, NO RESIDUAL AT THIS TIME. OLIVARES CATHETER IN PLACE DRAINING WITH SMALL AMOUNT OF CLEAR YELLOW URINE TO GRAVITY. CENTRAL LINE TO LEFT IJ TLC RUNNING 0.9 %NS AT 100ML/HR, NO BLOOD RETURN NOTED TO BLUE AND BROWN PORTS. GENERALIZED EDEMA NOTED. NO FEVER, SKIN IS WARM AND DRY TO TOUCH, NON INTACT(SEE WOUND ASSESSMENT), SCD'S IN PLACE. ASPIRATION PRECAUTION AND SAFETY PRECAUTIONS IN PLACE, ORAL CARE GIVEN, WILL CONTINUE TO CLOSELY MONITOR.
--- NOTE | 2016-08-26 20:06 | NUR ---
RECEIVED ON [employer] ([employer]) CARESCAPE R860 VENTILATOR PLUGGED INTO RED OUTLET TOLERATING WELL WITHOUT ADVERSE REACTIONS TO A PORTEX #8 DCT AIRWAY SECURED WITH A MARIA T TRACH TIE CUFF PRESSURE CHECKED FOR MOV AMBU BAG NOTED AT HOB LOC AWAKE NO DISTRESS NOTED BREATH SOUNDS DIFFUSED EXP RHONCHI BILATERAL GOOD CHEST RISE DEEP TRACHEAL SUCTION FOR SMALL THIN YELLOW SECRETIONS AIRWAY PATENT
--- NOTE | 2016-08-26 20:10 | NUR ---
TURNED AND REPOSITIONED PT. PT HAD SMALL AMOUNT OF SOFT GREENISH STOOL, CLEANED PT. NO SOB.
[2016-08-26] MEDS: MONTELUKAST SODIUM 10 MG TAB PO SCH (20:25)
--- NOTE | 2016-08-26 21:31 | NUR ---
ASLEEP RESTING COMFORTABLY BREATH SOUNDS COARSE RHONCHI BILATERAL GOOD CHEST RISE DEEP TRACHEAL SUCTION FOR MODERATE THICK YELLOW SECRETIONS SUCTIONED STOMA DRAINAGE FOR SMALL THIN YELLOW SECRETIONS SUCTIONED ORAL PHARYNGEAL FOR LARGE THIN CLEAR TO YELLOW SECRETIONS AIRWAY PATENT
--- NOTE | 2016-08-26 22:05 | NUR ---
PT RESTING IN BED. NO S/S OF RESPIRATORY DISTRESS NOTED.
--- NOTE | 2016-08-26 23:16 | NUR ---
RESTING WELL NO SOB NOTED BREATH SOUNDS CLEAR BILATERAL WITH GOOD CHEST RISE
--- NOTE | 2016-08-26 23:52 | NUR ---
ENDORSED PT TO MADELYN. VSS.
[2016-08-27] VITALS (24 sets, daily range): BP systolic 100–154; BP diastolic 61–95
--- NOTE | 2016-08-27 | NUR ---
NEURO STATUS REMAINS THE SAME; TURNED AND REPOSITIONED PATIENT.
--- NOTE | 2016-08-27 02:03 | NUR ---
ASLEEP NO RESPIRATORY DISTRESS NOTED BREATH SOUNDS CLEAR BILATERAL GOOD AERATION THROUGHOUT AIRWAY PATENT
--- NOTE | 2016-08-27 03:32 | NUR ---
RESTING COMFORTABLY NO SOB NOTED GOOD CHEST RISE Addendum: 08/27/16 at 0344 by Ed Trimble RT SATURATION 100% ON FIO2 OF 30% TITRATED FIO2 TO 28% IN SCHOOL SUSPENSION COORDINATOR TO NOTIFY RN
[2016-08-27] MEDS: Z-GUARD PASTE TP SCH ×2 (04:00→14:00)
--- NOTE | 2016-08-27 04:00 | NUR ---
MORNING BED BATH DONE; TURNED AND REPOSITIONED PATIENT; KEPT CLEAN AND COMFORTABLE.
--- NOTE | 2016-08-27 04:30 | NUR ---
CENTRAL LINE DRESSING CHANGED.
--- NOTE | 2016-08-27 05:24 | NUR ---
AWAKE STABLE BREATH SOUNDS RHONCHI BILATERAL GOOD CHEST RISE DEEP TRACHEAL SUCTION FOR MODERATE THICK YELLOW SECRETIONS AIRWAY PATENT TRACH DRAIN SPONGE CHANGED
[2016-08-27] MEDS: MEROPENEM 1,000 MG in NACL 0.9% 100 ML IV SCH ×3 (05:53→21:27)
[2016-08-27] MEDS: LANSOPRAZOLE 30 MG CAPDR PO SCH (05:57)
[2016-08-27] MEDS: METOCLOPRAMIDE 10 MG/10 ML SYRP UDC GT SCH ×3 (06:49→16:42)
--- NOTE | 2016-08-27 07:05 | NUR ---
ENDORSED TO AM SHIFT RN FOR CONTINUITY OF CARE.
[2016-08-27] MEDS: ALBUTEROL SULFATE/IPRATROPIU 3 ML SOL IH SCH ×4 (07:09→19:42)
--- NOTE | 2016-08-27 07:09 | NUR ---
REC'D PT ON CARESCAPE VENT SETTINGS AC 10 VT 500 PEEP 5 FIO2 30% ALARMS ON AND FUNCTIONING PROPERLY, AMBU BAG AT SIDE OF VENTILATOR AND VENTILATOR IS PLUGGED INTO RED OUTLET I\L TX GIVEN WITH DUONEB 3ML WITH NO ADVERSE REACTION POST TX B\S ARE RHONCHI BILATERALLY, SXN PT MODERATE AMT OF THIN YELLOW SECRETIONS, PT IS TRACH WITH PORTEX 8 AND SKIN INTEGRITY IS INTACT,
[2016-08-27] MEDS ORDERED: FUROSEMIDE 40 MG/4 ML VIAL IVP SCH (07:17)
[2016-08-27] MEDS: BLOOD GLUCOSE MONITORING 1 DEV DEV FS SCH ×4 (07:45→20:56)
--- NOTE | 2016-08-27 08:00 | NUR ---
OPENS EYES SPONTANEOUSLY BUT DOES NOT FOLLOW COMMANDS. TRACH TO VENT TV 500, FI02 30%, AC 10/MIN, PEEP 5. NO RESP DISTRESS NOTED. SUCTIONED WHITISH SECRETIONS VIA TRACH. IV 0.9 NS INFUSING AT 100 ML/HR VIA LT IJ TLC. GT INTACT. RESIDUAL 0 FIBERSOURCE AT 30 ML/HR.
--- NOTE | 2016-08-27 08:45 | NUR ---
DR. CONTRERAS NOTIFIED OF MAGNESIUM LEVEL.
[2016-08-27] MEDS: levETIRAcetam 100 MG/ML ORASYR GT SCH ×2 (09:11→20:59)
[2016-08-27] MEDS: PHENYTOIN 100 MG/4 ML UDC GT SCH ×2 (09:12→20:58)
[2016-08-27] MEDS: FERROUS SULFATE 300 MG/5 ML UDC GT SCH ×2 (09:12→20:59)
[2016-08-27] MEDS: MULTIVITAMIN 5 ML ORASYR GT SCH (09:13)
[2016-08-27] MEDS: LACTOBACILLUS RHAMNOSUS GG 1 EACH CAP GT SCH ×2 (09:14→20:57)
[2016-08-27] MEDS: VALSARTAN 80 MG TAB GT SCH (09:19)
--- NOTE | 2016-08-27 09:28 | NUR ---
VENT CHECK, NO SXN NEEDED AT THIS TIME, AIRWAY IS PATENT AND ADAL RAMIREZ AT BEDSIDE
[2016-08-27] MEDS: COLISTIMETHATE SODIUM 150 MG in NACL 0.9% 100 ML IV SCH ×2 (09:30→20:59)
[2016-08-27] MEDS: VANCOMYCIN 750 MG in DEXTROSE 5% 250 ML IV SCH ×2 (09:31→22:00)
--- NOTE | 2016-08-27 10:00 | NUR ---
IV RATE DECREASED TO 50 ML/HR. ORDERED. INCONTINENT OF LARGE AMT DARK GREEN SOFT STOOLS. PERINEAL CARE DONE.
--- NOTE | 2016-08-27 10:57 | NUR ---
WENDY, I\L TX GIVEN WITH DUONEB 3ML WITH NO ADVERSE REACTION POST TX B\S ARE RHONCHI AND SNX PT MODERATE AMT OF YELLOW SECRETIONS, PT IS RESTING WITH NO SIGNS OF DISTRESS NOTED AT THIS TIME
--- NOTE | 2016-08-27 11:00 | NUR ---
DR. CORTES HERE TO SEE AND EXAMINE PT. IV DECREASED TO 20 ML/HR.
--- NOTE | 2016-08-27 12:00 | NUR ---
GT RESIDUAL 0. GT FEEDING INCREASED TO 40 ML/HR. INCT. OF SMALL AMT LOOSE DARK GREEN STOOLS. BATH GIVEN.
[2016-08-27] MEDS: NACL 0.9% 1,000 ML IV SCH ×2 (12:09→23:21)
--- NOTE | 2016-08-27 13:40 | NUR ---
VENT CHECK, NO SXN NEEDED AT THIS TIME, AIRWAY IS PATENT AND PT IS RESTING
--- NOTE | 2016-08-27 14:00 | NUR ---
TRACH TO VENT SAME SETTINGS. NO DISTRESS NOTED.
--- NOTE | 2016-08-27 14:28 | NUR ---
CM NOTE SPOKE WITH NURSE HORTON OF ICU TO INFORM HER THAT [facility] HAS BED AVAILABLE FOR THE PATIENT ANYTIME TODAY RM 24 BED A, NUMBER TO CALL FOR REPORT # [phone]. PATIENT'S NURSE TO PLEASE SET UP TRANSPORT WHEN PATIENT READY FOR DISCHARGE.
--- NOTE | 2016-08-27 15:05 | NUR ---
VENT CHECK, NO HHN GIVEN PT SLEEPING SXN PT LARGE AMT OF YELLOW SECRETIONS
[2016-08-27] MEDS ORDERED: [UNRECOGNIZED DRUG - OTHER] TP (15:18)
[2016-08-27] MEDS ORDERED: VANCOMYCIN HCL750 MG IV (15:24)
[2016-08-27] MEDS ORDERED: [UNRECOGNIZED DRUG - OTHER] IV (15:24)
[2016-08-27] MEDS ORDERED: MEROPENEM-1 GM/50 ML IV (15:24)
[2016-08-27] MEDS ORDERED: MAG SULF 2000 MG/WATER PREMIX 50 ML IV SCH (16:00)
--- NOTE | 2016-08-27 16:45 | NUR ---
MAG. RIDER 2 GMS STARTED. CALLED [facility]. INFORMED THEM THAT THERE IS A DELAY IN DC MAG. RIDER IS BEING GIVEN.
--- NOTE | 2016-08-27 16:50 | NUR ---
VENT CHECK, NO SXN NEEDED AT THIS TIME TIME, TRACH CARE DONE: CHANGED TRACH GAUZE AND INNER CANNULA PT IS RESTING WITH NO SIGNS OF DISTRESS NOTED AT THIS TIME
--- NOTE | 2016-08-27 17:00 | NUR ---
LORENZO GALEAS CALLED [facility] TO SET UP TRANSPORT TO [facility]. PER [facility] THEY WILL NOT BE ABLE TO TRANSPORT PT UNTIL MIDNIGHT.
--- NOTE | 2016-08-27 17:15 | NUR ---
CALLED [facility]. NOTIFIED OF THE TRANSPORT TIME.
--- NOTE | 2016-08-27 18:00 | NUR ---
[facility] CARE DONE. PT HAD ANOTHER BM.
--- NOTE | 2016-08-27 18:15 | NUR ---
DR. HELMS HERE.AWARE OF PT. TRANSPORT TIME.
--- NOTE | 2016-08-27 19:25 | NUR ---
REPORT GIVEN TO ADAL HAYES.
--- NOTE | 2016-08-27 19:30 | NUR ---
RECEIVED REPORT FROM ADAL RAMIREZ. INITIAL ASSESSMENT COMPLETED. PT IS NON VERBAL, TRACH TO VENT FIO2 30%, TV 500, AC 10, PEEP 5. IV ACCES LEFT IJ TLC, IVF INFUSING WELL. ATTACHED TO CLIENT CARE MANAGER, PULSE OXIMETER. ON CONTINUOUS GT FEEDING, NO RESIDUAL AT THIS TIME. OLIVARES CATH IN PLACE, SCDS IN PLACE. BED IN LOW POSITION, SAFETY MEASURE ENSURE, CONTACT PRECAUTION MAINTAINED. PT HAD A BOWEL MOVEMENT OF MODERATE AMOUNT OF SOFT GREENISH STOOL. SACRAL DRESSING CHANGED. WILL CONTINUE TO MONITOR.
[2016-08-27] MEDS: MONTELUKAST SODIUM 10 MG TAB PO SCH (20:58)
--- NOTE | 2016-08-27 21:10 | NUR ---
DR. MAYFIELD IN TO SEE PATIENT. DR. MAYFIELD NOTIFIED THAT PT WILL BE DISCHARGE TODAY AND JUST WAITING FOR TRANSPORT BY MIDNIGHT.
--- NOTE | 2016-08-27 22:05 | NUR ---
CALLED [facility] TO FOLLOW UP WITH SCHEDULED TRANSPORT, SPOKE TO STEPHANIE AND SAID PT IS SCHEDULED AT 2330. CHARGE NURSE AWARE.
--- NOTE | 2016-08-27 22:17 | NUR ---
CALLED [facility] AND REPORT GIVEN TO ADAL SALINAS. WILL CONTINUE TO MONITOR PT.
--- NOTE | 2016-08-27 23:50 | NUR ---
[facility] STAFF ARRIVED AT THE UNIT. REPORT GIVEN TO CLIFFORD SINGH RN, [facility] TRANSPORT VIA [facility] TO [facility]. PT IS ON GUARDED CONDITION, TRACH TO VENT. NO SIGNS OF DISTRESS/NO SOB AT THIS TIME. VSS UPON DISCHARGE.
--- NOTE | 2016-08-28 00:12 | NUR ---
PT LEFT THE UNIT ACCOMPANIED BY [facility] STAFFS VIA RADHA RAMON AT THIS TIME ON GUARDED CONDITION. Addendum: 08/28/16 at 0058 by Tiana Levy RN GREENHOUSE MANAGER NOTIFIED
[2016-08-28] MEDS ORDERED: POTASSIUM CHLORIDE 20% 40 MEQ/15 ML UDC GT SCH (09:00)
== END 2016-08-28 | DRG 710 ==
LOC: MED 14:16 → MIC 16:50
PROVIDERS: ADMIT Family Medicine; ATTEND Family Medicine
PROC: 5A1955Z Respiratory Ventilation, Greater than 96 Consecutive Hours (ICD-10-PCS; principal; 2016-08-19)
PROC: 05HN33Z Insertion of Infusion Device into Left Internal Jugular Vein, Percutaneous Approach (ICD-10-PCS; 2016-08-19)
PROC: B544ZZA Ultrasonography of Left Jugular Veins, Guidance (ICD-10-PCS; 2016-08-19)
PROC: 30233N1 Transfusion of Nonautologous Red Blood Cells into Peripheral Vein, Percutaneous Approach (ICD-10-PCS; 2016-08-21)
PROC: 0QB10ZZ Excision of Sacrum, Open Approach (ICD-10-PCS; 2016-08-22)
PROC: 0DJ08ZZ Inspection of Upper Intestinal Tract, Via Natural or Artificial Opening Endoscopic (ICD-10-PCS; 2016-08-23)
DX: A41.9 Sepsis, unspecified organism (principal); J96.20 Acute and chronic respiratory failure, unspecified whether with hypoxia or hypercapnia; N17.0 Acute kidney failure with tubular necrosis; R65.21 Severe sepsis with septic shock; J69.0 Pneumonitis due to inhalation of food and vomit; G93.41 Metabolic encephalopathy; K56.60 Unspecified intestinal obstruction; L89.153 Pressure ulcer of sacral region, stage 3; D68.69 Other thrombophilia; E43 Unspecified severe protein-calorie malnutrition; N39.0 Urinary tract infection, site not specified; I10 Essential (primary) hypertension; G40.909 Epilepsy, unspecified, not intractable, without status epilepticus; J44.1 Chronic obstructive pulmonary disease with (acute) exacerbation; K44.9 Diaphragmatic hernia without obstruction or gangrene; D62 Acute posthemorrhagic anemia; J44.9 Chronic obstructive pulmonary disease, unspecified; B96.89 Other specified bacterial agents as the cause of diseases classified elsewhere; K21.0 Gastro-esophageal reflux disease with esophagitis; Z16.23 Resistance to quinolones and fluoroquinolones; E11.51 Type 2 diabetes mellitus with diabetic peripheral angiopathy without gangrene; E87.6 Hypokalemia; E83.42 Hypomagnesemia; Z93.1 Gastrostomy status; I69.891 Dysphagia following other cerebrovascular disease; Z99.11 Dependence on respirator [ventilator] status; Z93.0 Tracheostomy status; Z68.23 Body mass index [BMI] 23.0-23.9, adult; Z79.899 Other long term (current) drug therapy; Z88.1 Allergy status to other antibiotic agents; I69.354 Hemiplegia and hemiparesis following cerebral infarction affecting left non-dominant side

== ENCOUNTER 2016-09-02 16:00 | Inpatient (IN) | payer MEDICAID ==
[~2016-09-02] VITALS: Ht 177.8 cm; Wt 70.0 kg
[~2016-09-02 16:00] MED LIST changes: +VANCOMYCIN HCL750 MG IV; +[UNRECOGNIZED DRUG - OTHER] IV; +[UNRECOGNIZED DRUG - OTHER] TP
--- NOTE | 2016-09-02 16:00 | NUR ---
PATIENT PRESENTS TO ED WITH C/O NOT TRACKING, VEGETATIVE STATE PT USUALLY IS ABLE TO TRACK PER REPORT. PRESENTS WITH IJ LEFT NECK, NO BLOOD RETURN TO ALL 3 LUMENS-SOME RESISTANCE TO FLUSH G-TUBE IN PLACE WITH MINUTE BRIGHT RED BLOOD SURROUNDING SITE TRACH IN PLACE--OLIVARES TO GRAVITY, INSERT SITE RIGHT SIDE OF PENIS SKIN IS PALE/COOL/DRY; LUNGS CLEAR BL; HR EVEN AND REGULAR; ; ; PATIENT POSITIONED FOR COMFORT; HOB ELEVATED; BEDRAILS UP X2; BED DOWN. ER MD MADE AWARE OF PT STATUS.
--- NOTE | 2016-09-02 16:00 | NUR ---
Patient BIBA ACLS, transferred to bed 3. Dr. Merrill and RN evaluating patient at bedside.
--- NOTE | 2016-09-02 16:05 | NUR ---
RECEIVED TRACH TO VENT PT THROUGH ER. PT PLACED ON VENT WITH SETTINGS AC 12, VT 500, PEEP 5 AND FIO2 100% BY . PT HAS TRACH SIZE PORTEX 8. TRACH CARE COMPLETED INNER CANNULA CHANGED ALONG WITH TRACH DRESSING AND TIES. VENT ALARMS ARE ON AND FUNCTIONING. VENT IS PLUGGED INTO RED OUTLET WITH AMBU BAG PRESENT AT BEDSIDE .WILL CONTINUE TO MONITOR. [facility] BEDSIDE.
[2016-09-02 16:07] VITALS: BP 88/45
[2016-09-02] MEDS ORDERED: VANCOMYCIN 1,000 MG in DEXTROSE 5% 250 ML IV ONE (16:10)
[2016-09-02 16:12] VITALS: BP 88/45
[2016-09-02] MEDS ORDERED: NACL 0.9% 1,000 ML IV SCH ×2 (16:12→18:38)
[2016-09-02] MEDS ORDERED: FAMOTIDINE 20 MG/2 ML VIAL IVP ONE ×2 (16:15)
[2016-09-02] MEDS ORDERED: CLINDAMYCIN 600 MG in DEXTROSE 5% 50 ML IV ONE (16:15)
[2016-09-02] MEDS ORDERED: VANCOMYCIN 1,000 MG VIAL ONE (16:25)
[2016-09-02] MEDS ORDERED: CLINDAMYCIN 600 MG/4 ML VIAL ONE (16:25)
--- NOTE | 2016-09-02 16:30 | NUR ---
IV RIGHT ARM INFILTRATED, BLANCHING NOTED SURROUND INSERT SITE--MD NOTIFIED AWAIT CXR TO CONFIRM IJ PLACEMENT FOR USE---UNABLE TO DRAW FROM IJ AND SOME RESISTANCE TO FLUSH
--- NOTE | 2016-09-02 16:35 | NUR ---
POST ABG RESULTS, DECREASED FIO2 TO 50% PER DR. MINA
--- NOTE | 2016-09-02 17:00 | NUR ---
X-Ray at bedside.
--- NOTE | 2016-09-02 17:20 | NUR ---
NOTIFIED PT'S HR TRENDING DOWN FROM 120 TO 70BPM---WILL PREPARE TO CODE
--- NOTE | 2016-09-02 17:30 | NUR ---
IJ OKAY TO USE [facility] [facility] RESISTANCE UPON FLUSHING PER .
--- NOTE | 2016-09-02 17:40 | NUR ---
PT REGAINED SPONTANEOUS CIRCULATION--HAD 1.5L OF GROUND COFFEE EMESIS DURING CODE
[2016-09-02] MEDS ORDERED: CALCIUM CHLORIDE 10% 1,000 MG in NACL 0.9% 100 ML IV ONE (17:50)
[2016-09-02] MEDS ORDERED: INSULIN HUMAN REGULAR 100 UNITS/ML 10 ML VIAL IVP ONE ×2 (17:55)
[2016-09-02] MEDS ORDERED: DEXTROSE 50% 50 ML SYR IVP ONE (17:55)
[2016-09-02] MEDS ORDERED: SODIUM POLYSTYRENE 15 GM/60 ML UDBTL PR ONE (18:00)
[2016-09-02] MEDS ORDERED: FUROSEMIDE 40 MG/4 ML VIAL IVP ONE (18:00)
--- NOTE | 2016-09-02 18:30 | NUR ---
Pt transferred to ICU BED 8 VIA EMMANUEL, REPORT GIVEN TO DENICE GALEAS---MICHAEL GALEAS AND RT ACCOMPANIED ME
[2016-09-02 18:31] VITALS: BP 52/31
[2016-09-02] MEDS ORDERED: ONDANSETRON 4 MG/2 ML VIAL IVP PRN (18:40)
[2016-09-02] MEDS ORDERED: MORPHINE SULFATE 2 MG/ML SYR IVP PRN (18:40)
[2016-09-02] MEDS ORDERED: KETOROLAC 30 MG/ML VIAL IVP PRN (18:40)
[2016-09-02] MEDS ORDERED: VANCOMYCIN 1GM/DEXT 5% PREMIX 200 ML IV SCH (18:45)
[2016-09-02] MEDS ORDERED: HYDROCORTISONE NA SUCC 100 MG/2 ML VIAL IV SCH (18:45)
--- NOTE | 2016-09-02 19:00 | NUR ---
DOPAMINE 30MCG /KG/MIN DOBUTAMINE 10MCG/KG/MIN PT REMAINS HYPOTENSIVE 2L NS CURRENTLY TO GRAVITY AWARE
--- NOTE | 2016-09-02 19:15 | NUR ---
PT TRANSFERRED FROM ER WITH S/P CODE BLUE VIA GURNEY AT 1905, PT IS NON-RESPONSIVE, PUPILS WERE NON-REACTIVE, PALPABLE WEAK CAROTID PULSE PRESENT, TRACH TO VENT WITH SETTING AC 12, FIO2 100, TV 750, DEEP 5. LEFT IJ CENTRAL LINE WITH TRIPLE LUMEN RUNNING WITH DOPAMINE 20 MCG/KG/MIN, DOBUTAMINE 22 MCG/KG/MIN, AND NS, LEAKING NOTED, NO BLOOD RETURN ON EACH LUMEN, TRIED TO INSERTED PERIPHERAL LINE, COULD NOT INSERTED, DR. MINA MADE AWARE, HOLD IV MEDS AT THIS TIME. GT TUBE PRESENT AND OLIVARES CATHETER PRESENT. V/S: BP:149/114, HR 98, RR 24, O2 SAT 75%.
--- NOTE | 2016-09-02 19:18 | NUR ---
PT IS UNSTABLE WITH CRITICAL CONDITION, UNABLE TO ADMISSION PER PROTOCOL AT THIS TIME. PT IS NON-RESPONSIVE, NO FAMILY MEMBERS, COULD NOT REACH THE PUBLIC GUARDIAN.
--- NOTE | 2016-09-02 19:20 | NUR ---
PT B/P DROPPED TO 42/20, HR 60. DR. MINA, DR. SHINE, AND DR. VALE AT PT'S BEDSIDE TO EVALUATE PT. PT'S CENTRAL VENOUS CATHETER HAD BECOME DISLODGED, DR. MINA REQUESTED TO INSERT ANOTHER CENTRAL LINE.
[2016-09-02 19:24] VITALS: BP 78/51
--- NOTE | 2016-09-02 19:25 | NUR ---
DR. BAKER AT BEDSIDE TO ASSESS PATIENT. PT'S SKIN COLOR TURNING EXTREMELY PALE, BP 43/19, HR 47, RR 14, TEMP 95.3F, O2 SAT 88%.
[2016-09-02] MEDS ORDERED: CALCIUM GLUCONATE 10% 1000 MG/10 ML VIAL IVP SCH (19:40)
--- NOTE | 2016-09-02 19:40 | NUR ---
PT PULSE WAS NON PALPABLE, AND PEA ON THE MONITOR, CODE BLUE CALLED. DR. MINA, DR. SHINE, DR. VALE, DR. BAKER. AND DR. FERNANDEZ AT BEDSIDE DURING CODE.
--- NOTE | 2016-09-02 19:47 | NUR ---
DR. BAKER PRONOUNCED TIME OF AT 1947. Addendum: 09/02/16 at 2241 by Anoop Brown RN DR. SHINE SIGNED CERTIFICATE. NURSING KICK PRESS OPERATOR Veronique WELLINGTON NOTIFIED OF PT'S .
--- NOTE | 2016-09-02 19:55 | NUR ---
CALLED LILIBETH WATSON (DEPUTY PUB.GUARDIAN), NO RESPOND, NOT ABLE TO LEAVE MESSAGE AT THIS TIME. Addendum: 09/02/16 at 2245 by Anoop Brown RN [facility], NOTIFIED OF PT'S . SHE SAID SHE COULD NOT REACH THE GUARDIAN EITHER, AND NO INFORMATION REGARDING THE MORTUARY.
--- NOTE | 2016-09-02 20:30 | NUR ---
REPORT THE OF PT TO NYASIA MORSE. CASE #[id number]. PT IS NOT QUALIFIED FOR [facility] AT THIS TIME.
--- NOTE | 2016-09-02 20:38 | NUR ---
ADMITTING, EMELY, NOTIFIED OF OF PT.
[2016-09-02] MEDS ORDERED: MEROPENEM 1,000 MG in NACL 0.9% 100 ML IV SCH (21:00)
--- NOTE | 2016-09-02 21:30 | NUR ---
REPORT THE OF PT TO RUBBER GOODS TESTER DEPUTY COFFEY, , AND BODY RELEASED BY RUBBER GOODS TESTER. Addendum: 09/02/16 at 2247 by Anoop Brown RN NOTIFIED DEPUTY CORTEZ ABOUT COULD NOT REACH THE PUBLIC GUARDIAN, HE SAID HE WILL EMAIL THE GUARDIAN TO NOTIFY HIM.
--- NOTE | 2016-09-02 23:00 | NUR ---
REMOVED THE OLIVARES CATHETER, IO CATHETHER, TRACH TUBE, CLEANED THE PT'S BODY AND PUT THE BODY IN THE BAG.
--- NOTE | 2016-09-02 23:40 | NUR ---
CHECKER AND PACKER ALEXX CALLED BACK IN 1 HR WILL SENT SOME BODY TO PICKUP THE BODY.
--- NOTE | 2016-09-03 02:19 | NUR ---
PATIENT'S BODY ON BODY BAG WITH PROPER IDENTIFICATION PICKED UP BY [facility]. FORMS SIGNED. PATIENT HAS NO FAMILY.
[2016-09-03] MEDS ORDERED: HYDROCORTISONE NA SUCC 100 MG/2 ML VIAL IV SCH (09:00)
[2016-09-03] MEDS ORDERED: PANTOPRAZOLE 40 MG INJ VIAL IVP SCH (09:00)
== END 2016-09-03 02:20 | disposition expired | DRG 720 ==
LOC: MED 16:00 → MIC 18:25
PROVIDERS: ADMIT Student in an Organized Health Care Education/Training Program; ATTEND Student in an Organized Health Care Education/Training Program
PROC: 5A1935Z Respiratory Ventilation, Less than 24 Consecutive Hours (ICD-10-PCS; principal; 2016-09-02)
PROC: 5A12012 Performance of Cardiac Output, Single, Manual (ICD-10-PCS; 2016-09-02)
DX: A41.9 Sepsis, unspecified organism (principal); J96.20 Acute and chronic respiratory failure, unspecified whether with hypoxia or hypercapnia; N17.0 Acute kidney failure with tubular necrosis; J69.0 Pneumonitis due to inhalation of food and vomit; E43 Unspecified severe protein-calorie malnutrition; Z99.11 Dependence on respirator [ventilator] status; J18.1 Lobar pneumonia, unspecified organism; Z93.0 Tracheostomy status; J44.1 Chronic obstructive pulmonary disease with (acute) exacerbation; K94.23 Gastrostomy malfunction; R13.10 Dysphagia, unspecified; E11.9 Type 2 diabetes mellitus without complications; K21.9 Gastro-esophageal reflux disease without esophagitis; G40.909 Epilepsy, unspecified, not intractable, without status epilepticus; R74.0 Nonspecific elevation of levels of transaminase and lactic acid dehydrogenase [LDH]; K44.9 Diaphragmatic hernia without obstruction or gangrene; E11.65 Type 2 diabetes mellitus with hyperglycemia; T85.628A Displacement of other specified internal prosthetic devices, implants and grafts, initial encounter; I10 Essential (primary) hypertension; E87.5 Hyperkalemia; I69.354 Hemiplegia and hemiparesis following cerebral infarction affecting left non-dominant side; Z88.1 Allergy status to other antibiotic agents; Z79.899 Other long term (current) drug therapy; I69.391 Dysphagia following cerebral infarction; Z93.1 Gastrostomy status